=== PATIENT | female | born 2000 | race Caucasian/White ===

== ENCOUNTER 2023-06-03 18:25 | Emergency (ER) | payer MEDICAID, SELFPAY ==
[2023-06-03 18:53] VITALS: BP 127/101; PULSE 107; RESP 22; TEMP 36.4; O2SAT 98
--- NOTE | 2023-06-03 19:05 | ED.GENADUL_ITS ---
HPI General Mode of arrival: ambulatory . Date/Time Provider Initiated Documentation: 06/03/23 18:57 . Limitations to Documentation: no limitations . Information obtained by: patient, RN notes reviewed and old records reviewed . HPI Narrative: 22-year-old female presents to the ER with a chief complaint of suicidal ideation for the last week. She does have a history of major depressive disorder, PTSD, OCD and states that she wants to take all of her medications. She does endorse marijuana and occasional alcohol she reports drinking 2-3 beers or drinks a few days ago. She reports chronic nausea vomiting. She is slightly clammy, slightly tachycardic with a pulse of 107 hypertensive with blood pressure 127/101. She is guarded and avoids eye contact seems calm and cooperative and answers all my questions. She denies doing anything to herself recently to hurt herself. She does have a history of undisclosed self harm, none recent. Related Data Home Medications Medication Instructions Recorded Confirmed docusate sodium 100 mg capsule 100 mg PO BID 06/03/23 06/03/23 duloxetine 40 mg capsule,delayed 40 mg PO DAILY 06/03/23 06/03/23 release sprinkle guanfacine 1 mg tablet 1 mg PO DAILY 06/03/23 06/03/23 hydroxyzine HCl 25 mg tablet 25 mg PO BID 06/03/23 06/03/23 meloxicam 15 mg tablet 15 mg PO DAILY 06/03/23 06/03/23 mirtazapine 15 mg tablet 15 mg PO DAILY 06/03/23 06/03/23 naltrexone 50 mg tablet 50 mg PO DAILY 06/03/23 06/03/23 Allergies Allergy/AdvReac Type Severity Reaction Status Date / Time No Known Allergies Allergy Unverified 06/03/23 19:48 General Stated Complaint: PsychEval CIERA: 2 Review of Systems All systems reviewed & are unremarkable except as noted in HPI and below Constitutional Constitutional: Denies fever(s) and Denies headache(s) ENT Ears, Nose, Mouth, and Throat: Denies headache(s) Gastrointestinal Gastrointestinal: Reports diarrhea (Patient reports chronic) and Reports nausea (Patient reports chronic) Neurologic Neurologic: Denies headache(s) Psychiatric Psychiatric: Reports as per HPI, Reports depression and Reports suicidal ideation Exam Narrative Exam Narrative: Constitutional: Alert and oriented x3. Appears stated age. Normal body habitus. Disheveled, smells of body odor, slightly clammy. Head: Normocephalic, no trauma. Eyes: Pupils PERRL, Red reflex noted, EOM's intact. Eyelids symmetrical without lesions, discharge, or swelling. Chest: RRR, Normal S1, S2, distal pulses intact. Resp: Lungs clear to auscultation bilaterally, no wheezes, rales, or rhonchi. Abdomen: Soft, non-distended, Normoactive bowel sounds all 4 quads. Musculoskeletal: Normal gait, 5/5 strength to all four extremities. Skin: No suspicious rashes or lesions. Capillary refill less than 2 sec. Neurologic: Cranial nerves II-XII intact. Alert and oriented x 3. Motor: No de ficits noted. Sensory: Intact bilaterally all 4 extremities. Reflexes: DTR's intact bilaterally.. Hematologic/Lymphatic: No ecchymosis, no lymphadenopathy. Psych: See below. Psych Appearance: disheveled Speech and Movement: speech and movement normal and slowed movement Mood: anxious mood Affect: labile affect and blunted Attitude: cooperative Thought Process: normal Thought Content: suicidality Insight: insight good Judgment: judgment good Course Vital Signs Vital signs: Vital Signs Temperature 36.4 C 06/03/23 18:53 Pulse 107 06/03/23 18:53 Respiratory Rate 22 06/03/23 18:53 Blood Pressure 127/101 06/03/23 18:53 Pulse Oximetry 98 06/03/23 18:53 Temperature 36.4 C 06/03/23 18:53 Temperature Source Tympanic 06/03/23 18:53 Pulse 107 06/03/23 18:53 Respiratory Rate 22 06/03/23 18:53 Blood Pressure 127/101 06/03/23 18:53 Pulse Oximetry 98 06/03/23 18:53 Oxygen Delivery Method Room Air 06/03/23 18:53 Oxygen Flow Rate 0 06/03/23 18:53 Lab/Test Results Lab/Test Results: POC- Test(urine) Negative Medical Decision Making 22-year-old female presents to the ER with a chief complaint of suicidal ideation for the last week. She does have a history of major depressive disorder, PTSD, OCD and states that she wants to take all of her medications. She does endorse marijuana and occasional alcohol she reports drinking 2-3 beers or drinks a few days ago. She reports chronic nausea vomiting. She is slightly clammy, slightly tachycardic with a pulse of 107 hypertensive with blood pressure 127/101. She is guarded and avoids eye contact seems calm and cooperative and answers all my questions. She denies doing anything to herself recently to hurt herself. She does have a history of undisclosed self harm, none recent. Patient does not qualify for smart medical clearance form due to her vital signs, workup ordered including CBC CMP TSH, urinalysis UDS urine . 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 Patient medically cleared. Labs are noted below. 2107: Chelsea with [facility] reports they are seeking voluntary inpatient placement for suicidal ideation. Patient does have a plan. Will place her daily medications diet vital signs. Care is to be handed off to oncoming provider Dr. San pending placement, patient has remained hemodynamically stable, cooperative throughout the remainder of her stay. She did receive her p.m. medications. Orders placed. Lab Data Lab results reviewed: Yes I reviewed the patient's lab results. Labs: Laboratory Tests Range/Units 06/03/23 06/03/23 18:38 19:20 WBC 10^3/uL 4.01 RBC 10^6/uL 4.82 Hgb g/dL 14.7 Hct % 42.2 MCV fL 88 MCH pg 30.5 MCHC % 34.8 RDW % 12.7 Plt Count 10^3/uL 242 MPV fL 10.3 Immature Gran % 0.2 Neutrophils % 43.9 Lymphocytes % 38.4 Monocytes % 17.0 Eosinophils % 0.0 Basophils % 0.5 Nucleated RBC % % 0.0 Absolute Neutrophils 10^3/uL 1.76 Absolute Lymphocytes 10^3/uL 1.54 Absolute Monocytes 10^3/uL 0.68 Absolute Eosinophils 10^3/uL 0.00 Absolute Basophils 10^3/uL 0.02 Sodium mmol/L 139 Potassium mmol/L 3.5 Chloride mmol/L 101 Carbon Dioxide mmol/L 26.8 Anion Gap mmol/L 11.2 BUN mg/dL 7 Creatinine mg/dL 0.8 Est GFR (CKD-EPI 2020) Not Applicable Glucose mg/dL 94 Calcium mg/dL 9.2 Total Bilirubin mg/dL 0.6 AST U/L 12 ALT U/L 18 Alkaline Phosphatase U/L 79 Total Protein g/dL 8.0 Albumin g/dL 4.1 TSH uIU/mL 4.12 Urine Color Yellow Urine Clarity Clear Urine pH 6.5 Ur Specific [place] 1.025 Urine Protein mg/dL Trace Urine Ketones mg/dL 40 Urine Blood Negative Urine Nitrite Negative Urine Bilirubin Small Urine Urobilinogen mg/dL 1.0 Ur Leukocyte Esterase Negative Urine Glucose mg/dL Negative Salicylates mg/dL < 2.8 Urine Opiates Screen (Negative) Negative Urine Methadone Screen (Negtative) Negative Acetaminophen ug/mL < 2 Ur Barbiturates Screen (Negative) Negative Ur Tricyclics Screen (Negtive) Negative Ur Amphetamines Screen (Negative) Negative U Benzodiazepines Scrn (Negative) Negative Urine Cocaine Screen (Negative) Negative Ur THC Screen (Negative) Positive A Ethyl Alcohol mg/dL < 3.0 Quality:SDOH Health Related Social Needs: No Data to Display PFSH All Active Problems (Updated 06/03/23 @ 19:11 by Maritza Braun NP) Korey-Danlos syndrome (Acute) OCD (obsessive compulsive disorder) (Acute) Major depression (Chronic) PTSD (post-traumatic stress disorder) (Acute) Social History Smoking risk assessment performed?: No Female Reproductive History Menstrual control method: implanted (Nexplanon) Discharge Plan Discharge Details Chief Complaint: PsychEval Primary Care Provider: Ally Bradford ED Provider: Maritza Braun Home Meds and New Rx's Prescriptions: No Action duloxetine 40 mg capsule, delayed rel sprinkle 40 mg PO DAILY mirtazapine 15 mg tablet 15 mg PO DAILY guanfacine 1 mg tablet 1 mg PO DAILY meloxicam 15 mg tablet 15 mg PO DAILY docusate sodium 100 mg capsule 100 mg PO BID naltrexone 50 mg tablet 50 mg PO DAILY hydroxyzine HCl 25 mg tablet 25 mg PO BID
[2023-06-03 19:26] LABS: Abs Immature Grans 0.01 10^3/uL; Absolute Basophil Count 0.02 10^3/uL; Absolute Lymphocyte Count 1.54 10^3/uL; Absolute Monocyte Count 0.68 10^3/uL; Absolute Neutrophil Count 1.76 10^3/uL; Basophils % 0.5; HCT 42.2 %; HGB 14.7 g/dL; Immature Grans % 0.2; Lymphocytes % 38.4; MCH 30.5 pg; MCHC 34.8 %; MCV 88 fL; MPV 10.3 fL; Neutrophils % 43.9; Platelet Count 242 10^3/uL; RBC 4.82 10^6/uL; RDW 12.7 %; RDW-SD 40.7 fL; WBC 4.01 10^3/uL
[2023-06-03 19:26] LABS: Bilirubin Small; Blood Negative; Clarity Clear; Glucose Negative; Ketones 40 mg/dL; Leukocyte Esterase Negative; Nitrite Negative; Specific Gravity 1.025; pH 6.5
[2023-06-03 19:44] LABS: *AMPHETAMINES SCREEN URINE Negative (Negative); *BARBITURATES SCREEN URINE Negative (Negative); *BENZODIAZEPINES SCREEN URINE Negative (Negative); Cannabinoids THC Positive (Negative); Cocaine Screen,Urine Negative (Negative); METHADONE URINE SCREEN Negative (Negtative); OPIATES URINE SCREEN Negative (Negative)
[2023-06-03 19:45] LABS: Tricyclic Antidepressants Negative (Negtive)
[2023-06-03 19:51] LABS: ALT 18 U/L; AST 12 U/L; Albumin 4.1 g/dL; Alkaline Phosphatase 79 U/L; Anion Gap 11.2 mmol/L; BUN 7 mg/dL; Bilirubin, Total 0.6 mg/dL; CO2 26.8 mmol/L; CREATININE 0.8 mg/dL; Calcium 9.2 mg/dL; Chloride 101 mmol/L; Glucose 94 mg/dL; Potassium 3.5 mmol/L; Sodium 139 mmol/L; TSH (W/Ref FT4) 4.12 uIU/mL
[2023-06-03 19:52] LABS: Salicylate < 2.8 mg/dL
[2023-06-03 19:53] LABS: Acetaminophen < 2 ug/mL
[2023-06-03 19:59] LABS: ETHANOL BLOOD < 3.0 mg/dL
[2023-06-03] MEDS: Docusate Sodium 100 MG/10 ML CUP PO (22:26)
[2023-06-03] MEDS: hydrOXYzine HCL 25 MG TAB PO (22:26)
[2023-06-04] MEDS: guanFACINE 1 MG TAB PO (00:07)
[2023-06-04] MEDS: Mirtazapine 15 MG TAB PO (00:08)
--- NOTE | 2023-06-04 02:55 | PDOC.MHCN_ITS ---
Date of service: 06/03/23 Time of Service: 20:40 PHQ-9 Over the last 2 weeks, how often have you been bothered by any of the following problems? 1. Little interest or pleasure in doing things: nearly every day 2. Feeling down, depressed, or hopeless: nearly every day 3. Trouble falling or staying asleep, or sleeping too much: nearly every day 4. Feeling tired or having little energy: nearly every day 5. Poor appetite or overeating: nearly every day 6. Feeling bad about yourself - or that you are a failure or have let yourself and your family down: nearly every day 7. Trouble concentrating on things, such as reading the newspaper or watching television: nearly every day 8. Moving or speaking so slowly that other people could have noticed? - Or the opposite - being so fidgety or restless that you have been moving around a lot more than usual: not at all 9. Thoughts that you would be better off or of hurting yourself in some way: nearly every day Total score: 24 Source: Developed by Drs. Mic Pedro, Yoli Santana, Levar James and colleagues, with an educational emre from [employer]. Suicide Severity Rate CSSRS Have you wished you were or wished you could go to sleep and not wake up?: Yes Have you actually had any thoughts of killing yourself?: Yes CSSRS2 Have you been thinking about how you might do this?: Yes Have you had these thoughts and had some intention of acting on them?: Yes Have you started to work out or worked out the details of how to kill yourself? Do you intend to carry out this plan?: Yes CSSRS3 Have you ever done anything, started to do anything or prepared to do anything to end your life?: Yes CSSRS4 Was this within the past three months?: No Screening Score Total Score: 6 Screening: Positive Mental Health Emergency Note Release [facility] release signed:: Yes Reason for Visit In the last 2 weeks has the pt presented for ES prior to today?: No Non Suicidal Self Injury Current: Yes, cutting History: yes, cutting, last time around a month ago Safety Risk/Harm to Self or Others Current Ideation to Harm Self or Others: Yes to self. Intent: yes, has intent. Plan: yes,has a plan. History of suicide attempt: yes,history of suicide attempt reported. Details of previous suicide attempt: Client tried to overdose on medications in 2013 Asssessment/Mental Status Appearance: Disheveled Attitude: Cooperative Behavior: Unremarkable Speech: Soft, Slow and Hesitant Affect: Cogruent with mood Mood: Depressed Thought process: Unremarkable Hallucinations: No evidence Delusions: No evidence Attention: Unremarkable Perception: Not impaired Orientation: Fully orientated Memory: Intact Insight: Good Judgement: Good Neurovegetative Symptoms Sleep: Decrease Appetitie: Decrease Interests: Decrease Energy: Decrease Substance Use: Have you used substances in the last 7 days?: yes, AL and THC two-three days prior Impression Client reported to this greeting card writer that she has been suffering from a depressive episode for the past two months. Client reported that she has been suffering from thoughts of suicide for the past two weeks. Client reported a plan, intent, and access to end her life by suicide. Client reported that her plan would be to take all her medications with the intent to overdose, client reported that she has attempted before in the past but was unsuccessful and slept for 20 hours after the attempt. Client reported a decrease in her sleep, appetite, energy, and interest. Client rated her intent a 9/10 if she were to leave the hospital. Client reported the occasional usage of THC and alcohol, both being used two- three days prior to ED visit. Client reported that she is currently prescribed medications. Client appeared to this greeting card writer and extremely depressed due to her slow, soft speech. Clients? appearance to this greeting card writer was unremarkable. Client was cooperative during the assessment process. Client reported that she came to the ED looking for inpatient treatment at this time for her current depressive episode. Client scored a 24/27 on the PHQ-9, answered yes to all the CSSRS and PC-PTSD-5 questions during the assessment. Client is currently set up with the agency and does see a therapist with the agency. Client did miss her most recent appo intment due to the current state the client is in. Client reported that she lives with her mother and is not currently working or going to school. Plan/Disposition Recommended Disposition: Hospitalization No. Plan: [facility] the client. Client will need daily reassessments until placement is found.? Reports/communication Outcome discussed with: ED/Personnel
--- NOTE | 2023-06-04 03:10 | NUR.NOTE ---
Pt medical clearance info sent to [facility]
--- NOTE | 2023-06-04 08:03 | W.EDPROG ---
Date of service: 06/04/23 Time of Service: 08:03 Medical Decision Making Patient here voluntarily for SI and no issues reported on previous shift currently calm and cooperative with no acute complaints will continue to monitor until safe disposition found Quality:SDOH Health Related Social Needs: No Data to Display Discharge Plan Discharge Details Chief Complaint: PsychEval Primary Care Provider: Ally Bradford ED Provider: Vishnu Hale Home Meds and New Rx's Prescriptions: No Action duloxetine 40 mg capsule, delayed rel sprinkle 40 mg PO DAILY mirtazapine 15 mg tablet 15 mg PO DAILY guanfacine 1 mg tablet 1 mg PO DAILY meloxicam 15 mg tablet 15 mg PO DAILY docusate sodium 100 mg capsule 100 mg PO BID naltrexone 50 mg tablet 50 mg PO DAILY hydroxyzine HCl 25 mg tablet 25 mg PO BID
[2023-06-04 08:59] VITALS: BP 129/80; PULSE 87; RESP 16; TEMP 206.6; TEMP 97; O2SAT 99
[2023-06-04] MEDS: Naltrexone 50 MG TAB PO (10:41)
[2023-06-04] MEDS: Docusate Sodium 100 MG CAP PO (10:41)
[2023-06-04] MEDS: Meloxicam 15 MG TAB PO (10:42)
== END 2023-06-04 14:51 ==
PROVIDERS: Registered Nurse Emergency; Emergency Provider Emergency Medicine; PCP Family Medicine
DX: R45.851 Suicidal ideations (principal); F32.A Depression, unspecified
CPT/HCPCS: 00123; 80053; 80307; 81025; 96127; 99285; 80320; 80329; 81003; 84443; 85025; 99284

== ENCOUNTER 2023-08-12 18:19 | Emergency (ER) | payer MEDICAID, SELFPAY ==
[2023-08-12 18:23] VITALS: BP 132/72; PULSE 104; RESP 18; TEMP 36.4; O2SAT 97
[2023-08-12 18:34] VITALS: BP 132/72; PULSE 104; RESP 18; TEMP 36.4; O2SAT 97
[2023-08-12 18:35] VITALS: BP 132/72; PULSE 104; RESP 18; TEMP 36.4; O2SAT 97
[2023-08-12 18:36] VITALS: BP 132/72; PULSE 104; RESP 18; TEMP 36.4; O2SAT 97
--- NOTE | 2023-08-12 18:36 | ED.GENADUL_ITS ---
Discharge Plan Disposition Patient Disposition: Home Condition: Stable Discharge Details Clinical Impression: Gastroenteritis Primary Care Provider: Ally Bradford ED Provider: Cooper Reyez Home Meds and New Rx's Prescriptions: New ondansetron 4 mg tablet,disintegrating 4 mg PO Q8H PRN (Reason: nausea and vomiting) Qty: 30 0RF Continued duloxetine 40 mg capsule, delayed rel sprinkle 40 mg PO DAILY mirtazapine 15 mg tablet 30 mg PO DAILY guanfacine 1 mg tablet 1 mg PO BID meloxicam 15 mg tablet 15 mg PO DAILY docusate sodium 100 mg capsule 100 mg PO BID naltrexone 50 mg tablet 50 mg PO DAILY hydroxyzine HCl 25 mg tablet 50 mg PO QHS gabapentin 300 mg capsule 300 mg PO TID Discharge Instructions Instructions: Ondansetron (By mouth), Gastroenteritis (ED) Additional Instructions: You were seen in the emergency department for your likely viral gastroenteritis. Your laboratory workup is completely reassuring, there is no elevation of white blood cells, no derangement of your electrolytes, your magnesium is within normal limits indicating nonurgent GI losses of vomiting and diarrhea. Your liver enzymes and pancreas enzymes are within normal limits I do not think there is any gallbladder or gallstone pathology occurring. Please try to use the prescribed Zofran at home 20 to 30 minutes before attempting p.o. intake, do not try to overwhelm your stomach, go very slow with foods and hydration. I sent your prescription of Zofran to [facility] in [place]. Please use therapeutic dosing of Tylenol (acetamenophen) & Advil (ibuprofen) in an alternating fashion as follows: Take 1000mg of Tylenol every 6 hours without missing doses- that is 4 times per day. Long Term in between the Tylenol dosings, take 400-600mg of Advil also on a 6 hour schedule, that is also 4 times per day. The daily maximum dosing of Tylenol is 4000mg, and the daily maximum dosing of Advil is 2400mg. This is safe to do for weeks. Please note that some common cold medications & prescription pain medications may contain acetamenophen and you need to read OTC drug labels and factor that in to maximum daily dosings. Please return for severe increase in abdominal pain especially with fever, intractable nausea and vomiting despite her treatment, black or bloody stools. Referrals: Alyl Bradford [Primary Care Provider] - HPI General Date/Time Provider Initiated Documentation: 08/12/23 18:26 . HPI Narrative: 23 year-old female presents to ED today by POV/ambulating with a chief complaint of nausea/vomiting/diarrhea with onset yesterday- reports vomiting x4, did have a preceding mild URI that appeared to resolve last week. Quality described as abdominal pain diffusely, no radiation to black/bloody diarrhea, blood-tinged emesis, overt fever, cough, shortness of breath, dizziness, weakness. Severity is described as severe. Palliating factors include nothing specific attempted. Provoking factors include nothing specific. 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 Patient not anticoagulated. Related Data Home Medications Medication Instructions Recorded Confirmed docusate sodium 100 mg capsule 100 mg PO BID 06/03/23 08/12/23 duloxetine 40 mg capsule,delayed 40 mg PO DAILY 06/03/23 08/12/23 release sprinkle guanfacine 1 mg tablet 1 mg PO BID 06/03/23 08/12/23 hydroxyzine HCl 25 mg tablet 50 mg PO QHS 06/03/23 08/12/23 meloxicam 15 mg tablet 15 mg PO DAILY 06/03/23 08/12/23 mirtazapine 15 mg tablet 30 mg PO DAILY 06/03/23 08/12/23 naltrexone 50 mg tablet 50 mg PO DAILY 06/03/23 08/12/23 gabapentin 300 mg capsule 300 mg PO TID 08/12/23 08/12/23 ondansetron 4 mg disintegrating 4 mg PO Q8H PRN nausea and 08/12/23 tablet vomiting #30 tabs Previous Rx's Medication Instructions Recorded ondansetron 4 mg disintegrating 4 mg PO Q8H PRN nausea and 08/12/23 tablet vomiting #30 tabs Allergies Allergy/AdvReac Type Severity Reaction Status Date / Time No Known Allergies Allergy Unverified 06/04/23 11:32 General Stated Complaint: Abd Prob CIERA: 3 Review of Systems All systems reviewed & are unremarkable except as noted in HPI and below Exam Narrative Exam Narrative: GENERAL APPEARANCE: Well-nourished, non-toxic, awake and alert, atraumatic, no acute distress. SKIN: Warm, pink, dry, intact, without rashes/lesions/ulcerations. HEAD: Normocephalic, atraumatic, normal hair distribution for gender/age. EYES: Pupils PERRLA, EOMs intact without nystagmus, normal conjunctiva, no exudates on lids/lashes. ENT: Nares patent, no circumoral cyanosis, no facial swelling NECK: Supple, trachea midline, painless cervical ROM. LUNGS/CHEST: Lungs CTA bilaterally- no rhonchi/rales/wheezes diffusely, non- labored respirations, normal A/P diameter, symmetrical expansion, no chest wall deformity HEART (CV/PV): Regular rate and rhythm without murmur, no peripheral edema, no JVD. ABDOMEN: Soft, non-distended, no guarding, LLQ tenderness, epigastric/RUQ tenderness, negative Rovsing's MSK: Normal ROM, no swelling/deformity to bilateral UEs or LEs, moving all extremities without weakness, no cyanosis, spine midline without tenderness, normal curvature. NEURO: Mental Status AAOx4 - alert to person, place, time, events No facial droop, no forehead involvement. Motor: No focal weakness - strength 5/5 in bilateral UEs and LEs, proximal and distal, symmetric. Sensory: sensation intact to light touch globally. Gait normal: patient ambulated without ataxia into ED room. PSYCH: euthymic, cooperative, pleasant, appropriate speech Course Vital Signs Vital signs: Vital Signs Temperature 36.4 C 08/12/23 18:23 Pulse 104 08/12/23 18:23 Respiratory Rate 18 08/12/23 18:23 Blood Pressure 132/72 08/12/23 18:23 Pulse Oximetry 97 08/12/23 18:23 Temperature 36.4 C 08/12/23 18:35 Temperature Source Temporal Artery Scan 08/12/23 18:35 Pulse 104 08/12/23 18:35 Respiratory Rate 18 08/12/23 18:35 Blood Pressure 132/72 08/12/23 18:35 Blood Pressure Position Sitting 08/12/23 18:35 Pulse Oximetry 97 08/12/23 18:35 Oxygen Delivery Method Room Air 08/12/23 18:35 Oxygen Flow Rate 0 08/12/23 18:35 Lab/Test Results Lab/Test Results: POC- Test(urine) Negative Medical Decision Making This dictation utilizes [id number] dictation software and may contain unedited grammatical errors. 23 y/o F presents to ED today with a chief complaint of N/V/D x2 days, had a preceding URI. Denies profound weakness, denies black/bloody diarrhea, no overt fevers, no syncope/chest pain/shortness of breath. Patients' medical history: Korey-Danlos, hypermobile with some IBS type symptoms. Family and social history: noncontributory. Pertinent exam findings / vital signs include RUQ/LLQ abdominal tenderness, nontoxic vitals, benign cardiopulmonary exam, neuro intact. Differential / pathologies of concern include gastroenteritis, colitis, delayed gastric emptying/gastroparesis, viral syndrome, biliary pathology. Diagnostic studies of: -CBC, BMP, liver panel, magnesium, lipase, lactate, CRP/ESR, urinalysis, POC urine test, COVID/flu/RSV PCR > imaging decision based on labs. -POC urine negative -Lactate 1.8 -CBC benign -CMP no abnormality at all -Magnesium WNL -UA benign -Lipase WNL -CRP/ESR WNL Interventions of: -1L IVF LR, 4mg IV Zofran, 15mg IV toradol, 1g IV APAP. ED Course/Assessment/Plan: 23-year-old biological female patient presents with nausea vomiting and diarrhea with some diffuse abdominal pain, her symptoms improved significantly with IV Tylenol and Toradol and Zofran and IV fluids. Her laboratory workup is very reassuring I do not think she needs imaging at this time. She was comfortable with watchful waiting at home for likely resolution of viral gastroenteritis within the coming days. I counseled her on therapeutic dosing of Tylenol and ibuprofen and sent a prescription for Zofran to [facility] in [place]. The patient's mother was present also for this discussion and they are to return for any severe increase in abdominal pain especially with fever, intractable nausea vomiting despite our treatment or any black or bloody stools. Findings not consistent with perforated viscus, appendicitis, biliary tree pathology, pancreatitis, . Disposition of Gastroenteritis. Patient verbalized understanding of the plan and return to ED criteria and engaged in shared decision making. Medical Records Medical records reviewed: Yes I reviewed the patient's medical records. Lab Data Lab results reviewed: Yes I reviewed the patient's lab results. Labs: Laboratory Tests Range/Units 08/12/23 08/12/23 18:30 19:05 WBC 10^3/uL 7.25 RBC 10^6/uL 4.82 Hgb g/dL 14.8 Hct % 43.0 MCV fL 89 MCH pg 30.7 MCHC % 34.4 RDW % 11.9 Plt Count 10^3/uL 292 MPV fL 10.8 Immature Gran % 0.3 Neutrophils % 75.7 Lymphocytes % 19.4 Monocytes % 4.0 Eosinophils % 0.0 Basophils % 0.6 Nucleated RBC % % 0.0 Absolute Neutrophils 10^3/uL 5.49 Absolute Lymphocytes 10^3/uL 1.41 Absolute Monocytes 10^3/uL 0.29 Absolute Eosinophils 10^3/uL 0.00 Absolute Basophils 10^3/uL 0.04 ESR mm/hr 11 VBG Lactate mmol/L 1.8 Sodium mmol/L 141 Potassium mmol/L 3.6 Chloride mmol/L 103 Carbon Dioxide mmol/L 25.1 Anion Gap mmol/L 12.9 BUN mg/dL 9 Creatinine mg/dL 0.9 Est GFR (CKD-EPI 2020) Not Applicable Glucose mg/dL 108 Calcium mg/dL 9.5 Magnesium mg/dL 1.9 Total Bilirubin mg/dL 0.5 Conjugated Bilirubin mg/dL 0.1 AST U/L 16 ALT U/L 20 Alkaline Phosphatase U/L 96 C-Reactive Protein mg/dL < 0.50 Total Protein g/dL 8.1 Albumin g/dL 4.3 Lipase U/L 25 Urine Color Yellow Urine Clarity Clear Urine pH 7.5 Ur Specific [place] 1.020 Urine Protein mg/dL Negative Urine Ketones mg/dL >=160 Urine Blood Negative Urine Nitrite Negative Urine Bilirubin Negative Urine Urobilinogen mg/dL 0.2 Ur Leukocyte Esterase Negative Urine Glucose mg/dL Negative Quality:SDOH Health Related Social Needs: No Data to Display PFSH All Active Problems (Updated 08/12/23 @ 19:39 by MATT High) Gastroenteritis (Acute) Korey-Danlos syndrome (Acute) OCD (obsessive compulsive disorder) (Acute) Major depression (Chronic) PTSD (post-traumatic stress disorder) (Acute) Social History Smoking/Tobacco Use Status: Never Smoking risk assessment performed?: Yes Drug use: Occasionally Substance use type: marijuana Do you feel safe at home: Yes Female Reproductive History Menstrual control method: implanted (Nexplanon)
[2023-08-12] MEDS: Ondansetron 4 MG/2 ML VIAL IVP (18:56)
[2023-08-12] MEDS: Ketorolac 15 MG/ML VIAL IVP (18:57)
[2023-08-12] MEDS: ACETAMINOPHEN 1,000 MG/100 ML BTL 400 MG IVPB (19:02)
[2023-08-12] MEDS: Lactated Ringers 1,000 ML 1000 ML IV (19:07)
[2023-08-12 19:10] LABS: Lactate 1.8 mmol/L
[2023-08-12 19:11] LABS: Abs Immature Grans 0.02 10^3/uL; Absolute Basophil Count 0.04 10^3/uL; Absolute Lymphocyte Count 1.41 10^3/uL; Absolute Monocyte Count 0.29 10^3/uL; Absolute Neutrophil Count 5.49 10^3/uL; Basophils % 0.6; HGB 14.8 g/dL; Immature Grans % 0.3; Lymphocytes % 19.4; MCH 30.7 pg; MCHC 34.4 %; MCV 89 fL; MPV 10.8 fL; Neutrophils % 75.7; Platelet Count 292 10^3/uL; RBC 4.82 10^6/uL; RDW 11.9 %; RDW-SD 38.9 fL; WBC 7.25 10^3/uL
[2023-08-12 19:13] LABS: ESR 11 mm/hr
[2023-08-12 19:20] LABS: Bilirubin Negative; Blood Negative; Clarity Clear; Glucose Negative; Ketones >=160 mg/dL; Leukocyte Esterase Negative; Nitrite Negative; Urobilinogen 0.2 mg/dL; pH 7.5
[2023-08-12 19:32] LABS: ALT 20 U/L; AST 16 U/L; Albumin 4.3 g/dL; Alkaline Phosphatase 96 U/L; Anion Gap 12.9 mmol/L; BUN 9 mg/dL; Bilirubin, Direct 0.1 mg/dL; Bilirubin, Total 0.5 mg/dL; CO2 25.1 mmol/L; CREATININE 0.9 mg/dL; Calcium 9.5 mg/dL; Chloride 103 mmol/L; Glucose 108 mg/dL; Lipase 25 U/L; Magnesium 1.9 mg/dL; Potassium 3.6 mmol/L; Sodium 141 mmol/L; Total Protein 8.1 g/dL
[2023-08-12 19:33] LABS: C-Reactive Protein < 0.50 mg/dL
[2023-08-12] MEDS: Ondansetron O.D.T. 4 MG TABEF, 3 TABS/BTL PO (19:49)
[2023-08-12 19:50] VITALS: BP 126/77; PULSE 77; RESP 18; O2SAT 99
[2023-08-12 20:22] LABS: COVID-19 PCR Negative; Influenza A PCR Negative; Influenza B PCR Negative; RSV PCR Negative; Source Nasopharynx
== END 2023-08-12 19:51 | disposition home or self-care (01) ==
PROVIDERS: Emergency Provider Physician Assistant; PCP Family Medicine
DX: K52.9 Noninfective gastroenteritis and colitis, unspecified; Q79.62 Hypermobile Ehlers-Danlos syndrome; R11.2 Nausea with vomiting, unspecified
CPT/HCPCS: 80048; 80076; 81025; 83690; 85652; 87637; 96374; 96375; 99284; 81003; 83605; 83735; 85025; 86140; J0131; J1885; J2405

== ENCOUNTER 2023-08-15 10:32 | Emergency (ER) | payer MEDICAID, SELFPAY ==
[2023-08-15] VITALS (25 sets, daily range): BP systolic 129–159; BP diastolic 79–116; PULSE 75–146; RESP 20; TEMP 37.1; O2SAT 94–99
--- NOTE | 2023-08-15 10:48 | W.ED.GENAD ---
Discharge Plan Disposition Patient Disposition: Home Condition: Stable Discharge Details Clinical Impression: Anxiety, Nausea & vomiting Primary Care Provider: Ally Bradford ED Provider: Vishnu Hale Home Meds and New Rx's Prescriptions: Continued duloxetine 40 mg capsule, delayed rel sprinkle 40 mg PO DAILY mirtazapine 15 mg tablet 30 mg PO DAILY guanfacine 1 mg tablet 1 mg PO BID meloxicam 15 mg tablet 15 mg PO DAILY docusate sodium 100 mg capsule 100 mg PO BID naltrexone 50 mg tablet 50 mg PO DAILY hydroxyzine HCl 25 mg tablet 50 mg PO QHS gabapentin 300 mg capsule 300 mg PO TID ondansetron 4 mg tablet,disintegrating 4 mg PO Q8H PRN (Reason: nausea and vomiting) Qty: 30 0RF Discharge Instructions Additional Instructions: Lab work did not show concerning findings at this time Follow-up with your primary care provider this week I feel more ill, have severe worsening pain or persistent vomiting return to the emergency department for reevaluation HPI General Mode of arrival: ambulatory. Date/Time Provider Initiated Documentation: 08/15/23 10:33. Limitations to Documentation: no limitations. Information obtained by: patient. History of Present Illness 23 year old U presents to the emergency department with the chief complaint of n/v, described as moderate, Patient started experiencing this day(s) (4) and it has been intermittent. No relieving factors improve symptom(s), No exacerbating factors reported . Patient notes denies chest pain, fever/chills and shortness of breath. Patient did receive the following treatments prior to arrival, none Related Data Home Medications Medication Instructions Recorded Confirmed docusate sodium 100 mg capsule 100 mg PO BID 06/03/23 08/15/23 duloxetine 40 mg capsule,delayed 40 mg PO DAILY 06/03/23 08/15/23 release sprinkle guanfacine 1 mg tablet 1 mg PO BID 06/03/23 08/15/23 hydroxyzine HCl 25 mg tablet 50 mg PO QHS 06/03/23 08/15/23 meloxicam 15 mg tablet 15 mg PO DAILY 06/03/23 08/15/23 mirtazapine 15 mg tablet 30 mg PO DAILY 06/03/23 08/15/23 naltrexone 50 mg tablet 50 mg PO DAILY 06/03/23 08/15/23 gabapentin 300 mg capsule 300 mg PO TID 08/12/23 08/15/23 ondansetron 4 mg disintegrating 4 mg PO Q8H PRN nausea and 08/12/23 08/15/23 tablet vomiting #30 tabs Previous Rx's Medication Instructions Recorded ondansetron 4 mg disintegrating 4 mg PO Q8H PRN nausea and 08/12/23 tablet vomiting #30 tabs Allergies Allergy/AdvReac Type Severity Reaction Status Date / Time No Known Allergies Allergy Unverified 08/15/23 11:13 General Stated Complaint: Abd Prob CIERA: 3 Review of Systems All systems reviewed & are unremarkable except as noted in HPI and below Constitutional Constitutional: Denies chills, Denies fever(s) and Denies weakness Cardiovascular Cardiovascular: Denies chest pain and Denies dyspnea Respiratory Respiratory: Denies cough and Denies dyspnea Gastrointestinal Gastrointestinal: Reports abdominal pain, Reports nausea and Reports vomiting Genitourinary Genitourinary: Denies dysuria Genitourinary: Denies dysuria Musculoskeletal Musculoskeletal: Denies joint swelling Integumentary/Breasts Skin/Breast: Denies rash Neurologic Neurologic: Denies weakness Psychiatric Psychiatric: Denies depression Endocrine Endocrine: Denies cold intolerance and Denies heat intolerance Allergic/Immunologic Allergic/Immunologic: Denies urticaria Exam Const General: no acute distress Orientation: alert [facility] Head: normal to inspection Ears: external ears normal General nose exam: external nose normal Mouth: moist mucous membranes Eyes General: appearance normal, both eyes and all related structures Neck Neck: normal visual inspection Resp Effort & Inspection: normal respiratory effort and able to speak in complete sentences Cardio Rate: regular rate GI Palpation: soft, not firm, no guarding and nontender Skin General skin exam: no rashes or lesions noted Neuro General: patient alert and patient oriented x3 Extrem General: normal to inspection Psych Mental Status: mental status grossly normal Course Vital Signs Vital signs: Vital Signs Temperature 37.1 C 08/15/23 10:37 Pulse 111 08/15/23 10:37 Respiratory Rate 08/15/23 10:37 Blood Pressure 144/107 08/15/23 10:37 Pulse Oximetry 96 08/15/23 10:37 Temperature 37.1 C 08/15/23 10:37 Temperature Source Oral 08/15/23 10:37 Pulse 111 08/15/23 10:37 Respiratory Rate 08/15/23 10:37 Blood Pressure 144/107 08/15/23 10:37 Blood Pressure Position Sitting 08/15/23 10:37 Pulse Oximetry 96 08/15/23 10:37 Oxygen Delivery Method Room Air 08/15/23 10:37 Oxygen Flow Rate 0 08/15/23 10:37 Pain Level 4 08/15/23 10:37 Medical Decision Making 23-year-old female with a history of PTSD, OCD, who comes in with nausea vomiting intermittently for several days. Was seen earlier this week and had reassuring lab work and exam was discharged with Zofran. She says the Zofran does help her have nausea but anytime she tries to eat she still throws up. She says when she is throwing up she has some pain in the epigastric area, has no pain currently and has no abdominal tenderness. She is alert and oriented x 4 speaking clearly in no distress. Given lack of abdominal tenderness do not feel imaging at this time indicated, will check for electrolyte abnormalities and hydrate and treat her symptoms with droperidol and reassess. Was unremarkable, did become anxious and hyperventilating after getting droperidol, no rashes or other findings to suggest allergic reaction. Benadryl and Ativan ordered will reassess. Patient feeling better, tolerating p.o., no abdominal tenderness. Do not feel any further testing or imaging indicated, she is stable for discharge and advised to follow-up with her primary care provider return precautions given Differential Diagnosis Differential Diagnosis: Dehydration, cyclic vomiting, cannabinoid hyperemesis syndrome Medical Records Medical records reviewed: Yes I reviewed the patient's medical records. Lab Data Lab results reviewed: Yes I reviewed the patient's lab results. Quality:SDOH Health Related Social Needs: No Data to Display PFSH All Active Problems (Updated 08/15/23 @ 12:24 by Vishnu Hale MD) Nausea & vomiting (Acute) Anxiety (Chronic) Gastroenteritis (Acute) Korey-Danlos syndrome (Acute) OCD (obsessive compulsive disorder) (Acute) Major depression (Chronic) PTSD (post-traumatic stress disorder) (Acute) Social History Smoking/Tobacco Use Status: Never Smoking risk assessment performed?: Yes Drug use: Occasionally Substance use type: marijuana Do you feel safe at home: Yes Female Reproductive History Menstrual control method: implanted (Nexplanon)
[2023-08-15] MEDS: Normal Saline 1,000 ML 1000 ML IV (11:00)
[2023-08-15] MEDS: Droperidol 5 MG/2 ML VIAL 2.5 MG IVP (11:01)
[2023-08-15 11:16] LABS: Abs Immature Grans 0.02 10^3/uL; Absolute Basophil Count 0.03 10^3/uL; Absolute Eosinophil Count 0.02 10^3/uL; Absolute Lymphocyte Count 1.63 10^3/uL; Absolute Monocyte Count 0.32 10^3/uL; Basophils % 0.4; Eosinophils % 0.3; HCT 43.1 %; Immature Grans % 0.3; Lymphocytes % 24.3; MCH 30.9 pg; MCHC 34.8 %; MCV 89 fL; MPV 10.7 fL; Monocytes % 4.8; Neutrophils % 69.9; Platelet Count 254 10^3/uL; RBC 4.86 10^6/uL; RDW 11.8 %; RDW-SD 37.9 fL; WBC 6.72 10^3/uL
[2023-08-15 11:31] LABS: ALT 20 U/L; AST 14 U/L; Albumin 4.5 g/dL; Alkaline Phosphatase 92 U/L; Anion Gap 15.5 mmol/L; BUN 20 mg/dL; Bilirubin, Total 0.9 mg/dL; CO2 22.5 mmol/L; CREATININE 0.8 mg/dL; Calcium 9.3 mg/dL; Chloride 102 mmol/L; Glucose 104 mg/dL; Lipase 27 U/L; Potassium 3.6 mmol/L; Sodium 140 mmol/L; Total Protein 8.2 g/dL
[2023-08-15] MEDS: diphenhydrAMINE 50 MG/ML VIAL 25 MG IVP (11:46)
[2023-08-15 11:52] LABS: HCG Qual (Serum) Negative
[2023-08-15 12:20] LABS: Bilirubin Small; Blood Negative; Clarity Sl Cloudy; Glucose Negative; Ketones >=160 mg/dL; Leukocyte Esterase Negative; Nitrite Negative; Specific Gravity 1.025
[2023-08-15] MEDS: LORazepam 2 MG/ML VIAL 1 MG IVP (12:28)
== END 2023-08-15 13:07 | disposition home or self-care (01) ==
PROVIDERS: Emergency Provider Emergency Medicine; PCP Family Medicine
DX: R11.2 Nausea with vomiting, unspecified (principal); F41.9 Anxiety disorder, unspecified
CPT/HCPCS: 80053; 81025; 83690; 96361; 96374; 96375; 99284; 81003; 83735; 84703; 85025; 99283; J1200; J1790; J2060

== ENCOUNTER 2023-09-18 18:24 | Emergency (ER) | payer MEDICAID, SELFPAY ==
[2023-09-18 18:26] VITALS: BP 125/92; PULSE 119; RESP 18; TEMP 37.5; O2SAT 98
--- NOTE | 2023-09-18 18:32 | ED.GENADUL_ITS ---
Discharge Plan Disposition Patient Disposition: Home Condition: Stable Discharge Details Clinical Impression: Nausea & vomiting Primary Care Provider: Ally Bradford ED Provider: Sheila Marques Home Meds and New Rx's Prescriptions: Continued duloxetine 40 mg capsule, delayed rel sprinkle 40 mg PO DAILY mirtazapine 15 mg tablet 30 mg PO DAILY guanfacine 1 mg tablet 1 mg PO BID meloxicam 15 mg tablet 15 mg PO DAILY docusate sodium 100 mg capsule 100 mg PO BID naltrexone 50 mg tablet 50 mg PO DAILY hydroxyzine HCl 25 mg tablet 50 mg PO QHS gabapentin 300 mg capsule 300 mg PO TID Discharge Instructions Instructions: Acute Nausea and Vomiting (ED) Additional Instructions: Clear liquids advance diet as tolerated Use ondansetron 4 mg every 4 hours if needed for nausea and vomiting Referrals: Ally Bradford [Primary Care Provider] - (If needed) HPI General Mode of arrival: ambulatory . Date/Time Provider Initiated Documentation: 09/18/23 18:31 . Limitations to Documentation: no limitations . Information obtained by: patient . HPI Narrative: Presents with a 1 day history of nausea vomiting and lower abdominal discomfort. States she vomited twice today unable to keep anything down. No fever or chills no close sick contacts with similar symptoms. Does not have a menstrual period has an Implanon. Reports that she has a history of cannabinoid hyperemesis and has had similar symptoms associated with that. Tried a warm pack to her abdomen with no significant improvement in her symptoms. She does not try any ondansetron prior to arrival states that she Related Data Home Medications Medication Instructions Recorded Confirmed docusate sodium 100 mg capsule 100 mg PO BID 06/03/23 09/18/23 duloxetine 40 mg capsule,delayed 40 mg PO DAILY 06/03/23 09/18/23 release sprinkle guanfacine 1 mg tablet 1 mg PO BID 06/03/23 09/18/23 hydroxyzine HCl 25 mg tablet 50 mg PO QHS 06/03/23 09/18/23 meloxicam 15 mg tablet 15 mg PO DAILY 06/03/23 09/18/23 mirtazapine 15 mg tablet 30 mg PO DAILY 06/03/23 09/18/23 naltrexone 50 mg tablet 50 mg PO DAILY 06/03/23 09/18/23 gabapentin 300 mg capsule 300 mg PO TID 08/12/23 09/18/23 Allergies Allergy/AdvReac Type Severity Reaction Status Date / Time No Known Allergies Allergy Unverified 09/18/23 18:30 General Stated Complaint: Nausea/Vomit/Diar CIERA: 3 Review of Systems All systems reviewed & are unremarkable except as noted in HPI and below Exam Const General: cooperative, comfortable and no acute distress Nutritional Appearance: average body habitus Orientation: alert, awake and oriented x3 HENMT Head: normal to inspection, normocephalic and atraumatic Face and sinus: normal facial exam Mouth: moist mucous membranes abnormal (Slightly dry no exudate) Eyes General: appearance normal, both eyes and all related structures Chest Chest: normal inspection of the chest Resp Effort & Inspection: normal respiratory effort Cardio Rate: tachycardic GI Inspection: normal to inspection Palpation: soft and tender Skin General skin exam: no rashes or lesions noted Neuro General: patient alert, patient awake and patient oriented x3 Extrem General: normal to inspection and full ROM Psych Affect: blunted Attitude: cooperative Course Vital Signs Vital signs: Vital Signs Temperature 37.5 C 09/18/23 18:26 Pulse 119 09/18/23 18:26 Respiratory Rate 18 09/18/23 18:26 Blood Pressure 125/92 09/18/23 18:26 Pulse Oximetry 98 09/18/23 18:26 Temperature 37.5 C 09/18/23 18:26 Temperature Source Skin 09/18/23 18:26 Pulse 119 09/18/23 18:26 Respiratory Rate 18 09/18/23 18:26 Respiratory Effort Normal 09/18/23 18:29 Blood Pressure 125/92 09/18/23 18:26 Blood Pressure Position Sitting 09/18/23 18:26 Pulse Oximetry 98 09/18/23 18:26 Oxygen Delivery Method Room Air 09/18/23 18:26 Oxygen Flow Rate 0 09/18/23 18:26 Medical Decision Making Presents with a 1 day history of nausea vomiting and lower abdominal discomfort will start with IV fluids Zofran check urine urine and reassess. Symptoms not consistent with renal colic, physical exam not concerning for an acute intra-abdominal emergency such as appendicitis, diverticulitis, perforation, pancreatitis, peptic ulcer disease. Symptoms are most consistent with either a gastroenteritis or cannabinoid hyperemesis. No lab or imaging recommended at this time. Hemodynamically she is stable physical exam is reassuring. Patient reports improvement in her symptoms after receiving 1 L of normal saline and 4 mg of ondansetron. She is tolerating clear liquids and stable for discharged home. Will dispense 3 tabs of 4 mg ondansetron for home use if needed for nausea and vomiting she was advised to return sooner for new or worsening symptoms Medical Records Medical records reviewed: Yes I reviewed the patient's medical records. Lab Data Lab results reviewed: Yes I reviewed the patient's lab results. Lab results narrative: Negative urine and negative UA for pyuria or blood Labs: Laboratory Results - last 24 hr 09/18/23 18:43 Urine Color Yellow Urine Clarity Clear Urine pH 7.0 Ur Specific [place] 1.015 Urine Protein Negative Urine Ketones Negative Urine Blood Negative Urine Nitrite Negative Urine Bilirubin Negative Urine Urobilinogen 0.2 Ur Leukocyte Esterase Negative Urine Glucose Negative Quality:SDOH Health Related Social Needs: No Data to Display PFSH All Active Problems (Updated 09/18/23 @ 19:46 by Sheila Marques NP) Nausea & vomiting (Acute) Korey-Danlos syndrome (Acute) OCD (obsessive compulsive disorder) (Acute) Major depression (Chronic) PTSD (post-traumatic stress disorder) (Acute) Social History Smoking/Tobacco Use Status: Never Smoking risk assessment performed?: Yes Drug use: Occasionally Substance use type: marijuana Do you feel safe at home: Yes Female Reproductive History Menstrual control method: implanted
[2023-09-18 18:51] LABS: Bilirubin Negative; Blood Negative; Clarity Clear; Glucose Negative; Ketones Negative; Leukocyte Esterase Negative; Nitrite Negative; Specific Gravity 1.015; Urobilinogen 0.2 mg/dL
[2023-09-18 19:08] VITALS: BP 125/92; PULSE 119; RESP 18; TEMP 37.5; O2SAT 98
[2023-09-18] MEDS: Ondansetron 4 MG/2 ML VIAL IVP (19:08)
[2023-09-18] MEDS: Normal Saline 1,000 ML 1000 ML IV (19:08)
[2023-09-18] MEDS: Ondansetron O.D.T. 4 MG TABEF, 3 TABS/BTL PO (19:59)
[2023-09-18 20:00] VITALS: BP 120/81; PULSE 96; RESP 16; TEMP 37.3; O2SAT 98
== END 2023-09-18 20:00 | disposition home or self-care (01) ==
PROVIDERS: Emergency Provider Nurse Practitioner Acute Care; PCP Family Medicine
DX: R11.2 Nausea with vomiting, unspecified (principal); R10.30 Lower abdominal pain, unspecified
CPT/HCPCS: 81025; 96361; 96374; 99284; 81003; 99283; J2405

== ENCOUNTER 2023-10-02 20:34 | Emergency (ER) | payer MEDICAID, SELFPAY ==
[2023-10-02 20:38] VITALS: BP 146/94; PULSE 123; RESP 22; TEMP 37.6; O2SAT 98
--- NOTE | 2023-10-02 20:50 | ED.GENADUL_ITS ---
Discharge Plan Discharge Details Chief Complaint: PsychEval Clinical Impression: Major depression Primary Care Provider: Ally Bradford ED Provider: Vishnu Hale Home Meds and New Rx's Prescriptions: No Action hydroxyzine HCl 25 mg tablet 50 mg PO QHS Qty: 2 0RF mirtazapine 15 mg tablet 30 mg PO DAILY Qty: 2 0RF guanfacine 1 mg tablet 1 mg PO BID meloxicam 15 mg tablet 15 mg PO DAILY docusate sodium 100 mg capsule 100 mg PO BID naltrexone 50 mg tablet 50 mg PO DAILY gabapentin 300 mg capsule 300 mg PO TID methocarbamol 500 mg tablet 500 mg PO QHS HPI General Mode of arrival: ambulatory . Date/Time Provider Initiated Documentation: 10/02/23 20:35 . Limitations to Documentation: no limitations . Information obtained by: patient . History of Present Illness 23 year old U presents to the emergency department with the chief complaint of thoughts of self harm, described as moderate, Patient started experiencing this week(s) (1) and it has been constant. No relieving factors improve symptom(s), No exacerbating factors reported . Patient notes no other symptoms.. Related Data Home Medications Medication Instructions Recorded Confirmed docusate sodium 100 mg capsule 100 mg PO BID 06/03/23 10/02/23 guanfacine 1 mg tablet 1 mg PO BID 06/03/23 10/02/23 meloxicam 15 mg tablet 15 mg PO DAILY 06/03/23 10/02/23 naltrexone 50 mg tablet 50 mg PO DAILY 06/03/23 10/02/23 gabapentin 300 mg capsule 300 mg PO TID 08/12/23 10/02/23 hydroxyzine HCl 25 mg tablet 50 mg (2 x 25 mg) PO QHS #2 tabs 09/21/23 10/02/23 mirtazapine 15 mg tablet 30 mg (2 x 15 mg) PO DAILY #2 tabs 09/21/23 10/02/23 methocarbamol 500 mg tablet 500 mg PO QHS 10/02/23 10/02/23 Previous Rx's Medication Instructions Recorded hydroxyzine HCl 25 mg tablet 50 mg (2 x 25 mg) PO QHS #2 tabs 09/21/23 mirtazapine 15 mg tablet 30 mg (2 x 15 mg) PO DAILY #2 tabs 09/21/23 Allergies Allergy/AdvReac Type Severity Reaction Status Date / Time No Known Allergies Allergy Unverified 10/02/23 20:53 General Stated Complaint: PsychEval CIERA: 2 Review of Systems All systems reviewed & are unremarkable except as noted in HPI and below Constitutional Constitutional: Denies chills, Denies fever(s) and Denies weakness Cardiovascular Cardiovascular: Denies chest pain and Denies dyspnea Respiratory Respiratory: Denies cough and Denies dyspnea Gastrointestinal Gastrointestinal: Denies abdominal pain, Denies nausea and Denies vomiting Genitourinary Genitourinary: Denies dysuria Genitourinary: Denies dysuria Integumentary/Breasts Skin/Breast: Denies rash Neurologic Neurologic: Denies weakness Psychiatric Psychiatric: Reports depression Endocrine Endocrine: Denies cold intolerance and Denies heat intolerance Exam Const General: no acute distress Orientation: alert HENMT Head: normal to inspection Ears: external ears normal General nose exam: external nose normal Mouth: moist mucous membranes Eyes General: appearance normal, both eyes and all related structures Neck Neck: normal visual inspection Resp Effort & Inspection: normal respiratory effort and able to speak in complete sentences Cardio Rate: regular rate Skin General skin exam: no rashes or lesions noted Neuro General: patient alert and patient oriented x3 Extrem General: normal to inspection Psych Appearance: well kempt Speech and Movement: speech and movement normal Course Vital Signs Vital signs: Vital Signs Temperature 37.6 C 10/02/23 20:38 Pulse 123 10/02/23 20:38 Respiratory Rate 22 10/02/23 20:38 Blood Pressure 146/94 10/02/23 20:38 Pulse Oximetry 98 10/02/23 20:38 Temperature 37.6 C 10/02/23 20:38 Temperature Source Temporal Artery Scan 10/02/23 20:38 Pulse 123 10/02/23 20:38 Respiratory Rate 22 10/02/23 20:38 Respiratory Effort Normal, Non-Labored 10/02/23 20:40 Blood Pressure 146/94 10/02/23 20:38 Blood Pressure Position Sitting 10/02/23 20:38 Pulse Oximetry 98 10/02/23 20:38 Oxygen Delivery Method Room Air 10/02/23 20:38 Oxygen Flow Rate 0 10/02/23 20:38 Pain Level 0 10/02/23 20:38 Medical Decision Making 23-year-old female with a history of OCD and depression, comes in with complaints of increased thoughts of self-harm over the past week. Denies acting on her thoughts, has states that she would plan on overdosing on her meds if she did. She is alert and oriented on arrival with a normal gait, normal speech, has a flat affect. No focal deficits. She is medically cleared to see mental health. Will have mental health evaluate and obtain screening labs. Given her reassuring exam and consistent with her chronic depression do not feel an u nderlying medical process is the cause of her symptoms. Labs unremarkable, patient stable. Seen by NK chest and will be seeking voluntary placement for depression and SI. Differential Diagnosis Differential Diagnosis: Depression, SI Medical Records Medical records reviewed: Yes I reviewed the patient's medical records. Lab Data Lab results reviewed: Yes I reviewed the patient's lab results. Quality:SDOH Health Related Social Needs: No Data to Display PFSH All Active Problems (Updated 10/02/23 @ 22:44 by Vishnu Hale MD) Nausea & vomiting (Acute) Korey-Danlos syndrome (Acute) OCD (obsessive compulsive disorder) (Acute) Major depression (Chronic) PTSD (post-traumatic stress disorder) (Acute) Social History Smoking/Tobacco Use Status: Never Smoking risk assessment performed?: Yes Alcohol Intake: never Drug use: Occasionally Substance use type: marijuana Housing: house Do you feel safe at home: Yes Do you feel safe in your relationship?: Yes Additional Social history: unable to assess alone Female Reproductive History Menstrual control method: implanted
[2023-10-02 20:57] LABS: Bilirubin Negative; Blood Negative; Clarity Clear; Glucose Negative; Ketones Negative; Leukocyte Esterase Negative; Nitrite Negative; Specific Gravity 1.015; Urobilinogen 0.2 mg/dL
[2023-10-02 21:10] LABS: *AMPHETAMINES SCREEN URINE Negative (Negative); *BARBITURATES SCREEN URINE Negative (Negative); *BENZODIAZEPINES SCREEN URINE Negative (Negative); Cannabinoids THC Positive (Negative); Cocaine Screen,Urine Negative (Negative); METHADONE URINE SCREEN Negative (Negtative); OPIATES URINE SCREEN Negative (Negative); Tricyclic Antidepressants Negative (Negtive)
[2023-10-02 21:15] LABS: Abs Immature Grans 0.02 10^3/uL; Absolute Basophil Count 0.03 10^3/uL; Absolute Eosinophil Count 0.01 10^3/uL; Absolute Lymphocyte Count 1.04 10^3/uL; Absolute Monocyte Count 0.33 10^3/uL; Absolute Neutrophil Count 7.24 10^3/uL; Basophils % 0.3 %; Eosinophils % 0.1 %; HCT 42.8 %; HGB 14.6 g/dL; Immature Grans % 0.2 %; MCH 30.7 pg; MCHC 34.1 %; MCV 90 fL; MPV 10.6 fL; Monocytes % 3.8 %; Neutrophils % 83.6 %; Platelet Count 271 10^3/uL; RBC 4.76 10^6/uL; RDW 12.8 %; RDW-SD 42.3 fL; WBC 8.67 10^3/uL
[2023-10-02 21:36] LABS: Salicylate < 2.8 mg/dL
[2023-10-02 21:37] LABS: Acetaminophen < 2 ug/mL
[2023-10-02 21:51] LABS: ALT 20 U/L; AST 10 U/L; Albumin 4.1 g/dL; Alkaline Phosphatase 90 U/L; BUN 7 mg/dL; Bilirubin, Total 0.4 mg/dL; CREATININE 0.9 mg/dL; Calcium 9.1 mg/dL; Chloride 104 mmol/L; Glucose 113 mg/dL; Potassium 3.5 mmol/L; Sodium 141 mmol/L; TSH (W/Ref FT4) 4.87 uIU/mL (0.36-3.74); Total Protein 7.5 g/dL
[2023-10-02 22:13] LABS: ETHANOL BLOOD < 3.0 mg/dL; FREE T4 0.84 ng/dL
[2023-10-02] MEDS: Docusate Sodium 100 MG/10 ML CUP PO (23:11)
[2023-10-02] MEDS: Gabapentin 300 MG CAP PO (23:11)
[2023-10-02] MEDS: hydrOXYzine HCL 25 MG TAB 50 MG PO (23:13)
[2023-10-02] MEDS: Methocarbamol 500 MG TAB PO (23:14)
[2023-10-02] MEDS: Mirtazapine 15 MG TAB 30 MG PO (23:14)
[2023-10-02] MEDS: guanFACINE 1 MG TAB PO (23:17)
[2023-10-02] MEDS: Ondansetron O.D.T. 4 MG TABEF (23:50)
--- NOTE | 2023-10-03 00:48 | PDOC.MHCN_ITS ---
Date of service: 10/02/23 Time of Service: 09:50 PHQ-9 Over the last 2 weeks, how often have you been bothered by any of the following problems? 1. Little interest or pleasure in doing things: nearly every day 2. Feeling down, depressed, or hopeless: nearly every day 3. Trouble falling or staying asleep, or sleeping too much: nearly every day 4. Feeling tired or having little energy: more than half the days 5. Poor appetite or overeating: several days 6. Feeling bad about yourself - or that you are a failure or have let yourself and your family down: nearly every day 7. Trouble concentrating on things, such as reading the newspaper or watching television: several days 8. Moving or speaking so slowly that other people could have noticed? - Or the opposite - being so fidgety or restless that you have been moving around a lot more than usual: not at all 9. Thoughts that you would be better off or of hurting yourself in some way: nearly every day Total score: 19 Source: Developed by Drs. Mic Pedro, Yoli Santana, Levar James and colleagues, with an educational emre from [employer]. Suicide Severity Rate CSSRS Have you wished you were or wished you could go to sleep and not wake up?: Yes Have you actually had any thoughts of killing yourself?: Yes CSSRS2 Have you been thinking about how you might do this?: Yes Have you had these thoughts and had some intention of acting on them?: Yes Have you started to work out or worked out the details of how to kill yourself? Do you intend to carry out this plan?: Yes CSSRS3 Have you ever done anything, started to do anything or prepared to do anything to end your life?: Yes Screening Score Total Score: 6 Screening: Positive Mental Health Emergency Note Release [facility] release signed:: Yes Reason for Visit extreme SI In the last 2 weeks has the pt presented for ES prior to today?: No Client Information Client is: Adult Outpatient Well Housed: Yes Non Suicidal Self Injury Current: Yes, none History: yes, medication Safety Risk/Harm to Self or Others Current Ideation to Harm Self or Others: Yes to self. Intent: yes, has intent. Plan: yes,has a plan. Risk: Does risk to harm exist?: yes. Risk: High Risk Duty to warn indicated: No Asssessment/Mental Status Appearance: Other Attitude: Cooperative Behavior: Unremarkable Speech: Soft Affect: Cogruent with mood Mood: Sad and Depressed Thought process: Goal directed Hallucinations: No Delusions: No Attention: Unremarkable Perception: Not impaired Orientation: Fully orientated Memory: Intact Insight: Fair Judgement: Fair Neurovegetative Symptoms Sleep: Increase Appetitie: Disordered Interests: Decrease Energy: Decrease Libido: Not applicable Substance Use: Other Drug Issues: Other Do you use nicotine?: No Have you used substances in the last 7 days?: yes, all of it Additional Issues: Assaultive/Threatening Behavior: No Medical Concerns: Yes Client engaged in active self harm w/weapon: No Threatening to run away: No Child reported abuse/neglect: No Voluntarily presenting for services: Yes Domestic violence is a concern: No Extreme Psychosis or extreme behavior is present: No Impression Patient desires to go inpatient due to her extreeme depression and SI intent [facility] and [facility]88 Plan/Disposition Recommended Disposition: Hospitalization facilities contacted. Plan: Patient will wait on Zone B until an inpatient treatment facility bed has an opening Facilities contacted if Applicable [facility] Accepted, Pending review. Information Sent to [place]: Referral [facility] Accepted, Pending review. Information Sent to [facility]: Referral [facility] Accepted, Pending review. Information Sent to [place]: Referral, [facility] Accepted, Pending review. Information Sent to [place]: Referral Reports/communication Outcome discussed with: ED/Personnel
[2023-10-03] MEDS: Docusate Sodium 100 MG CAP PO (08:18)
[2023-10-03] MEDS: guanFACINE 1 MG TAB PO (08:19)
[2023-10-03] MEDS: Meloxicam 15 MG TAB PO (08:19)
[2023-10-03 08:20] VITALS: BP 119/83; PULSE 86; RESP 16; TEMP 36.7; O2SAT 96
[2023-10-03] MEDS: Naltrexone 50 MG TAB PO (08:20)
[2023-10-03] MEDS: Gabapentin 300 MG CAP PO ×2 (08:25→14:08)
[2023-10-03] MEDS: DULoxetine 20 MG CAP 40 MG PO (08:57)
--- NOTE | 2023-10-03 13:30 | CMSP_ITS ---
Date of service: 10/03/23 Time of Service: 11:30 Care Management Safety Plan Status Status: Voluntary Safety Plan Safety Plan: VOLUNTARY FOR INPATIENT PSYCHIATRIC STABILIZATION.? Faaidra is appropriate in all interactions since arriving at [facility]; Pt has demonstrated appropriate coping and communication skills, has articulated their needs and concerns and is fully engaged during staff interactions. Safety plan has been established with patient, and care team, to adhere to patient goals, identify restrictions based on behavioral status, address nutrition, and determine allowed personal belongings, tools for hygiene and personal care. Determine level of activity including ambulation, level of supervision, visitors, and determine privileges based on behaviors and level of engagement by pt. VOLUNTARY SAFETY PLAN: 1. Will remain on suicide precautions, in paper clothes 2. Will remain in Zone B under direct supervision of one-on-one staff at all times provided by [employer]; [employer], [employer]ESTRY AND WILDLIFE MANAGER incinerator operator. 3. May have paper cups, plates, finger foods as well as a cardboard spoon with which to eat meals. 4. Follow [facility] Management of the Admitted Behavioral Health Patient policy. 5. Shower available in Zone B without restriction. 6. Personal belongings-soft items permitted at RN discretion. 7. Visitors-none at this time. 8. Activities: soft cart items approved per RN discretion. 9.? Bathroom available in Zone B without restriction. 10. Phone: limited to [facility] cordless phone at RN discretion. Due to VOLUNTARY status, if patient wishes to leave [facility], staff will contact [facility] Crisis Screener ([phone]) and Diaper Folder ([phone]) as soon as possible. In the event of elopement, notify [facility] Police ([phone]).
--- NOTE | 2023-10-03 14:41 | PDOC.MHPN2 ---
Date of service: 10/03/23 Time of Service: 14:42 Mental Health Emergency Note Release [facility] release signed:: Yes Reason for Visit The client is known to [facility] and has being followed for therapy and psychiatry. They have missed 2 appointments since the end of August. The client reported having several hospitalizations and their last was in May of this year, voluntarily. They were last seen earlier today by [facility] and are seeking a voluntary placement due to SI that has lasted about two weeks. This assessment is completed face to face at bedside. In the last 2 weeks has the pt presented for ES prior to today?: Unknown Impression The client reported a previous history of attempts and, this was discussed in their initial assessment. The client completed all screening tools during their earlier assessment. They are seeking a voluntary inpatient referral for treatment. The client is a 23 year old, single, born female who uses They/They pronouns. The client's current employment is unknown and they are living with their mother following a traumatic break up around 2022. All of the client's underrepresented categories were honored during this assessment. The client sits on their bed watching TV. They allow for the TV to be muted while we talk. They reported continued SI self-reporting their risk a 10/10. They denied HI. The reported history of NSSI and last engagement was 6 months ago. The client reported that they have been informally diagnosed with Autism while in treatments however, has never gotten a formal diagnosis. They would like a referral to be tested and see if this is the diagnosis they have. The client is cooperative, engaged and makes good eye contact. They ask about how long before they are accepted into treatment and share their past history in [place] as being never on a weekend. The client has had a decrease in sleep and appetite. Plan/Disposition Recommended Disposition: Hospitalization facilities contacted. Plan: The client was accepted to [facility] and will be transported once transport is found. Hospital notification completed. Person reported agreement to plan: Yes Reports/communication Outcome discussed with: ED/Personnel
--- NOTE | 2023-10-03 14:54 | CMPROGNOTE_ITS ---
Date of service: 10/03/23 Time of Service: 14:54 Care Management Progress Note Progress Note Text Progress Note Text: Izabel has been accepted for voluntary inpatient treatment at [facility]. She will be transported by [facility]. SDOH(Care Management) Screening Will the Patient Participate in the Screening?: Yes Do you worry about having a steady place to live?: no In the past 12 months, have you had to go without electric, gas, oil or water in your home?: no Have you or anyone in your house had to go without enough food to eat?: no Has lack of transportation kept you from medical appointments or from doing things needed for daily living?: no Has anyone in your support network made you feel unsafe for any reason?: no
--- NOTE | 2023-10-03 15:27 | W.EDPROG ---
Date of service: 10/03/23 Time of Service: 15:27 Medical Decision Making Care was signed out by Dr. San, please see his documentation on initial ED presentation course. Plan at signout was to await for voluntary inpatient psychiatric treatment placement. Patient was restarted on their Cymbalta as prescribed outpatient. Patient has been accepted by [facility], Dr. Moreau. Dr. Ortiz was offered and declined. Quality:[facility] Health Related Social Needs: No Data to Display Sign Out Sign Out Data: Sign Out Comment: Patient with a history of depression has had increased thoughts of self-harm the past week. Will be seeking voluntary placement for this. Home meds ordered. Last updated by Vishnu Hale MD at 10/02/23 22:44 Sign Out Comment: Depression with suicidality. Patient stable throughout the night. No interventions needed. Colace transition to pill form instead of liquid. Last updated by Cooper San DO at 10/03/23 07:47 Discharge Plan Disposition Patient Disposition: Psychiatric Hospital/Unit Specific Acute Inpt Facility: Other Specific Psychiatric Facility: [facility] Medical[facility]Psych[facility] Condition: Serious Discharge Details Chief Complaint: PsychEval Clinical Impression: Major depression, Suicidal ideations Primary Care Provider: Ally Bradford ED Provider: Remi Hansen Home Meds and New Rx's Prescriptions: No Action hydroxyzine HCl 25 mg tablet 50 mg PO QHS Qty: 2 0RF mirtazapine 15 mg tablet 30 mg PO DAILY Qty: 2 0RF guanfacine 1 mg tablet 1 mg PO BID meloxicam 15 mg tablet 15 mg PO DAILY docusate sodium 100 mg capsule 100 mg PO BID naltrexone 50 mg tablet 50 mg PO DAILY gabapentin 300 mg capsule 300 mg PO TID methocarbamol 500 mg tablet 500 mg PO QHS duloxetine 40 mg capsule,delayed release(DR/EC) 40 mg PO DAILY
== END 2023-10-03 16:52 ==
PROVIDERS: Emergency Medicine; Emergency Provider Student in an Organized Health Care Education/Training Program; PCP Family Medicine
DX: R45.851 Suicidal ideations (principal); F32.9 Major depressive disorder, single episode, unspecified
CPT/HCPCS: 00123; 80053; 80307; 81025; 96127; 99285; 80320; 80329; 81003; 84439; 84443; 85025

== ENCOUNTER 2023-10-23 15:15 | Outpatient (REF) | payer MEDICAID, SELFPAY ==
[2023-10-23 21:47] LABS: TSH (W/Ref FT4) 1.89 uIU/mL (0.36-3.74)
== END 2023-10-23 15:16 | disposition home or self-care (01) ==
LOC: NCHCN 15:15
PROVIDERS: PCP Family Medicine; Visit Provider Family Medicine
DX: N92.5 Other specified irregular menstruation (principal)
CPT/HCPCS: 84443

== ENCOUNTER 2023-12-17 14:52 | Outpatient (REF) | payer MEDICAID, SELFPAY ==
--- OUTSIDE RECORDS SUMMARY | 2023-12-17 14:54 | XMS_ITS | Encounter Summary ---
Author Organization [facility] Address [facility] [place] [address] Care Team Providers Care Purchasing Assistant Name Role Phone Unavailable Primary Care Provider Unavailabl e Reason for Referral * Consultation (Routine) - Closed Specialty Diagnoses / Procedures Referred By Bobby roche Referred To Contact Urology Diagnoses Pelvic and perineal pain Home Health Occupational Therapist Ally Bradford MD [address] [place] [address] [facility] [employer] [place] [address] [place] [address] Referral ID Status Reason Start Date Expiration Date V isits Requested Visits Authorized [id number] Closed Consult, Test & Treat PCP Updated and/or Approved 04/11/2023 04/10/2024 6 6 Encounter Details Date Type Department Care Team (Latest Contact Info) Description 04/11/2023 Transcribe Orders eDH Incoming Referrals [phone] Ally Bradford MD [address] [place], [place] [id number] Pelvic pain syndrome Social History Tobacco Use Types Packs/Day Years Used Date Smoking Tobacco: Never Assessed Sex and Gender Information Value Date Recorded Sex Assigned at Not on file Gender Identity Not on file Sexual Orientation Not on file documented as of this encounter Plan of Treatment Upcoming Encounters Date Type Department Care Team (Late st Contact Info) Description 02/05/2024 2:30 PM EDT Scheduled View Only Obstetrics [place] [address] Nurse, Obgyn II, RN 02/05/2024 3:00 PM EDT Office Visit Obstetrics [place] [phone] Jeane Quiñonez MD [facility] [place] [address] Scheduled Referrals Name Type Priority Associated Diagnoses Order Schedule Referral to Urogynecology Outpatient Referral Routine Pelvic pain syndrome Ordered: 04/11/2023 documented as of this encounter Visit Diagnoses Diagnosis Pelvic pain syndrome Pelvic congestion syndrome documented in this encounter
--- OUTSIDE RECORDS SUMMARY | 2023-12-17 14:54 | XMS_ITS | Encounter Summary ---
Author Organization [facility] Address [facility] [place] [place] [address] Care Team Providers Care Wine Sales Representative Name Role Phone Ally Bradford MD Primary Care Provider [phone] Reason for Visit * Reason Comments Follow-up Pessary Fitting Encounter Details Date Type Department Care Team (Late st Contact Info) Description 12/01/2023 3:40 PM EDT Office Visit Obstetrics [place] [phone] Kymberly Zavala MANAGER BUSINESS BANKING [facility] [place] [address] Encounter for fitting and adjustment of pessary Social History Tobacco Use Types Packs/Day Years Used Date Smoking Tobacco: Never Smokeless Tobacco: Never Sex and Gender Information Value Date Recorded Sex Assigned at Not on file Gender Identity Not on file Sexual Orientation Not on file documented as of this encounter Last Filed Vital Signs Vital Sign Reading Time Taken Comments Blood Pressure 112/74 12/01/2023 3:03 PM EDT Pulse 78 12/01/2023 3:03 PM EDT Temperature 36.6 ??C (97.8 ??F) 12/01/2023 3:03 PM ED T Respiratory Rate - - Oxygen Saturation 98% 12/01/2023 3:03 PM EDT Inhaled Oxygen Concentration - - Weight - - Height - - Body Mass Index - - documented in this encounter Progress Notes * Kymberly Zavala APRN - 12/01/2023 3:40 PM EDT Female Pelvic Medicine and Reconstructive Surgery Initial Pessary Fitting There is no problem list on file for this patient. SUBJECTIVE: Ms. Madrigal presents today for an initial pessary fitting. She was previously diagnosed with: Uterovaginal prolapse, primarily anterior wall Chronic pelvic pain interstitial cystitis/bladder pain syndrome (IC/BPS) Overactive bladder Chronic constipation Hypertonic pelvic floor OBJECTIVE: BP 112/74 Pulse 78 Temp 36.6 ??C (97.8 ??F) (Temporal) SpO2 98% A radio dispatcher is present for the examination. General: Appears healthy, well developed and well nourished. No apparent distress. Urethra: Nontender, midline, no lesions. Vulva: Well developed and appropriate architecture present. No lesions or abnormal discharge. A # 3 Ring with support pessary was placed without difficulty and the patient reported no discomfort with the pessary in situ. . The patient was instructed to ambulate for several minutes and to try void without expelling the pessary. POP Q Measurements 08/2023 with Farhana Graham APRN: Aa -1 Ba -1 C -4 GH 3 PB 3 TVL 8 Ap -3 Bp -3 D -5 ASSESSMENT: Anterior vaginal wall prolapse & OAB: fit for #3 RS, able to remove & replace on her own PLAN: Use pessary as instructed for symptoms RTC in 1-2 months for assessment of pessary fit or sooner prn. Kymberly aZvala APRN Division of Female Pelvic Medicine and Reconstructive Surgery * Susy Buckner LNA - 12/01/2023 3:40 PM EDT Examination chaperoned by PRITESH Salgado. documented in this encounter Plan of Treatment Upcoming Encounters Date Type Department Care Team (Late st Contact Info) Description 02/05/2024 2:30 PM EDT Scheduled View Only Obstetrics [place] [address] Nurse, Grecia MCLAUGHLIN RN 02/05/2024 3:00 PM EDT Office Visit Obstetrics [place] [address] Jeane Quiñonez MD [facility] [place] [address] documented as of this encounter Visit Diagnoses Diagnosis Encounter for fitting and adjustment of pessary Fitting and adjustment of other device documented in this encounter Care Teams Wine Sales Representative Relationship Specialty Start Date End Date Ally Bradford MD [address] [place] [address] PCP - General Family Medicine 09/01/23 documented as of this encounter
--- OUTSIDE RECORDS SUMMARY | 2023-12-17 14:54 | XMS_ITS | Encounter Summary ---
Author Organization [facility] [place] [place] [address] Care Team Providers Care It Operations Manager Name Role Phone Unavailable Primary Care Provider Unavailabl e Encounter Details Date Type Department Care Team (Late st Contact Info) Description 06/12/2023 Telephone Obstetrics [place] [phone] Janee Hoang Social History Tobacco Use Types Packs/Day Years Used Date Smoking Tobacco: Never Assessed Sex and Gender Information Value Date Recorded Sex Assigned at Not on file Gender Identity Not on file Sexual Orientation Not on file documented as of this encounter Miscellaneous Notes * Telephone Encounter - Janee Hoang - 06/12/2023 11:21 AM EST Left message to schedule appointment from urogyn referral. documented in this encounter Plan of Treatment Upcoming Encounters Date Type Department Care Team (Late st Contact Info) Description 02/05/2024 2:30 PM EDT Scheduled View Only Obstetrics [place] [address] Nurse, Grecia MCLAUGHLIN, RN 02/05/2024 3:00 PM EDT Office Visit Obstetrics [place] [address] Jeane Quiñonez MD [facility] [place] [address] documented as of this encounter Visit Diagnoses Not on filedocumented in this encounter
--- OUTSIDE RECORDS SUMMARY | 2023-12-17 14:54 | XMS_ITS | Clinical Summary ---
Author Organization [facility] Address [facility] [place] [address] [place] [address] Care Team Providers Care Tax Technician Name Role Phone Ally Bradford MD Primary Care Provider [phone] Allergies No known active allergies Medications Medication Sig Dispensed Refills Start Date End Date Status methocarbamoL (Robaxin) 500 mg tablet Take 500 mg by mouth nightly. Active meloxicam (Mobic) 15 mg tablet Take 15 mg by mouth daily. Active DULoxetine DR (Cymbalta) [address] capsule Take 40 mg by mouth daily. Active mirtazapine (Remeron) 30 mg tablet Take 30 mg by mouth nightly. Active gabapentin (Neurontin) 300 mg capsule Take 600 mg by mouth 3 times daily. Active docusate sodium (Colace) 100 mg capsule Take 100 mg by mouth 2 times daily. Active guanFACINE (Tenex) 1 mg tablet Take 1 tablet by mouth 2 times daily. Active etonogestreL (Nexplanon) 68 mg Implant by Subdermal route Continuous (Device). Active hydrOXYzine (Atarax) 25 mg tablet Take 50 mg by mouth nightly. 09/21/2023 Active naltrexone (Depade) 50 mg tablet Take 50 mg by mouth daily. Active Active Problems No known active problems Encounters Date Type Department Care Team Description 12/01/2023 3:40 PM EDT Office Visit [facility]st[facility] at [facility]note [facility] [phone] Kymberly Zavala, MEDICAL PATHOLOGY TEACHER Encounter for fitting and adjustment of pessary 12/01/2023 Travel from Last 3 Months Social History Tobacco Use Types Packs/Day Years Used Date Smoking Tobacco: Never Smokeless Tobacco: Never Tobacco Cessation:Counseling Given: Not Answered Sex and Gender Information Value Date Recorded Sex Assigned at Not on file Gender Identity Not on file Sexual Orientation Not on file Last Filed Vital Signs Vital Sign Reading Time Taken Comments Blood Pressure 112/74 12/01/2023 3:03 PM EDT Pulse 78 12/01/2023 3:03 PM EDT Temperature 36.6 ??C (97.8 ??F) 12/01/2023 3:03 PM ED T Respiratory Rate - - Oxygen Saturation 98% 12/01/2023 3:03 PM EDT Inhaled Oxygen Concentration - - Weight 72.3 kg (159 lb 8 oz) 09/01/2023 8:03 AM EDT Height 172.7 cm (5' 8) 09/01/2023 8:03 AM EDT Body Mass Index 24.25 09/01/2023 8:03 AM EDT Plan of Treatment Upcoming Encounters Date Type Department Care Team (Late st Contact Info) Description 02/05/2024 2:30 PM EDT Scheduled View Only Obstetrics [place] [address] Nurse, Grecia MCLAUGHLIN RN 02/05/2024 3:00 PM EDT Office Visit Obstetrics [place] [address] Jeane Quiñonez MD [facility] [place] [address] Health Maintenance Due Date Last Done Comments Chlamydia Screening 07/20/2014 HPV vaccine (1 - 3-dose series) 07/20/2014 HIV screen 07/20/2017 Hepatitis C Screening 07/20/2017 Hepatitis B vaccine (0-59 yrs) (1) 07/20/2018 Tdap adult 07/20/2018 Tetanus vaccine 07/20/2018 PAP Smear 07/20/2020 Influenza (Flu) vaccine (1 o f 1 - Influenza standard series) 12/27/2023 Covid-19 Vaccine Completed 02/26/2023 Care Teams Tax Technician Relationship Specialty Start Date End Date Ally Bradford MD [address] [place] [address] PCP - General Family Medicine 09/01/23
--- OUTSIDE RECORDS SUMMARY | 2023-12-17 14:54 | XMS_ITS | Continuity of Care Document ---
Author Organization [facility] Address [address] [place] [address] Care Team Providers Care Modeling Analyst Name Role Phone ALLY BRADFORD Primary Care Provider [phone] [facility] OTHER [facility] Psychiatrist ELDA LANG Community Health Worker [phone] Assessment No assessment recorded. Plan of Treatment Reminders Order Date Submit Date Provider Last Modified By Organization Details Last Modified Time Details Appointments Office Visit 2023 08:30A M Not available Not available Not available Chronic Care Coordinat or 60 2023 01:00P M Not available Not available Not available Office Visit 2023 10:20A M Not available Not available Not available Chronic Care Coordinat or 60 2024 01:00P M Not available Not available Not available Lab TSH, serum, reflex free T4 2023 024 [facility] (Registration ), [address] [place] [address], [address], 10/27/2023 14:36:06 Referral None recorded. Procedures None recorded. Surgeries None recorded. Imaging None recorded. Medication Orders meloxicam 15 mg tablet 2023 024 [facility], [address] [facility], [place], [address], 10/23/2023 14:10:33 methocarb crystal 500 mg tablet 2023 024 [facility], [address] [place], [address], 10/23/2023 14:10:32 Patient TargetsNo targets recorded. Patient InstructionsNo instructions recorded. Reason for Referral Psychologist Referral for Au tism spectrum disorder would like to explore a possible diagnosis of autism Referring Physician: Ally Bradford, Family Medicine, Encounter Date: 04/02/2023 Balance Sheet Analyst Referral for Ch ronic pelvic pain of female Referring Physician: Ally Bradford Family Medicine, Encounter Date: 04/02/2023 Problems Name Status Onset Date Resolution Date Notes Provider Name and Address Organization Details Recorded Time Repeat prescription monitoring Active 12/11/19 23 Sheyla Zuleta null, [facility] 08/26/2023 15:25:41 Mixed anxiety and depressive disorder Active 03/26/20 23 WILBER TAVERAS RN null, [facility] 03/26/2023 08:00:59 Pain in lower limb Active 03/26/20 23 WILBER TAVERAS RN null, [facility] 03/26/2023 08:01:12 Dysmenorrhea Active 03/26/20 23 WILBER TAVERAS RN null, [facility] 03/26/2023 08:01:29 Posttraumatic stress disorder Active 04/02/20 23 ANDRA GRVAES, [facility]. 04/02/2023 09:33:12 Alcoholism Active 04/02/20 23 WILBER TAVERAS RN null, [facility]. 04/02/2023 09:33:27 Irritable bowel syndrome Active 04/02/20 23 ANDRA GRAVES, [facility]. 04/02/2023 09:33:41 Chronic interstitial cystitis Active 04/02/20 23 WILBER TAVERAS RN null, [facility] 04/02/2023 09:34:17 Autism spectrum disorder Active 04/02/[address], [facility] [address] , [facility] 04/05/2023 14:09:06 Chronic pelvic pain of female Active 04/02/20 ALLY BRADFORD MD [address], [place], [address] , [facility] 04/02/2023 14:22:52 Hypermobile Korey-Danlos syndrome Active 04/05/20 23 ALLY BRADFORD MD [address], [place], [address] , [facility] 04/05/2023 14:11:53 Orthostatic hypotension Active 04/05/[address], [place], [address] , [facility] 04/05/2023 14:31:02 Irritable bowel syndrome with diarrhea Active 02/06/20 Bernarda Susie null, [facility]. 07/26/2023 18:08:13 Slow transit constipation Active 02/06/20 Bernarda Susie null, [facility] 07/26/2023 18:08:26 Alcohol dependence Active 02/06/20 Bernarda Susie null, [facility] 07/26/2023 18:07:27 Recurrent major depression Active 02/06/20 Bernarda Susie null, [facility] 07/26/2023 18:08:21 Chronic pain Active 02/27/20 23 Bernarda Susie null, [facility] 07/26/2023 18:08:01 Muscle spasm of cervical muscle of neck Active 07/29/19 24 Sheyla Seibold null, [facility]. 08/26/2023 15:25:48 Hemorrhoids Active 07/29/19 24 Sheyla Seibold null, [facility]. 08/26/2023 15:25:46 Overactive urinary bladder Active 09/03/19 24 JONO SOTO MA null, [facility] 09/03/2023 09:48:23 Chronic constipation Active 09/03/19 24 JONO SOTO MA [facility], [facility] 09/03/2023 09:48:59 Pain in pelvis Active 09/11/[address], [facility] [address] , [facility] 09/11/2023 12:02:25 Irregular intermenstrual bleeding Active 10/23/[address], [facility] [address] , [facility] 10/23/2023 14:10:57 Congenital pes planus Active 10/23/[address], [facility] [address] , [facility] 10/23/2023 20:49:20 Fatigue Active 12/17/[address], [facility] [address] , [facility] 12/17/2023 08:49:46 Problem Notes None recorded. Procedures Surgical History Date Name Laterality Status Provider Name and Address Organization Details Recorded Time Date of Last Pap Smear completed WILBER TAVERAS RN [facility] 04/02/2023 13:26:31 extraction of wisdom tooth completed JONO SOTO MA [facility], [facility] 06/29/2023 08:18:51 Imaging Results None recorded. Procedure Notes None recorded. Medical Equipment None Reported. Allergies Allergen ID Allergen Name Allergen Category Reaction Reaction Severity Criticality Documentation Date Start Date Code Code System Note Provider Name and Address Organization Details Recorded Time 20120 droperido l medicatio n Not available Not available high 09/10/2023 6[address], [facility] [address], [facility] 14:53:29 Medications Name Sig Start Date Stop Date Status Note LastModified by Organization Details LastModified Time methocarba mol 500 mg tablet TAKE ONE TABLET BY MOUTH AT BEDTIME FOR MUSCLE PAIN active Not Available Not Available No t Available gabapentin 600 mg tablet Take 1 tablet 3 times a day by oral route. 12/16 completed Not Available Not Available Not Available trazodone 50 mg tablet TAKE 0.5 TABLETS (25 MG TOTAL) BY MOUTH AT NIGHT IF NEEDED FOR SLEEP FOR UP TO 21 DAYS. 04/02 completed Not Available Not Available Not Available meloxicam 15 mg tablet TAKE ONE TABLET BY MOUTH EVERY DAY active Not Available Not Available No t Available naltrexone 50 mg tablet TAKE ONE TABLET BY MOUTH EVERY MORNING active Not Available Not Available No t Available hydroxyzin e pamoate 50 mg capsule TAKE ONE CAPSULE BY MOUTH AT BEDTIME active Not Available Not Available No t Available hydroxyzin e HCl 50 mg tablet TAKE 1 TABLET (50 MG TOTAL) BY MOUTH EVERY 8 (EIGHT) HOURS IF NEEDED FOR ANXIETY FOR UP TO 10 DAYS. 04/02 completed Not Available Not Available Not Available meloxicam 7.5 mg tablet TAKE 1 TABLET (7.5 MG TOTAL) BY MOUTH 1 (ONE) TIME EACH DAY FOR 21 DAYS. 04/02 completed Not Available Not Available Not Available methocarba mol 750 mg tablet TAKE ONE TABLET BY MOUTH EVERY DAY AT BEDTIME FOR 10 DAYS, FOR MUSCLE PAIN 09/09 completed Not Available Not Available Not Available mirtazapin e 30 mg tablet TAKE ONE TABLET BY MOUTH AT BEDTIME active Not Available Not Available No t Available guanfacine 1 mg tablet TAKE ONE TABLET BY MOUTH TWICE A DAY active Not Available Not Available No t Available docusate sodium 100 mg capsule TAKE ONE CAPSULE BY MOUTH TWICE A DAY NEEDED active Not Available Not Available No t Available gabapentin 300 mg capsule TAKE TWO CAPSULES BY MOUTH THREE TIMES A DAY active Not Available Not Available No t Available hydroxyzin e HCl 25 mg tablet TAKE 2 TABLETS BY MOUTH AT BEDTIME 10/22 completed Not Available Not Available Not Available mirtazapin e 15 mg tablet TAKE 2 TABLETS BY MOUTH ONCE DAILY 10/22 completed Not Available Not Available Not Available guanfacine 2 mg tablet 1 tablet by mouth once a day 04/02 completed Not Available Not Available Not Available ondansetro n 4 mg disintegra ting tablet DISSOLVE ONE TABLET ON THE TONGUE EVERY 8 HOURS NEEDED FOR NAUSEA AND VOMITING active Not Available Not Available No t Available hydroxyzin e pamoate 25 mg capsule TAKE 2 CAPSULES BY MOUTH AT BEDTIME 09/09 completed Not Available Not Available Not Available duloxetine 20 mg capsule,de layed release TAKE 2 CAPSULES BY MOUTH EVERY DAY IN THE MORNING 04/02 completed Not Available Not Available Not Available duloxetine 30 mg capsule,de layed release Take 2 capsules every day by oral route at bedtime. 04/02 completed Not Available Not Available Not Available docusate sodium 1 capsule by mouth as directed as needed 04/02 completed Not Available Not Available Not Available aripiprazo le 2 mg tablet TAKE 1 TABLET (2 MG TOTAL) BY MOUTH 1 (ONE) TIME EACH DAY FOR 14 DAYS. 04/02 completed Not Available Not Available Not Available Nexplanon 68 mg subdermal implant Inject by subcutan eous route. active placed 3 Not Available Not Available Not Available duloxetine 40 mg capsule,de layed release TAKE ONE CAPSULE BY MOUTH EVERY DAY active Not Available Not Available No t Available Metamucil 3.4 gram/5.4 gram oral powder Take 3.4 g every day by oral route. 09/09 completed Not Available Not Available Not Available Vitals Date Recorded Body height Body mass index (BMI) Body weight Body temperature Oxygen saturation Oxygen saturation in Arterial blood by Pulse oximetry Systolic blood pressure Diastolic blood pressure Provider Name and Address Organization Details Last Updated DateTime 4 172.72 cm 23.7 kg/m2 10499.4 1 g 97 [degF] 97 % 97 % 116 mm[Hg] 78 mm[Hg] JONO SOTO MA [facility] 13:30:00 Social History Question Answer Notes LastModified by Organizat ion Details LastModified Time Tobacco Smoking Status Never Smoker Smokes marijuana . DEEDEE FALCON, [facility] 09/10/2023 14:18:58 Date Care Plan Printed: 07/29/2023 Information not available 07/29/2023 Assigned Lining Cutter: Evelyn ordaz Information not available 07/29/2023 Is [facility] The Lead Lining Cutter? Yes Information no t available 07/29/2023 Level Of Intensity: Quarterly Information not available 07/29/2023 Team Based Care: Yes Informat ion not available 07/29/2023 Social Barrier Yes Informatio n not available 07/29/2023 Learning Barrier Yes Informat ion not available 07/29/2023 Last Care Team Meeting 07/29/2023 Information not available 07/29/2023 Transportation Barrier Yes Information not available 07/29/2023 Community Statistics Teacher Yes Information not available 07/29/2023 Food Resources Yes Informatio n not available 07/29/2023 Housing Yes Information no t available 07/29/2023 Insurance Enrollment Yes Information not available 07/29/2023 Social Security/Disabilit y Yes Information not available 07/29/2023 Transportation Yes Informatio n not available 07/29/2023 Chronic Disease Management Yes Information not available 07/29/2023 Chronic Pain Management Yes Information not available 07/29/2023 Community Behavioral Services Yes Information not available 07/29/2023 Economic Services Yes Informa tion not available 07/29/2023 H[employer] Yes Information n ot available 07/29/2023 [employer] Yes Information no t available 07/29/2023 [facility] Yes Information no t available 07/29/2023 Designated Agency Yes Informa tion not available 07/29/2023 Providers Yes Information no t available 07/29/2023 What Was The Date Of Your Most Recent Tobacco Screening? 06/29/2023 [email or web address] Information not available 06/29/2023 Has Tobacco Cessation Counseling Been Provided? No Information not available 04/02/2023 Do You Or Have You Ever Used Any Other Forms Of Tobacco Or Nicotine? No Information not available 04/02/2023 Sex: Female Functional Status None recorded. Mental Status None recorded. Family History Relationship Description Onset Age of this Age Resolved Age Notes Father No current problems or disability Mother No current problems or disability Medical History No medical history recorded. Gynecological History Statement/Question Response Abnormal Pap N Date of LMP 04/02/2023 Sexually Active? Y Menses Monthly N STIs/STDs N Date of Last Pap Smear 04/27/2021 Sexual Problems? N Current Control Method Implant Age at Menarche 10 Obstetrics History GPAL:G 0 P 0 0 0 0 Immunizations Vaccine Type Date Status Provider Name and Address Organization Details Recorded Time Tdap 03/14/2018 completed Not Available [facility] 05:31:25 Influenza, split virus, quadrivalent, PF 02/26/2023 completed Not Available [facility] 05/08/2023 05:31:25 SARS-COV-2 (COVID-19) vaccine, UNSPECIFIED 12/06/2020 completed Not Available [facility] 05/08/2023 05:31:25 SARS-COV-2 (COVID-19) vaccine, UNSPECIFIED 12/28/2020 completed Not Available [facility] 05/08/2023 05:31:26 COVID-19, mRNA, LNP-S, PF, zeina-sucrose, 30 mcg/0.3 mL 02/26/2023 completed Not Available [facility] 05/08/2023 05:31:26 Past Encounters Encounter ID Performer Location Encounter Start Date Encounter Closed Date Diagnosis/Indication Diagnosis SNOMED-CT Code [id number] ALLY BRADFORD MD [address] [address] 10/23/2023 13:18:16 10/23/2023 14:49:54 Muscle spasm of cervical muscle of neck 549131804542 Chronic pain 09677037 Irregular intermenstrual bleeding 76048862 Mixed anxi ety and depressive disorder 071535771 Chronic pe lvic pain of female 838512691 Congenital pes planus 23 023982 Goals Section Goal Description Status Start Date LastModified by Organization Details LastModified Time Pt will get Disability None Recorded Goal not achieved ELDA LANG Information not available 07/29/2023 18:46:09 Pt will get a job appropriate for her None Recorded Goal not achieved 024 EVELYN MANN Information not available 07/29/2023 15:36:16 Health Concerns Section Related Observation LastModified by Organization Detai ls LastModified Time None Recorded Concern Status LastModified by Organization Details LastModified Time None Recorded Payers Encounter Date Sequence Insurance Name Policy Number Policy Zabala Covered Member ID Zabala Member ID Guarantor Name 10/23/2023 1 [facility] (MEDICAID) Izabel Madrigal [id number] Izabel Madrigal Notes Date Note Type Note Provider Name and Address Organization Details Recorded Time 10/23/2023 text/html HPI Notes: Admitted from 10/02-10/11 to the [facility] for suicidal ideation. Sees psychiatry, Vishnu Amaya ([facility]) and a therapist named Shante. At [facility], gabapentin was increased. Saw pelvic floor PT on 10/10. She notes that hearing about worsening prolapse and thinking about applying for disability felt triggering and overwhelming. Using MJ to cope and pushing off processing. Stopped smoking and everything hit her at once. She then felt suicidal and went to the ED. Jaison increase has helped improve the pain relief. 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 She is less worried about this now. Decided to not smoke MJ for 6 months and then assess how mental health and digestive health are and reassess if she can use it. Trying to be more open with family about how she is feeling. Being more active - but has flat feet and needs good arch support. Had inserts from pharmacy but they don't work as well as her hiking boots. Wonders about getting custom insoles. --- Pelvic pain: Has f/u with urogyn in November with pessary fitting as well. She is wondering if some of her symptoms are not related to the prolapse and may be attributable to other things. She notes pelvic heaviness and pain, worse in the adnexa and with valsalva, worse with standing and better when lying down. She also notes spotting since having the nexplanon placed last fall, this didn't happen with her first nexplanon. She looked up her symptoms and is wondering about pelvic congestion. She denies vulvar varicosities. ALLY BRADFORD MD [address], [place], [address], [facility] 10/23/2023 20:52:56 OBGyn Episode No OBEpisode recorded.
--- OUTSIDE RECORDS SUMMARY | 2023-12-17 14:54 | XMS_ITS | Encounter Summary ---
Author Organization [facility] Address [facility] [place] [address] Care Team Providers Care Molecular Biology Scientist Name Role Phone Ally Bradford MD Primary Care Provider [phone] Encounter Details Date Type Department Care Team (Latest Contact Info) Description 09/01/2023 Travel Social History Tobacco Use Types Packs/Day Years [...] Scheduled View Only Obstetrics and Gynecology at [place] [phone] Nurse, Grecia MCLAUGHLIN RN 02/05/2024 3:00 PM EDT Office Visit [place]etrics [place] [address] Jeane Quiñonez MD [facility] [place] [address] documented as of this encounter Visit Diagnoses Not on filedocumented in this encounter Care Teams Molecular Biology Scientist Relationship Specialty Start Date End Date Ally Bradford MD [address] [place] [address] PCP - General Family Medicine 09/01/23 documented as of this encounter
--- OUTSIDE RECORDS SUMMARY | 2023-12-17 14:54 | XMS_ITS | Encounter Summary ---
[place] [address] Care Team Providers Care Medical Delivery Driver Name Role Phone Ally Bradford MD Primary Care Provider [phone] Reason for Referral * Physical Therapy (Routine) - Authorized Specialty Diagnoses / Procedures Referred By Bobby t Referred To Contact Physical Therapy Diagnoses OAB (overactive bladder) IC (interstitial cystitis) Pelvic floor dysfunction Chronic pelvic pain in female Chronic constipation Levator spasm Farhana Graham APRN [address] [facility] [address] Physical TherapyRowdy [facility]I [facility] [address] [place] [address] Referral ID Status Reason Start Date Expiration Date Visits Requested Visits Authorized [id number] Authorized Evaluate and Treat 09/01/2023 02/28/2024 12 12 Reason for Visit * Reason Comments Establish Care * Consultation (Routine) - Closed Specialty Diagnoses / Procedures Referred By Contac t Referred To Contact Urology Diagnoses Pelvic and perineal pain 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 Ally Bradford MD [address] [place] [address] [facility] [address], [place] [address] Referral ID Status Reason Start Date Expiration Date V isits Requested Visits Authorized [id number] Closed Consult, Test & Treat PCP Updated and/or Approved 04/11/2023 04/10/2024 6 6 Encounter Details Date Type Department Care Team (Late st Contact Info) Description 09/01/2023 8:00 AM EDT Office Visit Obstetrics [place] [address] Farhana Graham, MULTIPLE TUBE WINDING MACHINE OPERATOR 5 [facility] [address] OAB (overactive bladder); IC (interstitial cystitis); Pelvic floor dysfunction; Chronic pelvic pain in female; Chronic constipation; Levator spasm Social History Tobacco Use Types Packs/Day Years Used Date Smoking Tobacco: Never Smokeless Tobacco: Never Tobacco Cessation:Counseling Given: Not Answered Sex and Gender Information Value Date Recorded Sex Assigned at Not on file Gender Identity Not on file Sexual Orientation Not on file documented as of this encounter Last Filed Vital Signs Vital Sign Reading Time Taken Comments Blood Pressure 110/68 09/01/2023 8:03 AM EDT Pulse 83 09/01/2023 8:03 AM EDT Temperature 36.6 ??C (97.8 ??F) 09/01/2023 8:03 AM ED T Respiratory Rate - - Oxygen Saturation 100% 09/01/2023 8:03 AM EDT Inhaled Oxygen Concentration - - Weight 72.3 kg (159 lb 8 oz) 09/01/2023 8:03 AM EDT Height 172.7 cm (5' 8) 09/01/2023 8:03 AM EDT Body Mass Index 24.25 09/01/2023 8:03 AM EDT documented in this encounter Progress Notes * Farhana Graham, MULTIPLE TUBE WINDING MACHINE OPERATOR - 09/01/2023 8:00 AM EDT Female Pelvic Medicine and Reconstructive Surgery @ [facility] Patient Name: Izabel Madrigal Patient Primary Care Provider: Ally Bradford MD Referring Provider: Ally Bradford MD Chief Complaint: pelvic pain, IC History of Present Illness: Ms. Madrigal is a 23 y.o. nulliparous woman who presents for evaluation and assessment of pelvic pain and IC of many years duration. I have independently reviewed referring provider notes. She states at age 18 she had recurrent UTIs which antibiotics resolved, but her symptoms kept returning. She was seen at [facility] and urgent cares. Once she moved and established care with a urogyn around [facility], she was dx with interstitial cystitis/bladder pain syndrome (IC/BPS) and a stage 1 cystocele. She states about 1-2 years ago her symptoms started worsening. She is having lower pelvic pain, increased vaginal discharge with an odor and some itching. She states she has had negative testing for BV, yeast and STIs. Her pain is across her whole lower abdomen which is separate from her bladder pain, like a pulling pain and pressure. It worsens with activities like sitting or standing for a longtime, walking, coughing. She has had spotting with fresh blood for a few days after having this pelvic pain if the pelvic pain lasts for more than 48 hours. She has a Nexplanon for control which was just placed in the fall of 2022. This was her second implant and she has not had any change in her symptoms with new placement. She does have bladder pain on top of the pelvic pain. She is taking hydroxyzine which has helped with the pain, but she is still having some dull bladder pain not instead of the burning UTI like symptoms. With a symptom flare, she has increased frequency, urgency and bladder pain. The pain in her bladder gets better with voiding, but the pain in her urethra hurts more with voiding and lasts for about 15 minutes before subsiding. She has a dx with EDS. She has been to pelvic floor physical therapy in the past with hypertonic pelvic floor. This did not help with any of her pain symptoms, but she does notice that when she does some bridging, it does improve her pelvic pressure. Sometimes, she feels like she can't relax to empty her bladder and her stream will be very slow anddribbling at the end. She can have some urinary incontinence with urgency and can't get there in time. Twice with a full accident that she couldn't hold her bladder. She will need to find a bathroom within about 5 minutesof feeling the urge. This has occurred about twice in the past 6 months. Previous urinary incontinence/prolapse treatments (Medical/Behavioral/Surgical): pelvic floor physical therapy Hydroxyzine 50 mg nightly - current with some improvement IC diet Cimetidine - felt like she wouldn't digest food with this. Bladder irritants: Fluid intake: herbal tea - 1-3 cups with honey only, powerade, gatorade, fruit type drink Caffeine intake: none Cigarette smoking (packs, time, if quit when): not currently Alcohol: sober for 3 months Patient endorses a history of recurrent urinary tract infection. Patient denies history of urinary tract abnormality. Patient denies history of pyelonephritis. Patient denies history of nephrolithiasis. Patient denies any gross hematuria. Bladder Function Urinary incontinence: yes No. episodes: twice in the past 6 months Pad use (per day): none Daytime voids: 6-8 times Nocturia: none Storage symptoms Urinary frequency Nocturia Stress urinary incontinence - leakage with exertion, cough/sneeze rare Urge urinary incontinence - leakage preceded immediately by urge to void Noctural enuresis - NOT IN ASSOCIATION WITH URGE Continuous urinary leakage Other: (e,g. giggle, intercourse-related) Bladder sensation Normal - aware of filling and increased sensation up to desire to void x Increased - feels an early and persistent need to void Reduced - aware of filling but NOT definite desire to void Absent - NO sensation of filling or need to void Non-specific - No specific bladder symptoms during filling or void Voiding symptoms None sometimes Slow stream Spraying Intermittent stream - stop/start on > 1 occasion during void Straining - muscular effort to initiate, maintain OR improve stream sometimes Terminal dribble - prolonged final part of void Feeling of incomplete emptying Pelvic Organ Prolapse (POP) Any personally see or feel a vaginal bulge? yes What precipitates prolapse or symptoms of prolapse? Pressure at the top wall with prolonged sitting, standing, walking, coughing Previous treatment for POP (physical therapy, pessary, surgery)?: none Bowel Function Fecal incontinence (yes/no): no Number of bowel movements (day/week): every 1-2 days with stool softeners Defecatory Dysfunction: Symptom Presence Symptom Presence NONE x Incomplete Emptying Straining Infrequent stools (<3 week) Splinting Abdominal discomfort Loose stools Defecatory urgency Hard stools Other Sexual Function Active?: not currently Pain with intercourse?: pain with her last sexual encounter about 6 months ago If yes, insertional/Deep? deep Past Medical History: Diagnosis Date Bladder pain syndrome Chronic pelvic pain in female Korey-Danlos syndrome IBS (irritable bowel syndrome) Past Surgical History: Procedure Laterality Date WISDOM TOOTH EXTRACTION Outpatient Medications Marked as Taking for the 09/01/23 encounter (Office Visit) with Farhana Graham APRN Medication Sig Dispense Refill methocarbamoL (Robaxin) 500 mg tablet Take 500 mg by mouth 4 times daily. meloxicam (Mobic) 15 mg tablet Take 15 mg by mouth daily. DULoxetine DR (Cymbalta) [address] capsule Take 40 mg by mouth daily. UNABLE TO FIND 2 mg. Guaficin hydrALAZINE (Apresoline) 50 mg tablet Take 50 mg by mouth 3 times daily. mirtazapine (Remeron) 30 mg tablet Take 30 mg by mouth nightly. gabapentin (Neurontin) 300 mg capsule Take 300 mg by mouth 3 times daily. docusate sodium (Colace) 100 mg capsule Take 100 mg by mouth 2 times daily. No Known Allergies Social History Tobacco Use Smoking status: Never Smokeless tobacco: Never Vaping Use Vaping Use: Never used History reviewed. No pertinent family history. ROS: Review of all other systems negative except for those mentioned above or indicated below: System Symptom Presence Constitutional Weight Loss No Weight gain No Eyes History of glaucoma No ENT/Mouth Dry mouth No Cardiovascular Chest pain No Leg swelling No Respiratory Wheezing No SOB No GI Nausea/vomiting yes Abdominal pain yes Constipation yes Skin/Breast Breast masses No Rash/ulcer No Musculoskeletal Muscle weakness yes Trouble Walking No Neurological Dizziness/falling yes Numbness yes Psychiatric Depression yes Anxiety yes Endocrine Abnormal thirst No Hot flashes No Hematologic Frequent bruising yes History of blood transfusions No Blood clots (DVT / PE) No Prior problems w/ anesthesia No Last Pap smear: per patient within the last 1-2 years and normal. OBJECTIVE: Blood pressure 110/68, pulse 83, temperature 36.6 ??C (97.8 ??F), height 172.7 cm (5' 8), weight 72.3 kg (159 lb 8 oz), last menstrual period 08/28/2023, SpO2 100%. The [employer] Bladder Scanner/[employer] Bladder Scanner was used to obtain a postvoid residual to further delineate urinary symptoms. After the patient voided, 46 mL was measured as a postvoid residual. This is within normal limits for patient's history and age. A cashier clerk is present for the examination. General: normal appearing female, pleasant mood, normal speech Skin: skin of abdomen/pelvis normal Respiratory: normal work of breathing Neuro: no paraspinous tenderness; saddle sensory function (S2-4) intact in the pelvic area to touch Cardiac: no lower extremity edema Gastrointestinal: no palpable masses/organomegaly, soft/nontender, no appreciable hernia Back: no costovertebral angle tenderness bilaterally Extremities: No pitting edema, no calf tenderness bilaterally Musculoskeletal: levator ani tone (0-5): 3, levator ani contraction (0-5): 4, Bilateral levator tenderness; lower extremity motor 5/5 bilaterally Pelvic: Cough stress test (empty supine): negative External Genitalia: Vulva, Graettinger's and Bartholin glands normal, urethra without tenderness or mass Vagina: With Valsalva, the anterior vaginal wall comes 1 cm above the hymen, the posterior vagina wall comes 3 cm above the hymen, and the cervix/apex comes 4 cm above the hymen Atrophic epithelium (yes/no)?: no Discharge?: mild bleeding Cervix: mobile, non-tender, non-friable Bimanual (uterus/adnexa): mobile, tender, regular contour without adnexal masses, bilateral tenderness Anal sphincter: Anal wink: present POP Q Measurements: Aa -1 Ba -1 C -4 GH 3 PB 3 TVL 8 Ap -3 Bp -3 D -5 Impression: Ms. Madrigal is a 23 y.o. woman with: Uterovaginal prolapse, primarily anterior wall Chronic pelvic pain interstitial cystitis/bladder pain syndrome (IC/BPS) Overactive bladder Chronic constipation Hypertonic pelvic floor Recommendations: Will send out her urine for UC to rule out infection. Decided against UA micro as she is having some vaginal spotting, so there will likely be blood in her urine sample. Will treat based on results as needed. We reviewed that her dx of OAB, IC/BPS, levator spasm and chronic constipation all go hand in hand and the most benefit she may get is from pelvic floor physical therapy. She is agreeable and will place referral to [facility]. For her overactive bladder/urge urinary incontinence (UUI): We discussed conservative treatments for overactive bladder include fluid management and the avoidance of bladder irritants. We discussed that the 5 most common bladder irritants are: 1) caffeine 2) artificial sweeteners 3) carbonation 4) alcohol 5) smoking/vaping Bladder irritants should be avoided to avoid urinary urgency/urgency urinary incontinence. We further discussed other conservative treatment options including weight loss, timed voids, and urge suppression strategies. We also discussed pelvic floor muscles exercises (Kegel exercises). Written information was given. If treatment goals are not met with lifestyle and behavioral changes, medications may be considered. For her pelvic organ prolapse: Normal and abnormal anatomy of pelvic floor support discussed. We discussed the symptoms of cystocele or rectocele is a vaginal bulge or the need to splint for comfort, micturition, or defecation. Wediscussed options for treatment of pelvic organ prolapse include expectant management, pelvic floormuscle exercises, pessaries, and surgery. Suggested that we try a pessary to see if we can get improvement of her pressure feeling with the pessary and if so, she can either continue with pessary management or we know that surgery may give her benefit. We briefly discussed the concern over recurrence of prolapse though with EDS. For her bowel symptoms: We discussed that constipation will need to continually be treated with diet and medications. I recommend the followin) Keeping current with colonoscopy screening 2) Home therapies including: increasing fluids, increasing exercise, allowing for a bowel movement schedule, squatty potty. 3) Slowly increasing in dietary fiber, such as prunes, or fiber supplementation to 25-35 grams per day to avoid increased gas and bloating. We discussed always taking fiber with water. 4) Consider taking the supplement magnesium oxide 400 - 500 mg daily 5.) Consider adding Miralax (17 gm of powder in water daily) to daily regime if noticeable gains are not made with fiber supplementation Written information given. She has not tried magnesium oxide before and will give this a shot. Will plan for pessary fitting and pelvic floor physical therapy to start. May consider TVUS for evaluation if no improvement of pain/pressure with pessary and/or medications for OAB/IC. I spent 70 minutes, including pre and post encounter time on her diagnosis and reviewing options for treatment today. (x) AUGS or other informational pamphlets given to patient Farhana Graham APRN Urogynecology CC: Ally Bradford MD documented in this encounter Plan of Treatment Upcoming Encounters Date Type Department Care Team (Late st Contact Info) Description 02/05/2024 2:30 PM EDT Scheduled View Only Obstetrics [place] [address] Nurse, Grecia MCLAUGHLIN RN 02/05/2024 3:00 PM EDT Office Visit Obstetrics [place] [address] Jeane Quiñonez MD [facility] [place] [address] Scheduled Referrals Name Type Priority Associated Diagnoses Orde r Schedule Referral to Physical Therapy Outpatient Referral Routine OAB (overactive bladder) IC (interstitial cystitis) Pelvic floor dysfunction Chronic pelvic pain in female Chronic constipation Levator spasm Ordered: 09/01/2023 documented as of this encounter Procedures Procedure Name Priority Date/Time Associated Diagnosis Comments URINE CULTURE Routine 09/01/2023 7:02 PM EDT OAB (overactive bladder) IC (interstitial cystitis) BLADDER SCANNER Routine 09/01/2023 OAB (overactive bladder) IC (interstitial cystitis) POCT URINE DIPSTICK Routine 09/01/2023 OAB (overactive bladder) IC (interstitial cystitis) documented in this encounter Results * (ABNORMAL) Urine culture Clean Catch Urine (09/01/2023 7:02 PM EDT) Urine Culture 10,000-49,000 cfu/ml mixed mucosal [place] Note: Culture shows multiple bacterial species suggesting mucosal contamination. (A) [facility] Clean Catch Urine 09/01/2023 7:02 PM EDT 09/01/2023 7:02 PM EDT Narrative Resulting Agency Comment Spec In Lab Farhana Graham APRN MICROBIOLOGY - GEN ERAL ORDERABLES [facility] [place] [address] * Bladder Scanner (09/01/2023) Bladder Scan (mL) 46 mL Farhana Graham APRN URO PROC W/O RFL O RDERABLES * POCT urine dipstick (09/01/2023) POC Sp [place] 1.02 1.002 - 1.030 POC pH, UA 5 5.0 - 8.5 POC Leuk, UA Trace Negative - Negative POC Nitrite, UA Neg Negative - Negative POC Protein, UA Trace Negative - Negative mg/dL POC Glucose, UA Normal Normal - Normal mg/dL POC Ketone, UA Neg Negative - Negative POC Urobil, UA Normal 0.2 - 1.0 mg/dL POC Bili, UA Neg Negative - Negative POC Blood, UA 50 Negative - Negative rosa/uL Farhana Graham APRN POINT OF CARE TEST ORDERABLES documented in this encounter Visit Diagnoses Diagnosis OAB (overactive bladder) Hypertonicity of bladder IC (interstitial cystitis) Chronic interstitial cystitis Pelvic floor dysfunction Pelvic muscle wasting Chronic pelvic pain in female Unspecified symptom associated with female genital organs Chronic constipation Unspecified constipation Levator spasm Abnormal involuntary movements documented in this encounter Care Teams Medical Delivery Driver Relationship Specialty Start Date End Date Ally Bradford MD [address] [place] [address] PCP - General Family Medicine 09/01/23 documented as of this encounter
--- OUTSIDE RECORDS SUMMARY | 2023-12-17 14:54 | XMS_ITS | Data Portability ---
Author Organization [facility] Travel Software [facility], [facility] [place] [address] Care Team Providers Care Records And Tape Recordings Engineer Name Role Phone LAVELL BRADFORD Primary Care Provider [phone] [facility] OTHER [facility] Psychiatrist ELDA LANG Community Health Worker [phone] Assessment Encounter Date Assessment Date Assessment LastModified by Organization Details LastModified Time 06/29/2023 06/29/2023 The total time devoted to today's encounter, including both the tzjp-mh-uvsu time with the patient and/or family/caregiver and qdc-fddw-ze-face time I personally spent is 34 minutes. Including time spent reviewing discharge summer, face to face time and documentation [email or web address] Not available 06/29/2023 08:55:10 12/17/2023 12/17/2023 Izabel reports improvement in symptoms with the pessary, including decreased urgency, bladder pain, and muscle pain, though she is urinating more frequently. 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 She experiences increased fatigue with moderate exercise and daily activities, necessitating activity pacing. Iron and vitamin D levels are to be checked to rule out deficiencies contributing to fatigue. Follow-up for the pessary is scheduled for January. [email or web address] Not available 12/17/2023 09:17:24 Plan of Treatment Reminders Order Date Submit Date Provider Last Modified By Organization Details Last Modified Time Details Appointments Office Visit 2023 08:30A M Not available Not available Not available Chronic Care Coordinat or 60 2023 01:00P M Not available Not available Not available Office Visit 30 2023 10:20A M Not available Not available Not available Chronic Care Coordinat or 60 2024 01:00P M Not available Not available Not available Lab TSH, serum, reflex free T4 2023 [facility] (Registration ), [address] [place] [address] [place], [address], 10/27/2023 14:36:06 vitamin D, 25-hydrox y, total, serum - 1 tiger top drawn in office-SN [address] [facility] (Registration ), [address] [place] [address] [place], [address], 12/17/2023 09:26:44 iron + TIBC + ferritin, serum [address] [facility] (Registration ), [address] [place] [address] [place], [address], 12/17/2023 09:26:45 Referral None recorded. Procedures None recorded. Surgeries None recorded. Imaging None recorded. Medication Orders methocarb crystal 750 mg tablet [address] [facility], [address] [place] [address], [id number], 09/10/2023 14:18:22 docusate sodium 100 mg capsule 2023 024 [place] [facility], [address] [place] [address], [address], 09/10/2023 15:07:11 meloxicam 15 mg tablet 2023 024 [facility], [address] [place] [address], [id number], 10/23/2023 14:10:33 methocarb crystal 500 mg tablet 2023 024 [facility], [address] [place], [address], 10/23/2023 14:10:32 Patient TargetsNo targets recorded. Patient Instructions Encounter Date Encounter Id Patient Instructions Last Modified By Organization Details Last Modified Time 12/17/2023 [id number] Dear Mike Paiz nk you for visiting today and for your dedication to improving your health. It was great to hear that the pessary is providing relief. Below are the alvarenga instructions and recommendations from our discussion: - Shoe Inserts: Continue pursuing custom shoe inserts for flat feet to support increased activity levels. I will provide additional notes for insurance purposes. - Fatigue Management: Gradually increase your activity to manage symptoms of chronic fatigue. Ensure adequate nutrition and pacing during activities. - Dietary Considerations: Focus on increasing protein intake, alongside vegetables and healthy fats. Consider incorporating more red meat if iron levels are low, or we may explore an iron supplement. - Lab Tests: We will check your iron levels and vitamin D to rule out deficiencies contributing to fatigue. - Medication and Supplements: Continue current medications. Try to consistently take a multivitamin, staggered from other medications. - Physical Therapy: Consider returning to physical therapy for chronic fatigue syndrome management and activity pacing. - Follow-Up Appointments: You have a follow-up scheduled for the pessary in January. Feel free to contact me if issues arise before then. Please keep me updated on your progress, and do not hesitate to reach out if you have any questions or concerns. Warm regards, Dr. Lavell Bradford MD [email or web address] Not available 12/17/2023 09:06:56 Reason for Referral Psychologist Referral for Au tism spectrum disorder would like to explore a possible diagnosis of autism Referring Physician: Lavell Bradford, Family Medicine, Encounter Date: 04/02/2023 Interpreter Translator Referral for Ch ronic pelvic pain of female Referring Physician: Lavell Bradford Family Medicine, Encounter Date: 04/02/2023 Results Created Date Observation Date Name Description Value Unit Range Abnormal Flag LastModifiedBy Organization Detail LastModifiedTime 06/03/19 24 06/03/2023 COMPL ETE BLOOD COUNT W/DIF F WBC 4.01 10_3/ uL Not Available [address] [place], [address] 06/03/2023 19:28:32 06/03/19 24 06/03/2023 COMPL ETE BLOOD COUNT W/DIF F RBC 4.82 10_6/ uL Not Available [address] [place], [address] 06/03/2023 19:28:32 06/03/19 24 06/03/2023 COMPL ETE BLOOD COUNT W/DIF F HGB 14.7 g/dL Not Available [address] [place], [address] 06/03/2023 19:28:32 06/03/19 24 06/03/2023 COMPL ETE BLOOD COUNT W/DIF F HCT 42.2 % Not Available [address] [place], [address] 06/03/2023 19:28:32 06/03/19 24 06/03/2023 COMPL ETE BLOOD COUNT W/DIF F MCV 88 fL Not Available [address] [place], [address] 06/03/2023 19:28:32 06/03/19 24 06/03/2023 COMPL ETE BLOOD COUNT W/DIF F MCH 30.5 pg Not Available [address] [place], [address] 06/03/2023 19:28:32 06/03/19 24 06/03/2023 COMPL ETE BLOOD COUNT W/DIF F MCHC 34.8 % Not Available [address] [place], [address] 06/03/2023 19:28:32 06/03/19 24 06/03/2023 COMPL ETE BLOOD COUNT W/DIF F RDW 12.7 % Not Available [address] [place], [address] 06/03/2023 19:28:32 06/03/19 24 06/03/2023 COMPL ETE BLOOD COUNT W/DIF F platelet count 242 10_3/ uL Not Available [address] [place], [address] 06/03/2023 19:28:32 06/03/19 24 06/03/2023 COMPL ETE BLOOD COUNT W/DIF F MPV 10.3 fL Not Available [address] [place], [address] 06/03/2023 19:28:32 06/03/19 24 06/03/2023 COMPL ETE BLOOD COUNT W/DIF F neutrophils % 43.9 Not Available [address], [address] 06/03/2023 19:28:32 06/03/19 24 06/03/2023 COMPL ETE BLOOD COUNT W/DIF F lymphocytes % 38.4 Not Available [address] [place], [address] 06/03/2023 19:28:32 06/03/19 24 06/03/2023 COMPL ETE BLOOD COUNT W/DIF F monocytes % 17.0 Not Available [address] [place], [address] 06/03/2023 19:28:32 06/03/19 24 06/03/2023 COMPL ETE BLOOD COUNT W/DIF F eosinophils % 0.0 Not Available [address] [place], [address] 06/03/2023 19:28:32 06/03/19 24 06/03/2023 COMPL ETE BLOOD COUNT W/DIF F basophils % 0.5 Not Available [address] [place], [address] 06/03/2023 19:28:32 06/03/19 24 06/03/2023 COMPL ETE BLOOD COUNT W/DIF F immature grans % 0.2 Not Available [address] [place], [address] 06/03/2023 19:28:32 06/03/19 24 06/03/2023 COMPL ETE BLOOD COUNT W/DIF F nucleated RBC 0.0 % Not Available [address] [place], [address] 06/03/2023 19:28:32 06/03/19 24 06/03/2023 COMPL ETE BLOOD COUNT W/DIF F absolute neutrophil count 1.76 10_3/ uL Not Available [address] [place], [address] 06/03/2023 19:28:32 06/03/19 24 06/03/2023 COMPL ETE BLOOD COUNT W/DIF F absolute lymphocyte count 1.54 10_3/ uL Not Available [address] [place], [address] 06/03/2023 19:28:32 06/03/19 24 06/03/2023 COMPL ETE BLOOD COUNT W/DIF F absolute monocyte count 0.68 10_3/ uL Not Available [address] [place], [address] 06/03/2023 19:28:32 06/03/19 24 06/03/2023 COMPL ETE BLOOD COUNT W/DIF F absolute eosinophil count 0.00 10_3/ uL Not Available [address] [place], [address] 06/03/2023 19:28:32 06/03/19 24 06/03/2023 COMPL ETE BLOOD COUNT W/DIF F absolute basophil count 0.02 10_3/ uL Not Available [address] [place], [address] 06/03/2023 19:28:32 06/03/19 24 06/03/2023 URINA LYSIS color Yellow Not Available [facility] [address] [place], [address] 06/03/2023 19:35:33 06/03/19 24 06/03/2023 URINA LYSIS clarity Clear Not Available [facility] [address] [place], [address] 06/03/2023 19:35:33 06/03/19 24 06/03/2023 URINA LYSIS specific gravity 1.025 Not Available [address] [place], [address] 06/03/2023 19:35:33 06/03/19 24 06/03/2023 URINA LYSIS pH 6.5 Not Available [address] [place], [address] 06/03/2023 19:35:33 06/03/19 24 06/03/2023 URINA LYSIS leukocyte esterase Negati ve Not Available [address] [place], [address] 06/03/2023 19:35:33 06/03/19 24 06/03/2023 URINA LYSIS nitrite Negati ve Not Available [address] [place], [address] 06/03/2023 19:35:33 06/03/19 24 06/03/2023 URINA LYSIS protein Trace mg/dL Not Available [address] [place], [address] 06/03/2023 19:35:33 06/03/19 24 06/03/2023 URINA LYSIS glucose Negati ve mg/dL Not Available [address] [place], [address] 06/03/2023 19:35:33 06/03/19 24 06/03/2023 URINA LYSIS ketones 40 mg/dL Not Available [address] [place], [address] 06/03/2023 19:35:33 06/03/19 24 06/03/2023 URINA LYSIS urobilinogen 1.0 mg/dL Not Available [address] [place], [address] 06/03/2023 19:35:33 06/03/19 24 06/03/2023 URINA LYSIS bilirubin Small Not Available [address] [place], [address] 06/03/2023 19:35:33 06/03/19 24 06/03/2023 URINA LYSIS blood Negati ve Not Available [address] [place], [address] 06/03/2023 19:35:33 06/03/19 24 06/03/2023 URINE DRUG SCREE N ([facility] ) methadone Negati ve negtat anisha Not Available [address] [place], [address] 06/03/2023 19:47:34 06/03/19 24 06/03/2023 URINE DRUG SCREE N ([facility] ) benzodiazepi jose guadalupe Negati ve negati ve Not Available [address] [place], [address] 06/03/2023 19:47:34 06/03/19 24 06/03/2023 URINE DRUG SCREE N ([facility] ) cocaine Negati ve negati ve Not Available [address] [place], [address] 06/03/2023 19:47:34 06/03/19 24 06/03/2023 URINE DRUG SCREE N ([facility] ) amphetamines Negati ve negati ve Not Available [address] [place], [address] 06/03/2023 19:47:34 06/03/19 24 06/03/2023 URINE DRUG SCREE N ([facility] ) tetrahydroca nnabinol Positi ve negati ve abnormal Not Available [address] [place], [address] 06/03/2023 19:47:34 06/03/19 24 06/03/2023 URINE DRUG SCREE N ([facility] ) opiates Negati ve negati ve Not Available [address] [place], [address] 06/03/2023 19:47:34 06/03/19 24 06/03/2023 URINE DRUG SCREE N ([facility] ) barbiturates Negati ve negati ve Not Available [address] [place], [address] 06/03/2023 19:47:34 06/03/19 24 06/03/2023 URINE DRUG SCREE N ([facility] ) tricyclic antidepressa nts Negati ve negtiv e Not Available [address] [place], [address] 06/03/2023 19:47:34 06/03/19 24 06/03/2023 ACETA MINOP HEN acetaminophe n < 2 ug/mL Not Available [address] [place], [address] 06/03/2023 19:54:35 06/03/19 24 06/03/2023 SALIC YLATE salicylate < 2.8 mg/dL Not Available [address], [address] 06/03/2023 19:54:35 06/03/19 24 06/03/2023 COMPR EHENS ANISHA METAB OLIC PANEL calcium 9.2 mg/dL Not Available [address] [place], [address] 06/03/2023 20:00:36 06/03/19 24 06/03/2023 COMPR EHENS ANISHA METAB OLIC PANEL glucose 94 mg/dL Not Available [address] [place], [address] 06/03/2023 20:00:36 06/03/19 24 06/03/2023 COMPR EHENS ANISHA METAB OLIC PANEL BUN 7 mg/dL Not Available [address] [place], [address] 06/03/2023 20:00:36 06/03/19 24 06/03/2023 COMPR EHENS ANISHA METAB OLIC PANEL creatinine 0.8 mg/dL Not Available [address], [address] 06/03/2023 20:00:36 06/03/19 24 06/03/2023 COMPR EHENS ANISHA METAB OLIC PANEL total protein 8.0 g/dL Not Available [address] [place], [address] 06/03/2023 20:00:36 06/03/19 24 06/03/2023 COMPR EHENS ANISHA METAB OLIC PANEL albumin 4.1 g/dL Not Available [address] [place], [address] 06/03/2023 20:00:36 06/03/19 24 06/03/2023 COMPR EHENS ANISHA METAB OLIC PANEL bilirubin, total 0.6 mg/dL Not Available [address] [place], [address] 06/03/2023 20:00:36 06/03/19 24 06/03/2023 COMPR EHENS ANISHA METAB OLIC PANEL alk phos 79 U/L Not Available [address] [place], [address] 06/03/2023 20:00:36 06/03/19 24 06/03/2023 COMPR EHENS ANISHA METAB OLIC PANEL sodium 139 mmol/ L Not Available [address] [place], [address] 06/03/2023 20:00:36 06/03/19 24 06/03/2023 COMPR EHENS ANISHA METAB OLIC PANEL potassium 3.5 mmol/ L Not Available [address] [place], [address] 06/03/2023 20:00:36 06/03/19 24 06/03/2023 COMPR EHENS ANISHA METAB OLIC PANEL chloride 101 mmol/ L Not Available [address] [place], [address] 06/03/2023 20:00:36 06/03/19 24 06/03/2023 COMPR EHENS ANISHA METAB OLIC PANEL CO2 26.8 mmol/ L Not Available [address] [place], [address] 06/03/2023 20:00:36 06/03/19 24 06/03/2023 COMPR EHENS ANISHA METAB OLIC PANEL anion gap 11.2 mmol/ L Not Available [address] [place], [address] 06/03/2023 20:00:36 06/03/19 24 06/03/2023 COMPR EHENS ANISHA METAB OLIC PANEL AST 12 U/L Not Available [address] [place], [address] 06/03/2023 20:00:36 06/03/19 24 06/03/2023 COMPR EHENS ANISHA METAB OLIC PANEL ALT 18 U/L Not Available [address] [place], [address] 06/03/2023 20:00:36 06/03/19 24 06/03/2023 ETHYL ALCOH OL ethyl alcohol < 3.0 mg/dL Not Available [address] [place], [address] 06/03/2023 20:00:36 06/03/19 24 06/03/2023 TSH (W/RE F FT4) TSH (w/ref FT4) 4.12 uIU/m L Not Available [address] [place], [address] 06/03/2023 20:00:36 08/12/19 24 08/12/2023 LACTA TE lactate 1.8 mmol/ L Not Available [address] [place], [address] 08/12/2023 19:12:06 08/12/19 24 08/12/2023 COMPL ETE BLOOD COUNT W/DIF F WBC 7.25 10_3/ uL Not Available [address] [place], [address] 08/12/2023 19:16:06 08/12/19 24 08/12/2023 COMPL ETE BLOOD COUNT W/DIF F RBC 4.82 10_6/ uL Not Available [address] [place], [address] 08/12/2023 19:16:06 08/12/19 24 08/12/2023 COMPL ETE BLOOD COUNT W/DIF F HGB 14.8 g/dL Not Available [address] [place], [address] 08/12/2023 19:16:06 08/12/19 24 08/12/2023 COMPL ETE BLOOD COUNT W/DIF F HCT 43.0 % Not Available [address] [place], [address] 08/12/2023 19:16:06 08/12/19 24 08/12/2023 COMPL ETE BLOOD COUNT W/DIF F MCV 89 fL Not Available [address] [place], [address] 08/12/2023 19:16:06 08/12/19 24 08/12/2023 COMPL ETE BLOOD COUNT W/DIF F MCH 30.7 pg Not Available [address] [place], [address] 08/12/2023 19:16:06 08/12/19 24 08/12/2023 COMPL ETE BLOOD COUNT W/DIF F MCHC 34.4 % Not Available [address] [place], [address] 08/12/2023 19:16:06 08/12/19 24 08/12/2023 COMPL ETE BLOOD COUNT W/DIF F RDW 11.9 % Not Available [address] [place], [address] 08/12/2023 19:16:06 08/12/19 24 08/12/2023 COMPL ETE BLOOD COUNT W/DIF F platelet count 292 10_3/ uL Not Available [address] [place], [address] 08/12/2023 19:16:06 08/12/19 24 08/12/2023 COMPL ETE BLOOD COUNT W/DIF F MPV 10.8 fL Not Available [address] [place], [address] 08/12/2023 19:16:06 08/12/19 24 08/12/2023 COMPL ETE BLOOD COUNT W/DIF F neutrophils % 75.7 Not Available [address] [place], [address] 08/12/2023 19:16:06 08/12/19 24 08/12/2023 COMPL ETE BLOOD COUNT W/DIF F lymphocytes % 19.4 Not Available [address] [place], [address] 08/12/2023 19:16:06 08/12/19 24 08/12/2023 COMPL ETE BLOOD COUNT W/DIF F monocytes % 4.0 Not Available [address] [place], [address] 08/12/2023 19:16:06 08/12/19 24 08/12/2023 COMPL ETE BLOOD COUNT W/DIF F eosinophils % 0.0 Not Available [address] [place], [address] 08/12/2023 19:16:06 08/12/19 24 08/12/2023 COMPL ETE BLOOD COUNT W/DIF F basophils % 0.6 Not Available [facility] [address] [place], [address] 08/12/2023 19:16:06 08/12/19 24 08/12/2023 COMPL ETE BLOOD COUNT W/DIF F immature grans % 0.3 Not Available [address] [place], [address] 08/12/2023 19:16:06 08/12/19 24 08/12/2023 COMPL ETE BLOOD COUNT W/DIF F nucleated RBC 0.0 % Not Available [address] [place], [address] 08/12/2023 19:16:06 08/12/19 24 08/12/2023 COMPL ETE BLOOD COUNT W/DIF F absolute neutrophil count 5.49 10_3/ uL Not Available [address] [place], [address] 08/12/2023 19:16:06 08/12/19 24 08/12/2023 COMPL ETE BLOOD COUNT W/DIF F absolute lymphocyte count 1.41 10_3/ uL Not Available [address] [place], [address] 08/12/2023 19:16:06 08/12/19 24 08/12/2023 COMPL ETE BLOOD COUNT W/DIF F absolute monocyte count 0.29 10_3/ uL Not Available [address] [place], [address] 08/12/2023 19:16:06 08/12/19 24 08/12/2023 COMPL ETE BLOOD COUNT W/DIF F absolute eosinophil count 0.00 10_3/ uL Not Available [address] [place], [address] 08/12/2023 19:16:06 08/12/19 24 08/12/2023 COMPL ETE BLOOD COUNT W/DIF F absolute basophil count 0.04 10_3/ uL Not Available [address] [place], [address] 08/12/2023 19:16:06 08/12/19 24 08/12/2023 ESR ESR 11 mm/HR Not Available [address] [place], [address] 08/12/2023 19:16:08 08/12/19 24 08/12/2023 URINA LYSIS color Yellow Not Available [address] [place], [address] 08/12/2023 19:22:07 08/12/19 24 08/12/2023 URINA LYSIS clarity Clear Not Available [address] [place], [address] 08/12/2023 19:22:07 08/12/19 24 08/12/2023 URINA LYSIS specific gravity 1.020 Not Available [address] [place], [address] 08/12/2023 19:22:07 08/12/19 24 08/12/2023 URINA LYSIS pH 7.5 Not Available [address] [place], [address] 08/12/2023 19:22:07 08/12/19 24 08/12/2023 URINA LYSIS leukocyte esterase Negati ve Not Available [address] [place], [address] 08/12/2023 19:22:07 08/12/19 24 08/12/2023 URINA LYSIS nitrite Negati ve Not Available [address] [place], [address] 08/12/2023 19:22:07 08/12/19 24 08/12/2023 URINA LYSIS protein Negati ve mg/dL Not Available [address] [place], [address] 08/12/2023 19:22:07 08/12/19 24 08/12/2023 URINA LYSIS glucose Negati ve mg/dL Not Available [address] [place], [address] 08/12/2023 19:22:07 08/12/19 24 08/12/2023 URINA LYSIS ketones >=160 mg/dL Not Available [address] [place], [address] 08/12/2023 19:22:07 08/12/19 24 08/12/2023 URINA LYSIS urobilinogen 0.2 mg/dL Not Available [address] [place], [address] 08/12/2023 19:22:07 08/12/19 24 08/12/2023 URINA LYSIS bilirubin Negati ve Not Available [address] [place], [address] 08/12/2023 19:22:07 08/12/19 24 08/12/2023 URINA LYSIS blood Negati ve Not Available [address] [place], [address] 08/12/2023 19:22:07 08/12/19 24 08/12/2023 LIVER PANEL total protein 8.1 g/dL Not Available [address] [place], [address] 08/12/2023 19:35:08 08/12/19 24 08/12/2023 LIVER PANEL albumin 4.3 g/dL Not Available [address] [place], [address] 08/12/2023 19:35:08 08/12/19 24 08/12/2023 LIVER PANEL bilirubin, total 0.5 mg/dL Not Available [address] [place], [address] 08/12/2023 19:35:08 08/12/19 24 08/12/2023 LIVER PANEL alk phos 96 U/L Not Available [address] [place], [address] 08/12/2023 19:35:08 08/12/19 24 08/12/2023 LIVER PANEL AST 16 U/L Not Available [address] [place], [address] 08/12/2023 19:35:08 08/12/19 24 08/12/2023 LIVER PANEL ALT 20 U/L Not Available [address] [place], [address] 08/12/2023 19:35:08 08/12/19 24 08/12/2023 LIVER PANEL bilirubin, conjugated 0.1 mg/dL Not Available [address] [place] [place], [address] 08/12/2023 19:35:08 08/12/19 24 08/12/2023 BASIC METAB OLIC PANEL calcium 9.5 mg/dL Not Available [address] [place], [address] 08/12/2023 19:35:08 08/12/19 24 08/12/2023 BASIC METAB OLIC PANEL glucose 108 mg/dL Not Available [address] [place], [address] 08/12/2023 19:35:08 08/12/19 24 08/12/2023 BASIC METAB OLIC PANEL BUN 9 mg/dL Not Available [address] [place], [address] 08/12/2023 19:35:08 08/12/19 24 08/12/2023 BASIC METAB OLIC PANEL creatinine 0.9 mg/dL Not Available [address] [place], [address] 08/12/2023 19:35:08 08/12/19 24 08/12/2023 BASIC METAB OLIC PANEL sodium 141 mmol/ L Not Available [address] [place], [address] 08/12/2023 19:35:08 08/12/19 24 08/12/2023 BASIC METAB OLIC PANEL potassium 3.6 mmol/ L Not Available [address] [place], [address] 08/12/2023 19:35:08 08/12/19 24 08/12/2023 BASIC METAB OLIC PANEL chloride 103 mmol/ L Not Available [place] [address] [place], [address] 08/12/2023 19:35:08 08/12/19 24 08/12/2023 BASIC METAB OLIC PANEL CO2 25.1 mmol/ L Not Available [address] [place], [address] 08/12/2023 19:35:08 08/12/19 24 08/12/2023 BASIC METAB OLIC PANEL anion gap 12.9 mmol/ L Not Available [address] [place], [address] 08/12/2023 19:35:08 08/12/19 24 08/12/2023 MAGNE SIUM magnesium 1.9 mg/dL Not Available [address] [place], [address] 08/12/2023 19:35:09 08/12/19 24 08/12/2023 C-CHRISTINA CTIVE PROTE IN C-reactive protein < 0.50 mg/dL Not Available [address] [place], [address] 08/12/2023 19:35:09 08/12/19 24 08/12/2023 LIPAS E lipase 25 U/L Not Available [address] [place], [address] 08/12/2023 19:35:10 08/12/19 24 08/12/2023 COVID /FLU/ RSV PCR source Nasoph arynx Not Available [address] [place], [address] 08/12/2023 20:26:12 08/12/19 24 08/12/2023 COVID /FLU/ RSV PCR covid-19 PCR Negati ve Not Available [address] [place], [address] 08/12/2023 20:26:12 08/12/19 24 08/12/2023 COVID /FLU/ RSV PCR influenza A PCR Negati ve Not Available [address] [place], [address] 08/12/2023 20:26:12 08/12/19 24 08/12/2023 COVID /FLU/ RSV PCR influenza B PCR Negati ve Not Available [address] [place], [address] 08/12/2023 20:26:12 08/12/19 24 08/12/2023 COVID /FLU/ RSV PCR RSV PCR Negati ve Not Available [address] [place], [address] 08/12/2023 20:26:12 08/15/19 24 08/15/2023 COMPL ETE BLOOD COUNT W/DIF F WBC 6.72 10_3/ uL Not Available [address] [place], [address] 08/15/2023 11:19:30 08/15/19 24 08/15/2023 COMPL ETE BLOOD COUNT W/DIF F RBC 4.86 10_6/ uL Not Available [address] [place], [address] 08/15/2023 11:19:30 08/15/19 24 08/15/2023 COMPL ETE BLOOD COUNT W/DIF F HGB 15.0 g/dL Not Available [address] [place], [address] 08/15/2023 11:19:30 08/15/19 24 08/15/2023 COMPL ETE BLOOD COUNT W/DIF F HCT 43.1 % Not Available [address] [place], [address] 08/15/2023 11:19:30 08/15/19 24 08/15/2023 COMPL ETE BLOOD COUNT W/DIF F MCV 89 fL Not Available [address] [place], [address] 08/15/2023 11:19:30 08/15/19 24 08/15/2023 COMPL ETE BLOOD COUNT W/DIF F MCH 30.9 pg Not Available [address] [place], [address] 08/15/2023 11:19:30 08/15/19 24 08/15/2023 COMPL ETE BLOOD COUNT W/DIF F MCHC 34.8 % Not Available [address] [place], [address] 08/15/2023 11:19:30 08/15/19 24 08/15/2023 COMPL ETE BLOOD COUNT W/DIF F RDW 11.8 % Not Available [address] [place], [address] 08/15/2023 11:19:30 08/15/19 24 08/15/2023 COMPL ETE BLOOD COUNT W/DIF F platelet count 254 10_3/ uL Not Available [address] [place], [address] 08/15/2023 11:19:30 08/15/19 24 08/15/2023 COMPL ETE BLOOD COUNT W/DIF F MPV 10.7 fL Not Available [address] [place], [address] 08/15/2023 11:19:30 08/15/19 24 08/15/2023 COMPL ETE BLOOD COUNT W/DIF F neutrophils % 69.9 Not Available [address] [place], [address] 08/15/2023 11:19:30 08/15/19 24 08/15/2023 COMPL ETE BLOOD COUNT W/DIF F lymphocytes % 24.3 Not Available [address] [place], [address] 08/15/2023 11:19:30 08/15/19 24 08/15/2023 COMPL ETE BLOOD COUNT W/DIF F monocytes % 4.8 Not Available [address] [place], [address] 08/15/2023 11:19:30 08/15/19 24 08/15/2023 COMPL ETE BLOOD COUNT W/DIF F eosinophils % 0.3 Not Available [address] [place], [address] 08/15/2023 11:19:30 08/15/19 24 08/15/2023 COMPL ETE BLOOD COUNT W/DIF F basophils % 0.4 Not Available [facility] [place], [address] 08/15/2023 11:19:30 08/15/19 24 08/15/2023 COMPL ETE BLOOD COUNT W/DIF F immature grans % 0.3 Not Available [address] [place], [address] 08/15/2023 11:19:30 08/15/19 24 08/15/2023 COMPL ETE BLOOD COUNT W/DIF F nucleated RBC 0.0 % Not Available [address] [place], [address] 08/15/2023 11:19:30 08/15/19 24 08/15/2023 COMPL ETE BLOOD COUNT W/DIF F absolute neutrophil count 4.70 10_3/ uL Not Available [address] [place], [address] 08/15/2023 11:19:30 08/15/19 24 08/15/2023 COMPL ETE BLOOD COUNT W/DIF F absolute lymphocyte count 1.63 10_3/ uL Not Available [address] [place], [address] 08/15/2023 11:19:30 08/15/19 24 08/15/2023 COMPL ETE BLOOD COUNT W/DIF F absolute monocyte count 0.32 10_3/ uL Not Available [address] [place], [address] 08/15/2023 11:19:30 08/15/19 24 08/15/2023 COMPL ETE BLOOD COUNT W/DIF F absolute eosinophil count 0.02 10_3/ uL Not Available [address] [place], [address] 08/15/2023 11:19:30 08/15/19 24 08/15/2023 COMPL ETE BLOOD COUNT W/DIF F absolute basophil count 0.03 10_3/ uL Not Available [address] [place], [address] 08/15/2023 11:19:30 08/15/19 24 08/15/2023 COMPR EHENS ANISHA METAB OLIC PANEL calcium 9.3 mg/dL Not Available [address] [place], [address] 08/15/2023 11:34:31 08/15/19 24 08/15/2023 COMPR EHENS ANISHA METAB OLIC PANEL glucose 104 mg/dL Not Available [facility] [address] [place] [address] [place], [address] 08/15/2023 11:34:31 08/15/19 24 08/15/2023 COMPR EHENS ANISHA METAB OLIC PANEL BUN 20 mg/dL Not Available [address] [place], [address] 08/15/2023 11:34:31 08/15/19 24 08/15/2023 COMPR EHENS ANISHA METAB OLIC PANEL creatinine 0.8 mg/dL Not Available [address] [place], [address] 08/15/2023 11:34:31 08/15/19 24 08/15/2023 COMPR EHENS ANISHA METAB OLIC PANEL total protein 8.2 g/dL Not Available [address] [place], [address] 08/15/2023 11:34:31 08/15/19 24 08/15/2023 COMPR EHENS ANISHA METAB OLIC PANEL albumin 4.5 g/dL Not Available [address] [place], [address] 08/15/2023 11:34:31 08/15/19 24 08/15/2023 COMPR EHENS ANISHA METAB OLIC PANEL bilirubin, total 0.9 mg/dL Not Available [address] [place], [address] 08/15/2023 11:34:31 08/15/19 24 08/15/2023 COMPR EHENS ANISHA METAB OLIC PANEL alk phos 92 U/L Not Available [address] [place], [address] 08/15/2023 11:34:31 08/15/19 24 08/15/2023 COMPR EHENS ANISHA METAB OLIC PANEL sodium 140 mmol/ L Not Available [address] [place], [address] 08/15/2023 11:34:31 08/15/19 24 08/15/2023 COMPR EHENS ANISHA METAB OLIC PANEL potassium 3.6 mmol/ L Not Available [address] [place], [address] 08/15/2023 11:34:31 08/15/19 24 08/15/2023 COMPR EHENS ANISHA METAB OLIC PANEL chloride 102 mmol/ L Not Available [address] [place], [address] 08/15/2023 11:34:31 08/15/19 24 08/15/2023 COMPR EHENS ANISHA METAB OLIC PANEL CO2 22.5 mmol/ L Not Available [address] [place], [address] 08/15/2023 11:34:31 08/15/19 24 08/15/2023 COMPR EHENS ANISHA METAB OLIC PANEL anion gap 15.5 mmol/ L Not Available [address] [place], [address] 08/15/2023 11:34:31 08/15/19 24 08/15/2023 COMPR EHENS ANISHA METAB OLIC PANEL AST 14 U/L Not Available [address] [place], [address] 08/15/2023 11:34:31 08/15/19 24 08/15/2023 COMPR EHENS ANISHA METAB OLIC PANEL ALT 20 U/L Not Available [address] [place], [address] 08/15/2023 11:34:31 08/15/19 24 08/15/2023 MAGNE SIUM magnesium 2.0 mg/dL Not Available [address] [place], [address] 08/15/2023 11:34:32 08/15/19 24 08/15/2023 LIPAS E lipase 27 U/L Not Available [address] [place], [address] 08/15/2023 11:34:32 08/15/19 24 08/15/2023 HCG QUAL (SERU M) HCG qual (serum) Negati ve Not Available [address] [place], [address] 08/15/2023 11:55:35 08/15/19 24 08/15/2023 URINA LYSIS color Yellow Not Available [facility] [address] [place], [address] 08/15/2023 12:27:39 08/15/19 24 08/15/2023 URINA LYSIS clarity Sl Cloudy Not Available [address] [place], [address] 08/15/2023 12:27:39 08/15/19 24 08/15/2023 URINA LYSIS specific gravity 1.025 Not Available [address] [place], [address] 08/15/2023 12:27:39 08/15/19 24 08/15/2023 URINA LYSIS pH 6.0 Not Available [facility] [address] [place], [address] 08/15/2023 12:27:39 08/15/19 24 08/15/2023 URINA LYSIS leukocyte esterase Negati ve Not Available [address] [place], [address] 08/15/2023 12:27:39 08/15/19 24 08/15/2023 URINA LYSIS nitrite Negati ve Not Available [address] [place], [address] 08/15/2023 12:27:39 08/15/19 24 08/15/2023 URINA LYSIS protein Negati ve mg/dL Not Available [address] [place], [address] 08/15/2023 12:27:39 08/15/19 24 08/15/2023 URINA LYSIS glucose Negati ve mg/dL Not Available [address] [place], [address] 08/15/2023 12:27:39 08/15/19 08/15/2023 URINA LYSIS ketones >=160 mg/dL Not Available [address] [place], [address] 08/15/2023 12:27:39 08/15/19 24 08/15/2023 URINA LYSIS urobilinogen 1.0 mg/dL Not Available [address] [place], [address] 08/15/2023 12:27:39 08/15/19 24 08/15/2023 URINA LYSIS bilirubin Small Not Available [address] [place], [address] 08/15/2023 12:27:39 08/15/19 24 08/15/2023 URINA LYSIS blood Negati ve Not Available [address] [place], [address] 08/15/2023 12:27:39 09/18/19 24 09/18/2023 URINA LYSIS color Yellow Not Available [address] [place], [address] 09/18/2023 18:56:22 09/18/19 24 09/18/2023 URINA LYSIS clarity Clear Not Available [address] [place], [address] 09/18/2023 18:56:22 09/18/19 24 09/18/2023 URINA LYSIS specific gravity 1.015 Not Available [address] [place], [address] 09/18/2023 18:56:22 09/18/19 24 09/18/2023 URINA LYSIS pH 7.0 Not Available [address] [place], [address] 09/18/2023 18:56:22 09/18/19 24 09/18/2023 URINA LYSIS leukocyte esterase Negati ve Not Available [address] [place], [address] 09/18/2023 18:56:22 09/18/19 24 09/18/2023 URINA LYSIS nitrite Negati ve Not Available [address] [place], [address] 09/18/2023 18:56:22 09/18/19 24 09/18/2023 URINA LYSIS protein Negati ve mg/dL Not Available [address] [place], [address] 09/18/2023 18:56:22 09/18/19 24 09/18/2023 URINA LYSIS glucose Negati ve mg/dL Not Available [address] [place], [address] 09/18/2023 18:56:22 09/18/19 24 09/18/2023 URINA LYSIS ketones Negati ve mg/dL Not Available [address] [place], [address] 09/18/2023 18:56:22 09/18/19 24 09/18/2023 URINA LYSIS urobilinogen 0.2 mg/dL Not Available [address] [place], [address] 09/18/2023 18:56:22 09/18/19 24 09/18/2023 URINA LYSIS bilirubin Negati ve Not Available [address] [place], [address] 09/18/2023 18:56:22 09/18/19 24 09/18/2023 URINA LYSIS blood Negati ve Not Available [address] [place], [address] 09/18/2023 18:56:22 10/02/19 24 10/02/2023 URINA LYSIS color Yellow Not Available [facility] [address] [place], [address] 10/02/2023 20:59:48 10/02/19 24 10/02/2023 URINA LYSIS clarity Clear Not Available [facility] [address] [place], [address] 10/02/2023 20:59:48 10/02/19 24 10/02/2023 URINA LYSIS specific gravity 1.015 Not Available [address] [place], [address] 10/02/2023 20:59:48 10/02/19 24 10/02/2023 URINA LYSIS pH 7.0 Not Available [address] [place], [address] 10/02/2023 20:59:48 10/02/19 24 10/02/2023 URINA LYSIS leukocyte esterase Negati ve Not Available [address] [place], [address] 10/02/2023 20:59:48 10/02/19 24 10/02/2023 URINA LYSIS nitrite Negati ve Not Available [address] [place], [address] 10/02/2023 20:59:48 10/02/19 24 10/02/2023 URINA LYSIS protein Negati ve mg/dL Not Available [address] [place], [address] 10/02/2023 20:59:48 10/02/19 24 10/02/2023 URINA LYSIS glucose Negati ve mg/dL Not Available [address] [place], [address] 10/02/2023 20:59:48 10/02/19 24 10/02/2023 URINA LYSIS ketones Negati ve mg/dL Not Available [address] [place], [address] 10/02/2023 20:59:48 10/02/19 24 10/02/2023 URINA LYSIS urobilinogen 0.2 mg/dL Not Available [address] [place], [address] 10/02/2023 20:59:48 10/02/19 24 10/02/2023 URINA LYSIS bilirubin Negati ve Not Available [address] [place], [address] 10/02/2023 20:59:48 10/02/19 24 10/02/2023 URINA LYSIS blood Negati ve Not Available [address] [place], [address] 10/02/2023 20:59:48 06/07/10/02/2023 URINE DRUG SCREE N ([facility] ) methadone Negati ve negtat anisha Not Available [address] [place], [address] 10/02/2023 21:13:43 10/02/19 24 10/02/2023 URINE DRUG SCREE N ([facility] ) benzodiazepi jose guadalupe Negati ve negati ve Not Available [address] [place], [address] 10/02/2023 21:13:43 10/02/19 24 10/02/2023 URINE DRUG SCREE N ([facility] ) cocaine Negati ve negati ve Not Available [address] [place], [address] 10/02/2023 21:13:43 10/02/19 24 10/02/2023 URINE DRUG SCREE N ([facility] ) amphetamines Negati ve negati ve Not Available [address] [place], [address] 10/02/2023 21:13:43 10/02/19 24 10/02/2023 URINE DRUG SCREE N ([facility] ) tetrahydroca nnabinol Positi ve negati ve abnormal Not Available [address] [place], [address] 10/02/2023 21:13:43 10/02/19 24 10/02/2023 URINE DRUG SCREE N ([facility] ) opiates Negati ve negati ve Not Available [address] [place], [address] 10/02/2023 21:13:43 10/02/19 24 10/02/2023 URINE DRUG SCREE N ([facility] ) barbiturates Negati ve negati ve Not Available [address] [place], [address] 10/02/2023 21:13:43 10/02/19 24 10/02/2023 URINE DRUG SCREE N ([facility] ) tricyclic antidepressa nts Negati ve negtiv e Not Available [address] [place], [address] 10/02/2023 21:13:43 10/02/19 24 10/02/2023 COMPL ETE BLOOD COUNT W/DIF F WBC 8.67 10_3/ uL Not Available [address] [place], [address] 10/02/2023 21:22:44 10/02/19 24 10/02/2023 COMPL ETE BLOOD COUNT W/DIF F RBC 4.76 10_6/ uL Not Available [address] [place], [address] 10/02/2023 21:22:44 10/02/19 24 10/02/2023 COMPL ETE BLOOD COUNT W/DIF F HGB 14.6 g/dL Not Available [address] [place], [address] 10/02/2023 21:22:44 10/02/19 24 10/02/2023 COMPL ETE BLOOD COUNT W/DIF F HCT 42.8 % Not Available [address] [place], [address] 10/02/2023 21:22:44 10/02/19 24 10/02/2023 COMPL ETE BLOOD COUNT W/DIF F MCV 90 fL Not Available [address] [place], [address] 10/02/2023 21:22:44 10/02/19 24 10/02/2023 COMPL ETE BLOOD COUNT W/DIF F MCH 30.7 pg Not Available [address] [place], [address] 10/02/2023 21:22:44 10/02/19 24 10/02/2023 COMPL ETE BLOOD COUNT W/DIF F MCHC 34.1 % Not Available [address] [place], [address] 10/02/2023 21:22:44 10/02/19 24 10/02/2023 COMPL ETE BLOOD COUNT W/DIF F RDW 12.8 % Not Available [address] [place], [address] 10/02/2023 21:22:44 10/02/19 24 10/02/2023 COMPL ETE BLOOD COUNT W/DIF F platelet count 271 10_3/ uL Not Available [address] [place], [address] 10/02/2023 21:22:44 10/02/19 24 10/02/2023 COMPL ETE BLOOD COUNT W/DIF F MPV 10.6 fL Not Available [address] [place], [address] 10/02/2023 21:22:44 10/02/19 24 10/02/2023 COMPL ETE BLOOD COUNT W/DIF F neutrophils % 83.6 % Not Available [address] [place], [address] 10/02/2023 21:22:44 10/02/19 24 10/02/2023 COMPL ETE BLOOD COUNT W/DIF F lymphocytes % 12.0 % Not Available [address] [place], [address] 10/02/2023 21:22:44 10/02/19 24 10/02/2023 COMPL ETE BLOOD COUNT W/DIF F monocytes % 3.8 % Not Available [address] [place], [address] 10/02/2023 21:22:44 10/02/19 24 10/02/2023 COMPL ETE BLOOD COUNT W/DIF F eosinophils % 0.1 % Not Available [address] [place], [address] 10/02/2023 21:22:44 10/02/19 24 10/02/2023 COMPL ETE BLOOD COUNT W/DIF F basophils % 0.3 % Not Available [address] [place], [address] 10/02/2023 21:22:44 10/02/19 24 10/02/2023 COMPL ETE BLOOD COUNT W/DIF F immature grans % 0.2 % Not Available [address] [place], [address] 10/02/2023 21:22:44 10/02/19 24 10/02/2023 COMPL ETE BLOOD COUNT W/DIF F nucleated RBC 0.0 % Not Available [address] [place], [address] 10/02/2023 21:22:44 10/02/19 24 10/02/2023 COMPL ETE BLOOD COUNT W/DIF F absolute neutrophil count 7.24 10_3/ uL Not Available [address] [place], [address] 10/02/2023 21:22:44 10/02/19 24 10/02/2023 COMPL ETE BLOOD COUNT W/DIF F absolute lymphocyte count 1.04 10_3/ uL Not Available [address] [place], [address] 10/02/2023 21:22:44 10/02/19 24 10/02/2023 COMPL ETE BLOOD COUNT W/DIF F absolute monocyte count 0.33 10_3/ uL Not Available [address] [place], [address] 10/02/2023 21:22:44 10/02/19 24 10/02/2023 COMPL ETE BLOOD COUNT W/DIF F absolute eosinophil count 0.01 10_3/ uL Not Available [address] [place], [address] 10/02/2023 21:22:44 10/02/19 24 10/02/2023 COMPL ETE BLOOD COUNT W/DIF F absolute basophil count 0.03 10_3/ uL Not Available [address] [place], [address] 10/02/2023 21:22:44 10/02/19 24 10/02/2023 ACETA MINOP HEN acetaminophe n < 2 ug/mL Not Available [address] [place], [address] 10/02/2023 21:38:45 10/02/19 24 10/02/2023 SALIC YLATE salicylate < 2.8 mg/dL Not Available [address] [place], [address] 10/02/2023 21:38:46 10/02/19 24 10/02/2023 COMPR EHENS ANISHA METAB OLIC PANEL calcium 9.1 mg/dL Not Available [address] [place], [address] 10/02/2023 22:15:48 10/02/19 24 10/02/2023 COMPR EHENS ANISHA METAB OLIC PANEL glucose 113 mg/dL Not Available [address] [place], [address] 10/02/2023 22:15:48 10/02/19 24 10/02/2023 COMPR EHENS ANISHA METAB OLIC PANEL BUN 7 mg/dL Not Available [address] [place], [address] 10/02/2023 22:15:48 10/02/19 24 10/02/2023 COMPR EHENS ANISHA METAB OLIC PANEL creatinine 0.9 mg/dL Not Available [address] [place], [address] 10/02/2023 22:15:48 10/02/19 24 10/02/2023 COMPR EHENS ANISHA METAB OLIC PANEL total protein 7.5 g/dL Not Available [address] [place], [address] 10/02/2023 22:15:48 10/02/19 24 10/02/2023 COMPR EHENS ANISHA METAB OLIC PANEL albumin 4.1 g/dL Not Available [address] [place], [address] 10/02/2023 22:15:48 10/02/19 24 10/02/2023 COMPR EHENS ANISHA METAB OLIC PANEL bilirubin, total 0.4 mg/dL Not Available [address] [place], [address] 10/02/2023 22:15:48 10/02/19 24 10/02/2023 COMPR EHENS ANISHA METAB OLIC PANEL alk phos 90 U/L Not Available [address] [place], [address] 10/02/2023 22:15:48 10/02/19 24 10/02/2023 COMPR EHENS ANISHA METAB OLIC PANEL sodium 141 mmol/ L Not Available [address] [place], [address] 10/02/2023 22:15:48 10/02/19 24 10/02/2023 COMPR EHENS ANISHA METAB OLIC PANEL potassium 3.5 mmol/ L Not Available [address] [place], [address] 10/02/2023 22:15:48 10/02/19 24 10/02/2023 COMPR EHENS ANISHA METAB OLIC PANEL chloride 104 mmol/ L Not Available [address] [place], [address] 10/02/2023 22:15:48 10/02/19 24 10/02/2023 COMPR EHENS ANISHA METAB OLIC PANEL CO2 25.0 mmol/ L Not Available [address] [place], [address] 10/02/2023 22:15:48 10/02/19 24 10/02/2023 COMPR EHENS ANISHA METAB OLIC PANEL anion gap 12.0 mmol/ L Not Available [address] [place], [address] 10/02/2023 22:15:48 10/02/19 24 10/02/2023 COMPR EHENS ANISHA METAB OLIC PANEL AST 10 U/L Not Available [address] [place], [address] 10/02/2023 22:15:48 10/02/19 24 10/02/2023 COMPR EHENS ANISHA METAB OLIC PANEL ALT 20 U/L Not Available [address] [place], [address] 10/02/2023 22:15:48 10/02/19 24 10/02/2023 TSH (W/RE F FT4) TSH (w/ref FT4) 4.87 uIU/m L 0.36-3 .74 high Not Available [address] [place], [address] 10/02/2023 21:58:47 10/02/19 24 10/02/2023 ETHYL ALCOH OL ethyl alcohol < 3.0 mg/dL Not Available [place] [id number] [facility] [place], [address] 10/02/2023 22:15:48 10/02/19 24 10/02/2023 TSH (W/RE F FT4) TSH (w/ref FT4) 4.87 uIU/m L 0.36-3 .74 high Not Available [address] [place], [address] 10/02/2023 22:15:49 10/02/19 24 10/02/2023 FREE T4 free T4 0.84 NG/dL Not Available [facility] [address] [place], [address] 10/02/2023 22:15:49 10/23/19 24 10/23/2023 TSH (W/RE F FT4) TSH (w/ref FT4) 1.89 uIU/m L 0.36-3 .74 normal Not Available [facility] (Registration ) [address] [place] [address] [place], [address], 10/23/2023 21:54:46 06/03/19 24 06/03/2023 ED visit note ED Visit Note EMMANUEL Roche NAME: David Madrigal UNIT #: [id number] ADMITT ING PROVID ER: Sabrina Carbajal PAIN MANAGEMENT NURSE ACCOUN T #: [id number] PRIMAR Y CARE PROVID ER: LAVELL BRADFORD MD DATE OF ADMIT: : 2000 HPI Genera l Mode of arriva l: ambula tory . Date/T mariah Provid er Initia kiya Docume ntatio n: 18:57 . Limita tions to Docume ntatio n: no limita tions . Inform ation obtain ed by: emmanuel roche, RN notes review ed and old record s review ed . HPI Narrat anisha: 22-yea r-old female presen ts to the ER with a chief compla int of suicid al ideati on for the last week. She does have a histor y of major depres sive disord er, PTSD, OCD and states that she wants to take all of her medica tions . She does endors e mariju traci and occasi onal alcoho l she report s drinki ng 2-3 beers or drinks a few days ago. She report s chroni c nausea vomiti ng. She is slight ly clammy , slight ly tachyc ardic with a pulse of 107 hypert ensive with blood pressu re 127/10 1. She is guarde d and avoids eye contac t seems calm and aamir ative and answer s all my questi ons. She denies doing anythi ng to hersmarjorie f recent ly to hurt hersmarjorie f. She does have a histor y of undisc losed self harm, none recent . Relate d Data Home Medica tions Medica tion Instru ctions Record ed Confir med docusa te sodium 100 mg capsul e 100 mg PO BID duloxe silverio 40 mg capsul e,katty yed 40 mg PO DAILY releas e sprink le guanfa cine 1 mg tablet 1 mg PO DAILY hydrox yzine HCl 25 mg tablet 25 mg PO BID meloxi cam 15 mg tablet 15 mg PO DAILY mirtaz apine 15 mg tablet 15 mg PO DAILY naltre xone 50 mg tablet 50 mg PO DAILY Allerg ies Allerg y/AdvR eac Type Severi ty Reacti on Status Date / Time No Known Allerg ies Allerg y Unveri fied 19:48 Genera l Stated Compla int: PsychE taylor CIERA: 2 Review of System s All system s review ed are unrema rkable except as noted in HPI and below Consti tution al Consti tution al: Denies fever( s) and Denies headac he(s) ENT Ears, Nose, Mouth, and Throat : Denies headac he(s) Gastro intest inal Gastro intest inal: Report s diarrh ea (Patie nt report s chroni c) and Report s nausea (Patie nt report s chroni c) Neurol ogic Neurol ogic: Denies headac he(s) Psychi atric Psychi atric: Report s as per HPI, Report s depres pat and Report s suicid al ideati on Exam Narrat anisha Exam Narrat anisha: José jenkins al: Alert and orient ed x3. Appear s stated age. Normal body habitu s. Dishev eled, smells of body odor, slight ly clammy . Head: Normoc ephali c, no trauma . Eyes: Pupils PERRL, Red reflex noted, EOM's intact . Eyelid s symmet rical withou t lesion s, discha rge, or swelli ng. Chest: RRR, Normal S1, S2, distal pulses intact . Resp: Lungs clear to auscul tation bilate rally, no wheeze s, rales, or rhonch i. Abdome n: Soft, non-di stende d, Normoa ctive bowel sounds all 4 quads. Muscul oskele william: Normal gait, 5/5 streng th to all four extrem ities. Skin: No suspic ious rashes or lesion s. Capill carlos refill less than 2 sec. Neurol ogic: Crania l nerves II-XII intact . Alert and orient ed x 3. Motor: No defici ts noted. Sensor y: Intact bilate rally all 4 extrem ities. Reflex es: DTR's intact bilate rally. . Hemato logic/ Lympha tic: No ecchym osis, no lympha denopa thy. Psych: See below. Psych Appear ance: dishev eled Speech and Moveme nt: speech and moveme nt normal and slowed moveme nt Mood: anxiou s mood Affect : labile affect and blunte d Attitu de: aamir ative Though t Proces s: normal Though t Conten t: suicid ality Insigh t: insigh t good Judgme nt: judgme nt good Course Vital Signs Vital signs: Vital Signs Temper ature 36.4 C 18:53 Pulse 107 18:53 Respir atory Rate 22 18:53 Blood Pressu re 127/10 1 18:53 Pulse Oximet ry 98 18:53 Temper ature 36.4 C 18:53 Temper ature Source Tympan ic 18:53 Pulse 107 18:53 Respir atory Rate 22 18:53 Blood Pressu re 127/10 1 18:53 Pulse Oximet ry 98 18:53 Oxygen Delive ry Method Room Air 18:53 Oxygen Flow Rate 0 18:53 Lab/Te st Result s Lab/Te st Result s: POC-Pr egnanc y Test(u rine) Negati ve Medica l Decisi on Making 22-yea r-old female presen ts to the ER with a chief compla int of suicid al ideati on for the last week. She does have a histor y of major depres sive disord er, PTSD, OCD and states that she wants to take all of her medica tions . She does endors e mariju traci and occasi onal alcoho l she report s drinki ng 2-3 beers or drinks a few days ago. She report s chroni c nausea vomiti ng. She is slight ly clammy , slight ly tachyc ardic with a pulse of 107 hypert ensive with blood pressu re 127/10 1. She is guarde d and avoids eye contac t seems calm and aamir ative and answer s all my questi ons. She denies doing anythi ng to hersel f recent ly to hurt hersel f. She does have a histor y of undisc losed self harm, none recent . Emmanuel roche does not qualif y for smart medica l cleara nce form due to her vital signs, workup ordere d includ ing CBC CMP TSH, urinal ysis UDS urine pregna ncy. 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 Emmanuel roche medica lly cleare d. Labs are noted below. 2106: Hamzah knight with ARNAV report s they are seekin g volunt carlos inpati ent [facility] ent for suicid al ideati on. Emmanuel roche does have a plan. Will place her daily medica tions diet vital signs. Care is to be handed off to oncprashanth ratliff provid er Dr. Jaswinder rubio sissy, emmanuel roche has remain ed hemody namica lly stable , aamir ative throug hout the remain arnel of her stay. She did receiv e her p.m. medica tions. Orders placed . Lab Data Lab result s review ed: Yes I review ed the patien t's lab result s. Labs: Deenafanny daynajuan jose Tests Range/ Units 18:38 19:20 WBC 10 3/uL 4.01 RBC 10 6/uL 4.82 Hgb g/dL 14.7 Hct % 42.2 MCV fL 88 MCH pg 30.5 MCHC % 34.8 RDW % 12.7 Plt Count 10 3/uL 242 MPV fL 10.3 Immatu re Gran % 0.2 Neutro phils % 43.9 Lympho cytes % 38.4 Monocy katie % 17.0 Eosino phils % 0.0 Basoph ils % 0.5 Nuclea kiya RBC % % 0.0 Absolu te Neutro phils 10 3/uL 1.76 Absolu te Lympho cytes 10 3/uL 1.54 Absolu te Monocy katie 10 3/uL 0.68 Absolu te Eosino phils 10 3/uL 0.00 Absolu te Basoph ils 10 3/uL 0.02 Sodium mmol/L 139 Potass ium mmol/L 3.5 Chlori de mmol/L 101 Carbon Dioxid e mmol/L 26.8 Anion Gap mmol/L 11.2 BUN mg/dL 7 Creati nine mg/dL 0.8 Est GFR (CKD-E PI 2020) Not Applic able Glucos e mg/dL 94 Calciu m mg/dL 9.2 Total Biliru bin mg/dL 0.6 AST U/L 12 ALT U/L 18 Alkali ne Phosph atase U/L 79 Total Protei n g/dL 8.0 Albumi n g/dL 4.1 TSH uIU/mL 4.12 Urine Color Yellow Urine Clarit y Clear Urine pH 6.5 Ur Specif ic Gravit y 1.025 Urine Protei n mg/dL Trace Urine Ketone s mg/dL 40 Urine Blood Negati ve Urine Nitrit e Negati ve Urine Biliru bin Small Urine Urobil inogen mg/dL 1.0 Ur Leukoc yte Estera se Negati ve Urine Glucos e mg/dL Negati ve Salicy lates mg/dL < 2.8 Urine Opiate s Screen (Negat anisha) Negati ve Urine Methad one Screen (Negta tive) Negati ve Acetam inophe n ug/mL < 2 Ur Barbit urates Screen (Negat anisha) Negati ve Ur Tricyc lics Screen (Negti ve) Negati ve Ur Amphet amines Screen (Negat anisha) Negati ve U Benzod iazepi jose guadalupe Scrn (Negat anisha) Negati ve Urine Cocain e Screen (Negat anisha) Negati ve Ur THC Screen (Negat anisha) Positi ve A Ethyl Alcoho l mg/dL < 3.0 Qualit y:SDOH Health Relate d Social Needs: No Data to Displa y PFSH All Active Proble ms (Updat ed @ 19:11 by Maritza pollock NP) Korey Petty s syndro me (Acute ) OCD (obses sive compul sive disord er) (Acute ) Major depres pat (Chron ic) PTSD (post- trauma tic stress disord er) (Acute ) Social Histor y (Revie wed @ 19:10 by Maritza pollock, BINTA) Mallory aguillon risk assess ment perfor med?: No Female Reprod uctive Histor y Menstr ual contro l method : implan kiya (Nexpl anon) Discha rge Plan Discha rge Detail s Chief Compla int: PsychE taylor Primar y Care Provid er: Lavell Bradford ED Provid er: Sabrina Carbajal Home Meds and New Rx's Prescr iption s: No Action duloxe silverio 40 mg capsul e, delaye d rel sprink le 40 mg PO DAILY mirtaz apine 15 mg tablet 15 mg PO DAILY guanfa cine 1 mg tablet 1 mg PO DAILY meloxi cam 15 mg tablet 15 mg PO DAILY docusa te sodium 100 mg capsul e 100 mg PO BID naltre xone 50 mg tablet 50 mg PO DAILY hydrox yzine HCl 25 mg tablet 25 mg PO BID cc: LAVELL BRADFORD MD ------ ------ ------ ------ ------ ------ ------ ------ ------ ------ ------ --- Dictat ed by: BRIAN POLLOCK SABRINA JUDD Dictat ed: Time: 12 09 Date: 2306 Date: Date: Transc ribed Date: Transc ribed Time: 1904 By: ARIANNE Obando This is privil eged, confid ential inform ation, intend ed only for the provid er named. Any use or distri bution by any person other than this provid er is strict ly prohib ited. If you receiv e this report in error, please notify us immedi nathanielly at and return the origin al report to us at the addres s above. Thank you. [facility] [address] [place], [address] 06/04/2023 08:13:55 06/04/19 24 06/04/2023 calderon navarro note Mental Health Crisis Note EMMANUEL Roche NAME: David Madrigal UNIT #: [id number] ADMITT ING PROVID ER: Avelina Bishop ACCOUN T #: [id number] PRIMAR Y CARE PROVID ER: LAVELL BRADFORD MD DATE OF ADMIT: : 2000 Date of servic e: Time of Servic e: 20:40 PHQ-9 Over the last 2 weeks, how often have you been bother ed by any of the follow ing proble ms? 1. Little intere st or pleasu re in doing things : nearly every day 2. Feelin g down, depres sed, or hopele ss: nearly every day 3. Troubl e fallin g or stayin g asleep , or sleepi ng too much: nearly every day 4. Feelin g tired or having little energy : nearly every day 5. Poor appeti te or overea ting: nearly every day 6. Feelin g bad about yourse lf - or that you are a failur e or have let yourse lf and your family down: nearly every day 7. Troubl e concen tratin g on things , such as readin g the newspa per or watchi ng televi pat: nearly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 consistent outdoor exercise. Fitness Monitoring - She uses a fitness tracker to monitor her heart rate, which helps prevent full fainting episodes, though she still experiences presyncope symptoms. MD [address], [place], [address], [facility]. 12/17/2023 09:46:11 OBGyn Episode No OBEpisode recorded.
--- OUTSIDE RECORDS SUMMARY | 2023-12-17 14:54 | XMS_ITS | Continuity of Care Document ---
Author Organization [place] [facility], [facility] Address [address] [place] [address] Care Team Providers Care Clinical Appeals Auditor Name Role Phone ALLY BRADFORD Primary Care Provider [phone] [facility] Psychiatrist ELDA LANG Community Health Worker Assessment Encounter Date Assessment Date Assessment LastModified by Organization Details LastModified Time 12/17/2023 12/17/2023 Izabel reports improvement in symptoms [...] Follow-up for the pessary is scheduled for eoleson Not available 12/17/2023 09:17:24 Plan of [...] Not available Not available Not available Lab vitamin D, 25-hydrox y, total, serum - 1 tiger top drawn in office-SN 2023 024 [email or web address] [facility] (Registration ), [address] [place] [address] , [place], [address], 12/17/2023 09:26:44 iron + TIBC + ferritin, serum 2023 024 [email or web address] [facility] (Registration ), [address] [place] [address] [place], [address], 12/17/2023 09:26:45 Referral None recorded. Procedures None recorded. Surgeries None recorded. Imaging None recorded. Medication Orders None recorded. Patient TargetsNo targets recorded. Patient Instructions Encounter Date Encounter Id Patient Instructions Last Modified By Organization Details Last Modified Time 12/17/2023 [id number] Dear Mike Paiz nk you for visiting [...] have any questions or concerns. Warm regards, MD moses Skinner Not available 12/17/2023 09:06:56 Reason for Referral Psychologist Referral for Au tism spectrum disorder would like to explore a possible diagnosis of autism Referring Physician: Ally Bradford, Family Medicine, Encounter Date: 04/02/2023 Construction Sales Representative Referral for Ch ronic pelvic pain of female Referring Physician: Ally Bradford, Family Medicine, Encounter Date: 04/02/2023 Problems Name Status Onset Date Resolution Date Notes Provider Name and Address Organization Details Recorded Time Repeat prescription monitoring Active 12/11/19 Sheyla Zuleta null, [facility] 08/26/2023 15:25:41 Mixed anxiety and depressive disorder Active 03/26/20 WILBER TAVERAS RN null, [facility] 03/26/2023 08:00:59 Pain in lower limb Active 03/26/20 23 WILBER TAVERAS RN null, [facility] 03/26/2023 08:01:12 Dysmenorrhea Active 03/26/20 23 WILBER TAVERAS RN null, [facility] 03/26/2023 08:01:29 Posttraumatic stress disorder Active 04/02/20 23 WILBER TAVERAS RN null, [facility] 04/02/2023 09:33:12 Alcoholism Active 04/02/20 23 WILBER TAVERAS RN null, [facility] 04/02/2023 09:33:27 Irritable bowel syndrome Active 04/02/20 WILBER TAVERAS RN null, [facility] 04/02/2023 09:33:41 Chronic interstitial cystitis Active 04/02/20 WILBER TAVERAS RN null, [facility]. 04/02/2023 09:34:17 Autism spectrum disorder Active 04/02/[address], [place], [address] , [facility] 04/05/2023 14:09:06 Chronic pelvic pain of female Active 04/02/[address], [place], [address] , [facility] 04/02/2023 14:22:52 Hypermobile Korey-Danlos syndrome Active 04/05/20 ALLY BRADFORD MD [address], [place], [address] , [facility] 04/05/2023 14:11:53 Orthostatic hypotension Active 04/05/20 ALLY BRADFORD MD [address], [place], [address] , [facility] 04/05/2023 14:31:02 Irritable bowel syndrome with diarrhea Active 02/06/20 23 Bernarda Susie null, [facility]. 07/26/2023 18:08:13 Slow transit constipation Active 02/06/20 Bernarda Susie null, [facility] 07/26/2023 18:08:26 Alcohol dependence Active 02/06/20 Bernarda Susie null, [facility] 07/26/2023 18:07:27 Recurrent major depression Active 02/06/20 Bernarda Susie null, [facility] 07/26/2023 18:08:21 Chronic pain Active 02/27/20 23 Bernarda Susie null, [facility] 07/26/2023 18:08:01 Muscle spasm of cervical muscle of neck Active 07/29/19 24 Sheyla Seibold null, [facility]. 08/26/2023 15:25:48 Hemorrhoids Active 07/29/19 24 Sheyla Seibold null, [facility]. 08/26/2023 15:25:46 Overactive urinary bladder Active 09/03/19 24 JONO SOTO MA null, [facility]. 09/03/2023 09:48:23 Chronic constipation Active 09/03/19 24 JONO SOTO MA null, [facility]. 09/03/2023 09:48:59 Pain in pelvis Active 09/11/[address], [place], [address] , [facility] 09/11/2023 12:02:25 Irregular intermenstrual bleeding Active 10/23/[address], [facility] [address] , [facility] 10/23/2023 14:10:57 Congenital pes planus Active 10/23/[address], [facility] [address] , [facility] 10/23/2023 20:49:20 Fatigue Active 12/17/[address], [facility] [address] , [facility] 12/17/2023 08:49:46 Problem Notes None recorded. Procedures Surgical History Date Name Laterality Status Provider Name and Address Organization Details Recorded Time Date of Last Pap Smear completed WILBER TAVERAS RN [facility] 04/02/2023 13:26:31 extraction of wisdom tooth completed JONO SOTO MA [facility], [facility] 06/29/2023 08:18:51 Imaging Results None recorded. Procedure Notes None recorded. Medical Equipment None Reported. Allergies Allergen ID Allergen Name Allergen Category Reaction Reaction Severity Criticality Documentation Date Start Date Code Code System Note Provider Name and Address Organization Details Recorded Time 01127 droperido l medicatio n Not available Not available high 09/10/2023 3648 RxNorm akath isia MD [address], [facility] [address], [facility] 14:53:29 Medications Name Sig Start Date Stop [...] Last Updated DateTime 172.72 cm 25.8 kg/m2 96442.7 g 97.9 [degF] 98 % 98 % 98 /min 118 mm[Hg] 78 mm[Hg] JONO SOTO MA [facility] 08:27:30 Social History Question Answer Notes LastModified by Organizat ion Details LastModified Time Tobacco Smoking Status Never Smoker Smokes marijuana . JONO SOTO MA [facility], [facility], [facility] 09/10/2023 14:18:58 Date Care Plan Printed: 07/29/2023 Information not available 07/29/2023 Assigned Volunteer Services Director: Daina [email or web address] Information not available 07/29/2023 Is [facility] The Lead Volunteer Services Director? Yes Information no t available 07/29/2023 Level Of Intensity: Quarterly Information not available 07/29/2023 Team Based Care: Yes Informat ion not available 07/29/2023 Social Barrier Yes Informatio n not available 07/29/2023 Learning Barrier Yes Informat ion not available 07/29/2023 Last Care Team Meeting 07/29/2023 Information not available 07/29/2023 Transportation Barrier Yes Information not available 07/29/2023 Community Refrigerating Engineer Yes Information not available 07/29/2023 Food Resources [...] Time Tdap 03/14/2018 completed Not Available [facility] 05:31:25 Influenza, split virus, quadrivalent, PF 02/26/2023 completed Not Available [facility] 05/08/2023 05:31:25 SARS-COV-2 (COVID-19) vaccine, UNSPECIFIED 12/06/2020 completed Not Available [facility] 05/08/2023 05:31:25 SARS-COV-2 (COVID-19) vaccine, UNSPECIFIED 12/28/2020 completed Not Available [facility] 05/08/2023 05:31:26 COVID-19, mRNA, LNP-S, PF, zeina-sucrose, 30 mcg/0.3 mL 02/26/2023 completed Not Available [facility] 05/08/2023 05:31:26 Past Encounters Encounter ID Performer Location Encounter Start Date Encounter Closed Date Diagnosis/Indication Diagnosis SNOMED-CT Code [id number] ALLY BRADFORD MD [address] [address] 12/17/2023 08:14:57 12/17/2023 09:33:00 Congenital pes planus 05927932 Fatigue 25925787 Hypermobil e Korey-Danlos syndrome 05214645 Chronic pe lvic pain of female 087787465 Goals Section Goal Description Status Start Date LastModified by Organization Details LastModified Time Pt will get Disability None Recorded Goal not achieved 024 ELDA LANG Information not available 07/29/2023 18:46:09 Pt will get a job appropriate for her None Recorded Goal not achieved 024 DAINA MANN Information not available 07/29/2023 15:36:16 Health Concerns Section Related Observation LastModified by Organization Detai ls LastModified Time None Recorded Concern Status LastModified by Organization Details LastModified Time None Recorded Payers Encounter Date Sequence Insurance Name Policy Number Policy Zabala Covered Member ID Zabala Member ID Guarantor Name 12/17/2023 1 [facility] (MEDICAID) Izabel Madrigal [id number] Izabel Madrigal Notes Date Note Type Note Provider Name and Address Organization Details Recorded Time 12/17/2023 text/html HPI Notes: Pessa ry Use [...] increased pain during activity without proper support. Yhwl-xkk-bmbeuzb shoe inserts were tried but found to [...] episodes, though she still experiences presyncope symptoms. ALLY BRADFORD MD [address], [place], [address], [place] [facility]. 12/17/2023 09:46:11 OBGyn Episode No OBEpisode recorded.
--- OUTSIDE RECORDS SUMMARY | 2023-12-17 14:54 | XMS_ITS | Encounter Summary ---
Author Organization [facility] [place] [address] Care Team Providers Care Chart Collector Name Role Phone Unavailable Primary Care Provider Unavailabl e Encounter Details Date Type Department Care Team (Late Contact Info) Description 06/16/2023 Telephone Obstetrics [place] [address] Janee Hoang Social History Tobacco Use Types Packs/Day Years Used Date Smoking Tobacco: Never Assessed Sex and Gender Information Value Date Recorded Sex Assigned at Not on file Gender Identity Not on file Sexual Orientation Not on file documented as of this encounter Miscellaneous Notes * Telephone Encounter - Janee Hoang - 06/16/2023 2:37 PM EST Attempted to schedule appointment from change control analyst referral. Unable to leave voicemail due to message saying this person isn't accepting calls. documented in this encounter Plan of Treatment Upcoming Encounters Date Type Department Care Team (Late Contact Info) Description 02/05/2024 2:30 PM EDT Scheduled View Only Obstetrics [place] [address] Nurse, Grecia MCLAUGHLIN, RN 02/05/2024 3:00 PM EDT Office Visit Obstetrics [place] [address] Jeane Quiñonez MD [facility] UROGYNECOLOGY [place], [place] [id number] documented as of this encounter Visit Diagnoses Not on filedocumented in this encounter
--- OUTSIDE RECORDS SUMMARY | 2023-12-17 14:54 | XMS_ITS | Encounter Summary ---
Author Organization Count Includes [facility] Address [facility] [place] [address] Care Team Providers Care Urologic Surgeon Name Role Phone Ally Bradford MD Primary Care Provider Encounter Details Date Type Department Care Team (Latest Contact Info) Description 12/01/2023 Travel Social History Tobacco Use Types Packs/Day [...] Scheduled View Only Obstetrics and Gynecology at [place] [phone] Nurse, Grecia MCLAUGHLIN RN 02/05/2024 3:00 PM EDT Office Visit Obstetrics [place] [address] Jeane Quiñonez MD [facility] [place] [address] documented as of this encounter Visit Diagnoses Not on filedocumented in this encounter Care Teams Urologic Surgeon Relationship Specialty Start Date End Date Ally Bradford MD [address] [place] [address] PCP - General Family Medicine 09/01/23 documented as of this encounter
[2023-12-17 15:51] LABS: Ferritin 25 ng/mL (8-252); Vitamin D 25 Total 18.1 ng/mL (30-100)
[2023-12-17 16:09] LABS: Iron 64 ug/dL (50-170); Total Iron Binding Capacity 331 ug/dL (250-450); Transferrin Sat 19 % (15-50)
== END 2023-12-17 14:53 | disposition home or self-care (01) ==
LOC: NCHCN 14:52
PROVIDERS: PCP Family Medicine; Visit Provider Family Medicine
DX: R53.83 Other fatigue (principal)
CPT/HCPCS: 82306; 82728; 83540; 83550

== ENCOUNTER 2024-05-11 18:26 | Emergency (ER) | payer MEDICAID, SELFPAY ==
[2024-05-11 18:29] VITALS: BP 147/90; PULSE 107; RESP 22; TEMP 36.4; O2SAT 98
--- OUTSIDE RECORDS SUMMARY | 2024-05-11 18:38 | XMS_ITS | Data Portability ---
Author Organization [facility], [facility] [place] [address] Care Team Providers Care Specialist Managers Name Role Phone ALLY BRADFORD Primary Care Provider [facility] OTHER [facility] Psychiatrist ELDA LANG [facility] [...] Follow-up for the pessary is scheduled for marcieon Not available 12/17/2023 09:17:24 03/18/2024 03/18/2024 Izabel Madrigal, with a history of hypermobile Korey-Danlos Syndrome and psychiatric history, presents for a follow-up visit. She reports chronic fatigue, jaw pain, upper body pain, and symptoms suggestive of vocal cord dysfunction. Her migraines have decreased in frequency, but she experiences severe intestinal pain and ongoing bladder issues despite some improvement with a pessary and hydroxyzine. She is seeking further documentation for disability with an autism assessment. The plan includes continuing current medications, trial of OTC meds, referrals to specialists, and further evaluations. The total time devoted to today's encounter, including both the ggbs-tc-ahxd time with the patient and/or family/caregiver and zjv-jgjx-lm-face time I personally spent is 43 minutes. 38 minutes face to face time and 5 minutes documentation. eoleson Not available 03/19/2024 07:29:05 Plan of Treatment Reminders Order Date Submit Date Provider Last Modified By Organization Details Last Modified Time Details Appointments Offic e Visit 40 2024 11:50A M Ally Bradford Not available Not available Not available Chron ic Care Coord inato r 60 2024 01:00P M Javon Chronic Seat Cover Installer Not available Not available Not available Lab TSH, serum , refle x free T4 [address] [facility] (Registration) , [address] [place] [address] [place], [address], 10/27/2023 14:36:06 vitam in D, 25-hy droxy , total , serum - 1 tiger top drawn in offic e-SN [address] [facility] (Registration) , [address] [place] [address] [place], [address], 12/17/2023 15:55:16 iron + TIBC + carter tin, serum [address] [facility] (Registration) , [address] [place] [address] [place], [address], 12/18/2023 10:13:[address] refer rea heredia 2023 024 [facility], [address] [place] [address], [address], 03/21/2024 08:11:33 otcornelio roche refer rea diaz rn for vocal cord dysfu nctio n, hoars eness , choki ng when talki ng, dyspn ea, cough 2023 024 MELY Gil MD, [address] [place] [address] [place], [address], 03/21/2024 08:28:26 physi rip bernardino pist refer ral 2023 MELY Brown PT, [address], [place], [address], 03/18/2024 14:00:06 urogy necol ogist refer ral - 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 Pessa ry has helpe d but still havin g signi fican t incon tinen ce. Doesn 't feel urge to void until bladd er is full. May need urody namic s. 2023 MELY [facility] , [place], [address], 03/21/2024 08:28:38 Procedures None recor ded. Surgeries None recor ded. Imaging None recor ded. Medication Orders metho carba mol 750 mg table t 2023 024 mylene [facility], [address] [place] [address], [id number], 09/10/2023 14:18:22 docus ate sodiu m 100 mg capsu le 2023 024 NADIA [facility], [address] [place] [address], [id number], 09/10/2023 15:07:11 melox icam 15 mg table t 2023 024 NADIALEIF [facility], [address] [place] [address], [id number], 10/23/2023 14:10:33 metho carba mol 500 mg table t 2023 024 NADIALEIF [facility], [address] [place] [address], [id number], 10/23/2023 14:10:32 Patient TargetsNo targets recorded. Patient Instructions Encounter Date Encounter Id Patient Instructions Last Modified By Organization Details Last Modified Time 12/17/2023 [id number] Dear Mike Paiz nk you for visiting [...] any questions or concerns. Warm regards, Dr. Ally Bradford MD eoleson Not available 12/17/2023 09:06:56 03/18/2024 [id number] Dear Izabel Thank you for visiting my office. Your dedication to managing your health conditions is commendable, and I'm committed to supporting you on your journey towards better health. Here is a summary of our discussion and the recommendations made: - Vitamin D Supplementation: - Take vitamin D 2000 units daily to address low levels. - Jaw Pain Management: - Take methocarbamol as needed, especially at night. Ok to try during the day as needed. - Apply heat, gentle massage. - Limit dental work, eat soft foods, brush teeth once daily, and use a fluoride rinse. - Physical Therapy: - Referral for upper body exercises. - Vocal Cord Dysfunction: - ENT referral to evaluate symptoms. - Incontinence and Pelvic Pain: - Referral to urogyn for incontinence evaluation. - Continue using the pessary and hydroxyzine as they have shown improvement. - Consider revisiting pelvic floor PT after urodynamic studies. - Migraine Management: - Continue current regimen and consider Imitrex if frequency or severity increases. - Intestinal Pain: - Try GasX for relief. - Maintain a food and symptom log to identify triggers or patterns. - Suspect this is related to IBS. - Autism Assessment: - Another referral to [facility]. Please keep me updated on your progress, especially regarding the effectiveness of methocarbamol for your jaw and shoulder pain. If you have any concerns or if the current management strategies do not provide sufficient relief, do not hesitate to contact the office. I look forward to seeing you in a few months for a follow-up, and I hope you have a pleasant holiday season. Best regards, MD moses Skinner Not available 03/19/2024 07:28:38 Reason for Referral Physical Therapist Referral for Strain of trapezius muscle Referring Physician: Ally Bradford [facility], Encounter Date: 03/18/2024 Tile Mechanic Helper Referral fo r Vocal cord dysfunction concern for vocal cord dysfunction, hoarseness, choking when talking, dyspnea, cough Referring Physician: Ally Bradford [facility], Encounter Date: 03/18/2024 Urogynecologist Referral for Urge incontinence of urine complicated history of hEDS, prolapse, has pessary, interstitial cystitis. Pessary has helped but still having significant incontinence. Doesn't feel urge to void until bladder is full. May need urodynamics. Referring Physician: Ally Bradford [facility], Encounter Date: 03/18/2024 Psychologist Referral for Au tism spectrum disorder needs autism assessment Referring Physician: Ally Bradford [facility], Encounter Date: 03/18/2024 Results Created Date Observation Date Name Description Value Unit Range Abnormal Flag Note LastModifiedBy Organization Detail LastModifiedTime 08/12/19 24 08/12/2023 LACTA TE lactate 1.8 mmol/ L Not Available [place] [id number] [facility] [address], [place], [address] 08/12/2023 19:12:06 08/12/19 24 08/12/2023 COMPL ETE BLOOD COUNT W/DIF F WBC 7.25 10_3/ uL Not Available [address] [place], [address] 08/12/2023 19:16:06 08/12/19 24 08/12/2023 COMPL ETE BLOOD COUNT W/DIF F RBC 4.82 10_6/ uL Not Available [address] [place], [address] 08/12/2023 19:16:06 08/12/19 24 08/12/2023 COMPL ETE BLOOD COUNT W/DIF F HGB 14.8 g/dL Not Available Darlene mcpherson [address] [place], [address] 08/12/2023 19:16:06 08/12/19 24 08/12/2023 COMPL ETE BLOOD COUNT W/DIF F HCT 43.0 % Not Available Darlene mcpherson [address] [place], [address] 08/12/2023 19:16:06 08/12/19 24 08/12/2023 COMPL ETE BLOOD COUNT W/DIF F MCV 89 fL Not Available Darlene mcpherson [address] [place], [address] 08/12/2023 19:16:06 08/12/19 24 08/12/2023 COMPL ETE BLOOD COUNT W/DIF F MCH 30.7 pg Not Available Darlene mcpherson [address] [place], [address] 08/12/2023 19:16:06 08/12/19 24 08/12/2023 COMPL ETE BLOOD COUNT W/DIF F MCHC 34.4 % Not Available Darlene mcpherson [address] [place], [address] 08/12/2023 19:16:06 08/12/19 24 08/12/2023 COMPL ETE BLOOD COUNT W/DIF F RDW 11.9 % Not Available Darlene mcpherson [address] [place], [address] 08/12/2023 19:16:06 08/12/19 24 08/12/2023 COMPL ETE BLOOD COUNT W/DIF F platelet count 292 10_3/ uL Not Available [address] [place], [address] 08/12/2023 19:16:06 08/12/19 24 08/12/2023 COMPL ETE BLOOD COUNT W/DIF F MPV 10.8 fL Not Available [address] [place], [address] 08/12/2023 19:16:06 08/12/19 24 08/12/2023 COMPL ETE BLOOD COUNT W/DIF F neutrophils % 75.7 Not Available [address] [place], [address] 08/12/2023 19:16:06 08/12/19 24 08/12/2023 COMPL ETE BLOOD COUNT W/DIF F lymphocytes % 19.4 Not Available [address] [place], [address] 08/12/2023 19:16:06 08/12/19 24 08/12/2023 COMPL ETE BLOOD COUNT W/DIF F monocytes % 4.0 Not Available [address] [place], [address] 08/12/2023 19:16:06 08/12/19 24 08/12/2023 COMPL ETE BLOOD COUNT W/DIF F eosinophils % 0.0 Not Available [address] [place], [address] 08/12/2023 19:16:06 08/12/19 24 08/12/2023 COMPL ETE BLOOD COUNT W/DIF F basophils % 0.6 Not Available [address] [place], [address] 08/12/2023 19:16:06 08/12/19 24 08/12/2023 COMPL ETE BLOOD COUNT W/DIF F immature grans % 0.3 Not Available [address] [place], [address] 08/12/2023 19:16:06 08/12/19 24 08/12/2023 COMPL ETE BLOOD COUNT W/DIF F nucleated RBC 0.0 % Not Available Prema moreno [address] [place], [address] 08/12/2023 19:16:06 08/12/19 24 08/12/2023 COMPL ETE BLOOD COUNT W/DIF F absolute neutrophil count 5.49 10_3/ uL Not Available [address] [place], [address] 08/12/2023 19:16:06 08/12/19 24 08/12/2023 COMPL ETE BLOOD COUNT W/DIF F absolute lymphocyte count 1.41 10_3/ uL Not Available [address] [place], [address] 08/12/2023 19:16:06 08/12/19 24 08/12/2023 COMPL ETE BLOOD COUNT W/DIF F absolute monocyte count 0.29 10_3/ uL Not Available [address] [place], [address] 08/12/2023 19:16:06 08/12/19 24 08/12/2023 COMPL ETE BLOOD COUNT W/DIF F absolute eosinophil count 0.00 10_3/ uL Not Available [address] [place], [address] 08/12/2023 19:16:06 08/12/19 24 08/12/2023 COMPL ETE BLOOD COUNT W/DIF F absolute basophil count 0.04 10_3/ uL Not Available [address] [place], [address] 08/12/2023 19:16:06 08/12/19 24 08/12/2023 ESR ESR 11 mm/HR Not Available [address] [place], [address] 08/12/2023 19:16:08 08/12/19 24 08/12/2023 URINA LYSIS color Yellow Not Available Darlene mcpherson [address] [place], [address] 08/12/2023 19:22:07 08/12/19 24 08/12/2023 URINA LYSIS clarity Clear Not Available Darlene mcpherson [address] [place], [address] 08/12/2023 19:22:07 08/12/19 24 08/12/2023 URINA LYSIS specific gravity 1.020 Not Available Prema moreno [address] [place], [address] 08/12/2023 19:22:07 08/12/19 24 08/12/2023 URINA LYSIS pH 7.5 Not Available Darlene mchperson [address] [place], [address] 08/12/2023 19:22:07 08/12/19 24 08/12/2023 URINA LYSIS leukocyte esterase Negati ve Not Available [address] [place], [address] 08/12/2023 19:22:07 08/12/19 24 08/12/2023 URINA LYSIS nitrite Negati ve Not Available [address] [place], [address] 08/12/2023 19:22:07 08/12/19 24 08/12/2023 URINA LYSIS protein Negati ve mg/dL Not Available [address] [place], [address] 08/12/2023 19:22:07 08/12/19 24 08/12/2023 URINA LYSIS glucose Negati ve mg/dL Not Available [address] [place], [address] 08/12/2023 19:22:07 08/12/19 24 08/12/2023 URINA LYSIS ketones >=160 mg/dL Not Available Darlene mcpherson [address] [place], [address] 08/12/2023 19:22:07 08/12/19 24 08/12/2023 URINA LYSIS urobilinogen 0.2 mg/dL Not Available [address] [place], [address] 08/12/2023 19:22:07 08/12/19 24 08/12/2023 URINA LYSIS bilirubin Negati ve Not Available [address] [place], [address] 08/12/2023 19:22:07 08/12/19 24 08/12/2023 URINA LYSIS blood Negati ve Not Available Yoko knight [address] [place], [address] 08/12/2023 19:22:07 08/12/19 24 08/12/2023 LIVER PANEL total protein 8.1 g/dL Not Available [facility] [address] [place], [address] 08/12/2023 19:35:08 08/12/19 24 08/12/2023 LIVER PANEL albumin 4.3 g/dL Not Available Darlene mcpherson [address] [place], [address] 08/12/2023 19:35:08 08/12/19 24 08/12/2023 LIVER PANEL bilirubin, total 0.5 mg/dL Not Available [facility] [address] [place], [address] 08/12/2023 19:35:08 08/12/19 24 08/12/2023 LIVER PANEL alk phos 96 U/L Not Available [address] [place], [address] 08/12/2023 19:35:08 08/12/19 24 08/12/2023 LIVER PANEL AST 16 U/L Not Available Darlene mcpherson [address] [place], [address] 08/12/2023 19:35:08 08/12/19 24 08/12/2023 LIVER PANEL ALT 20 U/L Not Available Darlene mcpherson [address] [place], [address] 08/12/2023 19:35:08 08/12/19 24 08/12/2023 LIVER PANEL bilirubin, conjugated 0.1 mg/dL Not Available [address] [place], [address] 08/12/2023 19:35:08 08/12/19 24 08/12/2023 BASIC METAB OLIC PANEL calcium 9.5 mg/dL Not Available Darlene mcpherson [address] [place], [address] 08/12/2023 19:35:08 08/12/19 24 08/12/2023 BASIC METAB OLIC PANEL glucose 108 mg/dL Not Available Darlene mcpherson [address] [place], [address] 08/12/2023 19:35:08 08/12/19 24 08/12/2023 BASIC METAB OLIC PANEL BUN 9 mg/dL Not Available Darlene mcpherson [address] [place], [address] 08/12/2023 19:35:08 08/12/19 24 08/12/2023 BASIC METAB OLIC PANEL creatinine 0.9 mg/dL Not Available [address] [place], [address] 08/12/2023 19:35:08 08/12/19 24 08/12/2023 BASIC METAB OLIC PANEL sodium 141 mmol/ L Not Available [address] [place], [address] 08/12/2023 19:35:08 08/12/19 24 08/12/2023 BASIC METAB OLIC PANEL potassium 3.6 mmol/ L Not Available [address] [place], [address] 08/12/2023 19:35:08 08/12/19 24 08/12/2023 BASIC METAB OLIC PANEL chloride 103 mmol/ L Not Available [address] [place], [address] 08/12/2023 19:35:08 08/12/19 24 08/12/2023 BASIC METAB OLIC PANEL CO2 25.1 mmol/ L Not Available [address] [place], [address] 08/12/2023 19:35:08 08/12/19 24 08/12/2023 BASIC METAB OLIC PANEL anion gap 12.9 mmol/ L Not Available [address] [place], [address] 08/12/2023 19:35:08 08/12/19 24 08/12/2023 MAGNE SIUM magnesium 1.9 mg/dL Not Available [address] [place], [address] 08/12/2023 19:35:09 08/12/19 24 08/12/2023 C-CHRISTINA CTIVE PROTE IN C-reactive protein < 0.50 mg/dL Not Available Prema moreno [address] [place], [address] 08/12/2023 19:35:09 08/12/19 24 08/12/2023 LIPAS E lipase 25 U/L Not Available Darlene mcpherson [address] [place], [address] 08/12/2023 19:35:10 08/12/19 24 08/12/2023 COVID /FLU/ RSV PCR source Nasoph arynx Not Available [address] [place], [address] 08/12/2023 20:26:12 08/12/19 24 08/12/2023 COVID /FLU/ RSV PCR covid-19 PCR Negati ve Not Available [address] [place], [address] 08/12/2023 20:26:12 08/12/19 24 08/12/2023 COVID /FLU/ RSV PCR influenza A PCR Negati ve Not Available [address] [place], [address] 08/12/2023 20:26:12 08/12/19 24 08/12/2023 COVID /FLU/ RSV PCR influenza B PCR Negati ve Not Available [address] [place], [address] 08/12/2023 20:26:12 08/12/19 24 08/12/2023 COVID /FLU/ RSV PCR RSV PCR Negati ve Not Available [address] [place], [address] 08/12/2023 20:26:12 08/15/19 24 08/15/2023 COMPL ETE BLOOD COUNT W/DIF F WBC 6.72 10_3/ uL Not Available [address] [place], [address] 08/15/2023 11:19:30 08/15/19 24 08/15/2023 COMPL ETE BLOOD COUNT W/DIF F RBC 4.86 10_6/ uL Not Available [address] [place], [address] 08/15/2023 11:19:30 08/15/19 24 08/15/2023 COMPL ETE BLOOD COUNT W/DIF F HGB 15.0 g/dL Not Available Darlene mcpherson [address] [place], [address] 08/15/2023 11:19:30 08/15/19 24 08/15/2023 COMPL ETE BLOOD COUNT W/DIF F HCT 43.1 % Not Available Darlene mcpherson [address] [place], [address] 08/15/2023 11:19:30 08/15/19 24 08/15/2023 COMPL ETE BLOOD COUNT W/DIF F MCV 89 fL Not Available Darlene mcpherson [address] [place], [address] 08/15/2023 11:19:30 08/15/19 24 08/15/2023 COMPL ETE BLOOD COUNT W/DIF F MCH 30.9 pg Not Available Darlene mcpherson [address] [place], [address] 08/15/2023 11:19:30 08/15/19 24 08/15/2023 COMPL ETE BLOOD COUNT W/DIF F MCHC 34.8 % Not Available Darlene mcpherson [address] [place], [address] 08/15/2023 11:19:30 08/15/19 24 08/15/2023 COMPL ETE BLOOD COUNT W/DIF F RDW 11.8 % Not Available Darlene mcpherson [address] [place], [address] 08/15/2023 11:19:30 08/15/19 24 08/15/2023 COMPL ETE BLOOD COUNT W/DIF F platelet count 254 10_3/ uL Not Available [address] [place], [address] 08/15/2023 11:19:30 08/15/19 24 08/15/2023 COMPL ETE BLOOD COUNT W/DIF F MPV 10.7 fL Not Available Darlene mcpherson [address] [place], [address] 08/15/2023 11:19:30 08/15/19 24 08/15/2023 COMPL ETE BLOOD COUNT W/DIF F neutrophils % 69.9 Not Available [address] [place], [address] 08/15/2023 11:19:30 08/15/19 24 08/15/2023 COMPL ETE BLOOD COUNT W/DIF F lymphocytes % 24.3 Not Available [address] [place], [address] 08/15/2023 11:19:30 08/15/19 24 08/15/2023 COMPL ETE BLOOD COUNT W/DIF F monocytes % 4.8 Not Available [address] [place], [address] 08/15/2023 11:19:30 08/15/19 24 08/15/2023 COMPL ETE BLOOD COUNT W/DIF F eosinophils % 0.3 Not Available [address] [place], [address] 08/15/2023 11:19:30 08/15/19 24 08/15/2023 COMPL ETE BLOOD COUNT W/DIF F basophils % 0.4 Not Available [address] [place], [address] 08/15/2023 11:19:30 08/15/19 24 08/15/2023 COMPL ETE BLOOD COUNT W/DIF F immature grans % 0.3 Not Available [address] [place], [address] 08/15/2023 11:19:30 08/15/19 24 08/15/2023 COMPL ETE BLOOD COUNT W/DIF F nucleated RBC 0.0 % Not Available [address] [place], [address] 08/15/2023 11:19:30 08/15/19 24 08/15/2023 COMPL ETE BLOOD COUNT W/DIF F absolute neutrophil count 4.70 10_3/ uL Not Available [address] [place], [address] 08/15/2023 11:19:30 08/15/19 24 08/15/2023 COMPL ETE BLOOD COUNT W/DIF F absolute lymphocyte count 1.63 10_3/ uL Not Available [address] [place], [address] 08/15/2023 11:19:30 08/15/19 24 08/15/2023 COMPL ETE BLOOD COUNT W/DIF F absolute monocyte count 0.32 10_3/ uL Not Available [address] [place], [address] 08/15/2023 11:19:30 08/15/19 24 08/15/2023 COMPL ETE BLOOD COUNT W/DIF F absolute eosinophil count 0.02 10_3/ uL Not Available [address] [place], [address] 08/15/2023 11:19:30 08/15/19 24 08/15/2023 COMPL ETE BLOOD COUNT W/DIF F absolute basophil count 0.03 10_3/ uL Not Available [address] [place], [address] 08/15/2023 11:19:30 08/15/19 24 08/15/2023 COMPR EHENS ANISHA METAB OLIC PANEL calcium 9.3 mg/dL Not Available Darlene mcpherson [address] [place], [address] 08/15/2023 11:34:31 08/15/19 24 08/15/2023 COMPR EHENS ANISHA METAB OLIC PANEL glucose 104 mg/dL Not Available Darlene mcpherson [address] [place], [address] 08/15/2023 11:34:31 08/15/19 24 08/15/2023 COMPR EHENS ANISHA METAB OLIC PANEL BUN 20 mg/dL Not Available Darlene rn [address] [place], [address] 08/15/2023 11:34:31 08/15/19 24 08/15/2023 COMPR EHENS ANISHA METAB OLIC PANEL creatinine 0.8 mg/dL Not Available [address] [place], [address] 08/15/2023 11:34:31 08/15/19 24 08/15/2023 COMPR EHENS ANISHA METAB OLIC PANEL total protein 8.2 g/dL Not Available [address] [place], [address] 08/15/2023 11:34:31 08/15/19 24 08/15/2023 COMPR EHENS ANISHA METAB OLIC PANEL albumin 4.5 g/dL Not Available [address] [place], [address] 08/15/2023 11:34:31 08/15/19 24 08/15/2023 COMPR EHENS ANISHA METAB OLIC PANEL bilirubin, total 0.9 mg/dL Not Available [address] [place], [address] 08/15/2023 11:34:31 08/15/19 24 08/15/2023 COMPR EHENS ANISHA METAB OLIC PANEL alk phos 92 U/L Not Available [address] [place], [address] 08/15/2023 11:34:31 08/15/19 24 08/15/2023 COMPR EHENS ANISHA METAB OLIC PANEL sodium 140 mmol/ L Not Available [address] [place], [address] 08/15/2023 11:34:31 08/15/19 24 08/15/2023 COMPR EHENS ANISHA METAB OLIC PANEL potassium 3.6 mmol/ L Not Available [address] [place], [address] 08/15/2023 11:34:31 08/15/19 24 08/15/2023 COMPR EHENS ANISHA METAB OLIC PANEL chloride 102 mmol/ L Not Available [address] [place], [address] 08/15/2023 11:34:31 08/15/19 24 08/15/2023 COMPR EHENS ANISHA METAB OLIC PANEL CO2 22.5 mmol/ L Not Available [address] [place], [address] 08/15/2023 11:34:31 08/15/19 24 08/15/2023 COMPR EHENS ANISHA METAB OLIC PANEL anion gap 15.5 mmol/ L Not Available [address] [place], [address] 08/15/2023 11:34:31 08/15/19 24 08/15/2023 COMPR EHENS ANISHA METAB OLIC PANEL AST 14 U/L Not Available Darlene mcpherson [address] [place], [address] 08/15/2023 11:34:31 08/15/19 24 08/15/2023 COMPR EHENS ANISHA METAB OLIC PANEL ALT 20 U/L Not Available Darlene [address] [place], [address] 08/15/2023 11:34:31 08/15/19 24 08/15/2023 MAGNE SIUM magnesium 2.0 mg/dL Not Available [address] [facility] [place], [address] 08/15/2023 11:34:32 08/15/19 24 08/15/2023 LIPAS E lipase 27 U/L Not Available Darlene [address] [facility] [place], [address] 08/15/2023 11:34:32 08/15/19 24 08/15/2023 HCG QUAL (SERU M) HCG qual (serum) Negati ve Not Available Claudine[address] [facility] [place], [address] 08/15/2023 11:55:35 08/15/19 24 08/15/2023 URINA LYSIS color Yellow Not Available Darlene [address] [place], [address] 08/15/2023 12:27:39 08/15/19 24 08/15/2023 URINA LYSIS clarity Sl Cloudy Not Available [address] [place], [address] 08/15/2023 12:27:39 08/15/19 24 08/15/2023 URINA LYSIS specific gravity 1.025 Not Available [address] [place], [address] 08/15/2023 12:27:39 08/15/19 24 08/15/2023 URINA LYSIS pH 6.0 Not Available Darlene mcpherson [address] [place], [address] 08/15/2023 12:27:39 08/15/19 24 08/15/2023 URINA LYSIS leukocyte esterase Negati ve Not Available [address] [place], [address] 08/15/2023 12:27:39 08/15/19 24 08/15/2023 URINA LYSIS nitrite Negati ve Not Available [address] [place], [address] 08/15/2023 12:27:39 08/15/19 24 08/15/2023 URINA LYSIS protein Negati ve mg/dL Not Available [address] [place], [address] 08/15/2023 12:27:39 08/15/19 24 08/15/2023 URINA LYSIS glucose Negati ve mg/dL Not Available [address] [place], [address] 08/15/2023 12:27:39 08/15/19 24 08/15/2023 URINA LYSIS ketones >=160 mg/dL Not Available Darlene mcpherson [address] [place], [address] 08/15/2023 12:27:39 08/15/19 24 08/15/2023 URINA LYSIS urobilinogen 1.0 mg/dL Not Available [address] [place], [address] 08/15/2023 12:27:39 08/15/19 24 08/15/2023 URINA LYSIS bilirubin Small Not Available [address] [place], [address] 08/15/2023 12:27:39 08/15/19 24 08/15/2023 URINA LYSIS blood Negati ve Not Available [address], [address] 08/15/2023 12:27:39 09/18/1909/18/2023 URINA LYSIS color Yellow Not Available Darlene mcpherson [address] [place], [address] 09/18/2023 18:56:22 09/18/19 24 09/18/2023 URINA LYSIS clarity Clear Not Available Darlene mcpherson [address] [place], [address] 09/18/2023 18:56:22 09/18/19 24 09/18/2023 URINA LYSIS specific gravity 1.015 Not Available Prema moreno [address] [place], [address] 09/18/2023 18:56:22 09/18/19 24 09/18/2023 URINA LYSIS pH 7.0 Not Available Darlene mcpherson [address] [place], [address] 09/18/2023 18:56:22 09/18/19 24 09/18/2023 URINA LYSIS leukocyte esterase Negati ve Not Available [address] [place], [address] 09/18/2023 18:56:22 09/18/19 24 09/18/2023 URINA LYSIS nitrite Negati ve Not Available [address] [place], [address] 09/18/2023 18:56:22 09/18/19 24 09/18/2023 URINA LYSIS protein Negati ve mg/dL Not Available [address] [place], [address] 09/18/2023 18:56:22 09/18/19 24 09/18/2023 URINA LYSIS glucose Negati ve mg/dL Not Available [address] [place], [address] 09/18/2023 18:56:22 09/18/19 24 09/18/2023 URINA LYSIS ketones Negati ve mg/dL Not Available [address] [place], [address] 09/18/2023 18:56:22 09/18/19 24 09/18/2023 URINA LYSIS urobilinogen 0.2 mg/dL Not Available [address] [place], [address] 09/18/2023 18:56:22 09/18/19 24 09/18/2023 URINA LYSIS bilirubin Negati ve Not Available [address], [address] 09/18/2023 18:56:22 09/18/19 24 09/18/2023 URINA LYSIS blood Negati ve Not Available [address] [place], [address] 09/18/2023 18:56:22 10/02/19 24 10/02/2023 URINA LYSIS color Yellow Not Available Darlene mcpherson [address] [place], [address] 10/02/2023 20:59:48 10/02/19 24 10/02/2023 URINA LYSIS clarity Clear Not Available Darlene mcpherson [address] [place], [address] 10/02/2023 20:59:48 10/02/19 24 10/02/2023 URINA LYSIS specific gravity 1.015 Not Available Jersey tiffanie [address] [place], [address] 10/02/2023 20:59:48 10/02/19 24 10/02/2023 URINA LYSIS pH 7.0 Not Available Darlene mcpherson [address] [place], [address] 10/02/2023 20:59:48 10/02/19 24 10/02/2023 URINA LYSIS leukocyte esterase Negati ve Not Available [address], [address] 10/02/2023 20:59:48 10/02/19 24 10/02/2023 URINA LYSIS nitrite Negati ve Not Available [address], [address] 10/02/2023 20:59:48 10/02/19 24 10/02/2023 URINA LYSIS protein Negati ve mg/dL Not Available [address], [address] 10/02/2023 20:59:48 10/02/19 24 10/02/2023 URINA LYSIS glucose Negati ve mg/dL Not Available [address] [place], [address] 10/02/2023 20:59:48 10/02/19 24 10/02/2023 URINA LYSIS ketones Negati ve mg/dL Not Available [address] [place], [address] 10/02/2023 20:59:48 10/02/19 24 10/02/2023 URINA LYSIS urobilinogen 0.2 mg/dL Not Available [address] [place], [address] 10/02/2023 20:59:48 10/02/19 24 10/02/2023 URINA LYSIS bilirubin Negati ve Not Available [address] [place], [address] 10/02/2023 20:59:48 10/02/19 24 10/02/2023 URINA LYSIS blood Negati ve Not Available [address] [place], [address] 10/02/2023 20:59:48 10/02/19 24 10/02/2023 URINE DRUG SCREE N ([facility] ) methadone Negati ve negtat anisha Not Available [address] [place], [address] 10/02/2023 21:13:43 10/02/19 24 10/02/2023 URINE DRUG SCREE N ([facility] ) benzodiazepi jose guadalupe Negati ve negati ve Benzo diaze pines are exten sivel y metab olize d and the paren t compo und may not be detec kiya in urine . If clini rip suspi cion is high, pleas e notif y Lab for send- out testi ng. Not Available [address] [place], [address] 10/02/2023 21:13:43 10/02/19 24 10/02/2023 URINE DRUG SCREE N ([facility] ) cocaine Negati ve negati ve Not Available [address] [place], [address] 10/02/2023 21:13:43 10/02/19 24 10/02/2023 URINE DRUG SCREE N ([facility] ) amphetamines Negati ve negati ve Not Available [address] [place], [address] 10/02/2023 21:13:43 10/02/19 24 10/02/2023 URINE DRUG SCREE N ([facility] ) tetrahydroca nnabinol Positi ve negati ve abnormal Not Available [address] [place], [address] 10/02/2023 21:13:43 10/02/19 24 10/02/2023 URINE DRUG SCREE N ([facility] ) opiates Negati ve negati ve Not Available [address] [place], [address] 10/02/2023 21:13:43 10/02/19 24 10/02/2023 URINE DRUG SCREE N ([facility] ) barbiturates Negati ve negati ve Not Available [address] [place], [address] 10/02/2023 21:13:43 10/02/19 24 10/02/2023 URINE DRUG SCREE N ([facility] ) tricyclic antidepressa nts Negati ve negtiv e T his test is not suita ble for legal purpo ses Cutof f emily ntrat ions for each drug class are: MTD 300 ng/mL BZO 200 ng/mL WINNIE 300 ng/mL * AMP 1000 ng/mL * THC 50 ng/mL OPI 300 ng/mL BAR 200 ng/mL TCA 1000 ng/mL *Serafin mmend ed scree jesús cutof f emily ntrat ions by the subst ance abuse and menta l healt h servi moises admin istra tion. This test provi froylan preli minar y resul ts. A more speci fic alter oksana metho d such as GC/MS is the prefe rred confi rmato ry metho d. Notif y the Labor atory withi n 72 hours of repor t date if you izabela e confi rmati on. Presc ribed medic ation s may give posit anisha resul ts and must be consi dered prior to inter preta tion of these resul ts. Not Available [address] [place], [address] 10/02/2023 21:13:43 10/02/19 24 10/02/2023 COMPL ETE BLOOD COUNT W/DIF F WBC 8.67 10_3/ uL Not Available [address] [place], [address] 10/02/2023 21:22:44 10/02/19 24 10/02/2023 COMPL ETE BLOOD COUNT W/DIF F RBC 4.76 10_6/ uL Not Available [address] [place], [address] 10/02/2023 21:22:44 10/02/19 24 10/02/2023 COMPL ETE BLOOD COUNT W/DIF F HGB 14.6 g/dL Not Available Darlene mcpherson [address] [place], [address] 10/02/2023 21:22:44 10/02/19 24 10/02/2023 COMPL ETE BLOOD COUNT W/DIF F HCT 42.8 % Not Available Darlene mcpherson [address] [place], [address] 10/02/2023 21:22:44 10/02/19 24 10/02/2023 COMPL ETE BLOOD COUNT W/DIF F MCV 90 fL Not Available Darlene rn [address] [place], [address] 10/02/2023 21:22:44 10/02/19 24 10/02/2023 COMPL ETE BLOOD COUNT W/DIF F MCH 30.7 pg Not Available Darlene rn [address] [place], [address] 10/02/2023 21:22:44 10/02/19 24 10/02/2023 COMPL ETE BLOOD COUNT W/DIF F MCHC 34.1 % Not Available Darlene mcpherson [address] [place], [address] 10/02/2023 21:22:44 10/02/19 24 10/02/2023 COMPL ETE BLOOD COUNT W/DIF F RDW 12.8 % Not Available Darlene mcpherson [address] [place], [address] 10/02/2023 21:22:44 10/02/19 24 10/02/2023 COMPL ETE BLOOD COUNT W/DIF F platelet count 271 10_3/ uL Not Available [address] [place], [address] 10/02/2023 21:22:44 10/02/19 24 10/02/2023 COMPL ETE BLOOD COUNT W/DIF F MPV 10.6 fL Not Available Darlene mcpherson [address] [place], [address] 10/02/2023 21:22:44 10/02/19 24 10/02/2023 COMPL ETE BLOOD COUNT W/DIF F neutrophils % 83.6 % Not Available [address] [place], [address] 10/02/2023 21:22:44 10/02/19 24 10/02/2023 COMPL ETE BLOOD COUNT W/DIF F lymphocytes % 12.0 % Not Available [address] [place], [address] 10/02/2023 21:22:44 10/02/19 24 10/02/2023 COMPL ETE BLOOD COUNT W/DIF F monocytes % 3.8 % Not Available [address] [place], [address] 10/02/2023 21:22:44 10/02/19 24 10/02/2023 COMPL ETE BLOOD COUNT W/DIF F eosinophils % 0.1 % Not Available [address] [place], [address] 10/02/2023 21:22:44 10/02/19 24 10/02/2023 COMPL ETE BLOOD COUNT W/DIF F basophils % 0.3 % Not Available [address] [place], [address] 10/02/2023 21:22:44 10/02/19 24 10/02/2023 COMPL ETE BLOOD COUNT W/DIF F immature grans % 0.2 % Not Available [facility] [address] [place], [address] 10/02/2023 21:22:44 10/02/19 24 10/02/2023 COMPL ETE BLOOD COUNT W/DIF F nucleated RBC 0.0 % Not Available [facility] [address] [place], [address] 10/02/2023 21:22:44 10/02/19 24 10/02/2023 COMPL ETE BLOOD COUNT W/DIF F absolute neutrophil count 7.24 10_3/ uL Not Available [address] [place], [address] 10/02/2023 21:22:44 10/02/19 24 10/02/2023 COMPL ETE BLOOD COUNT W/DIF F absolute lymphocyte count 1.04 10_3/ uL Not Available [address] [place], [address] 10/02/2023 21:22:44 10/02/19 24 10/02/2023 COMPL ETE BLOOD COUNT W/DIF F absolute monocyte count 0.33 10_3/ uL Not Available [address] [place], [address] 10/02/2023 21:22:44 10/02/19 24 10/02/2023 COMPL ETE BLOOD COUNT W/DIF F absolute eosinophil count 0.01 10_3/ uL Not Available [address] [place], [address] 10/02/2023 21:22:44 10/02/19 24 10/02/2023 COMPL ETE BLOOD COUNT W/DIF F absolute basophil count 0.03 10_3/ uL Not Available [address] [place], [address] 10/02/2023 21:22:44 10/02/19 24 10/02/2023 ACETA MINOP HEN acetaminophe n < 2 ug/mL Not Available Northe [address] [place], [address] 10/02/2023 21:38:45 10/02/19 24 10/02/2023 SALIC YLATE salicylate < 2.8 mg/dL Danyellefanny anahi c Range is 2.8-2 0.0 mg/dL Not Available [address] [place], [address] 10/02/2023 21:38:46 10/02/19 24 10/02/2023 COMPR EHENS ANISHA METAB OLIC PANEL calcium 9.1 mg/dL Not Available Darlene mcpherson [address] [place], [address] 10/02/2023 22:15:48 10/02/19 24 10/02/2023 COMPR EHENS ANISHA METAB OLIC PANEL glucose 113 mg/dL Not Available Darlene mcpherson [address] [place], [address] 10/02/2023 22:15:48 10/02/19 24 10/02/2023 COMPR EHENS ANISHA METAB OLIC PANEL BUN 7 mg/dL Not Available Darlene mcpherson [address] [place], [address] 10/02/2023 22:15:48 10/02/19 24 10/02/2023 COMPR EHENS ANISHA METAB OLIC PANEL creatinine 0.9 mg/dL Not Available Beth [address] [place], [address] 10/02/2023 22:15:48 10/02/19 24 10/02/2023 COMPR EHENS ANISHA METAB OLIC PANEL total protein 7.5 g/dL Not Available [facility] [address] [place], [address] 10/02/2023 22:15:48 10/02/19 24 10/02/2023 COMPR EHENS ANISHA METAB OLIC PANEL albumin 4.1 g/dL Not Available Darlene mcpherson [address] [place], [address] 10/02/2023 22:15:48 10/02/19 24 10/02/2023 COMPR EHENS ANISHA METAB OLIC PANEL bilirubin, total 0.4 mg/dL Not Available Prema moreno [address] [place], [address] 10/02/2023 22:15:48 10/02/19 24 10/02/2023 COMPR EHENS ANISHA METAB OLIC PANEL alk phos 90 U/L Not Available [address] [place], [address] 10/02/2023 22:15:48 10/02/19 24 10/02/2023 COMPR EHENS ANISHA METAB OLIC PANEL sodium 141 mmol/ L Not Available [address] [place], [address] 10/02/2023 22:15:48 10/02/19 24 10/02/2023 COMPR EHENS ANISHA METAB OLIC PANEL potassium 3.5 mmol/ L Not Available [address] [place], [address] 10/02/2023 22:15:48 10/02/19 24 10/02/2023 COMPR EHENS ANISHA METAB OLIC PANEL chloride 104 mmol/ L Not Available [address] [place], [address] 10/02/2023 22:15:48 10/02/19 24 10/02/2023 COMPR EHENS ANISHA METAB OLIC PANEL CO2 25.0 mmol/ L Not Available [address] [place], [address] 10/02/2023 22:15:48 10/02/19 24 10/02/2023 COMPR EHENS ANISHA METAB OLIC PANEL anion gap 12.0 mmol/ L Not Available [address] [place], [address] 10/02/2023 22:15:48 10/02/19 24 10/02/2023 COMPR EHENS ANISHA METAB OLIC PANEL AST 10 U/L Not Available Darlene mcpherson [address] [place], [address] 10/02/2023 22:15:48 10/02/19 24 10/02/2023 COMPR EHENS ANISHA METAB OLIC PANEL ALT 20 U/L Not Available Darlene mcpherson [address] [place], [address] 10/02/2023 22:15:48 10/02/19 24 10/02/2023 TSH (W/RE F FT4) TSH (w/ref FT4) 4.87 uIU/m L 0.36-3 .74 high Not Available [address] [place], [address] 10/02/2023 21:58:47 10/02/19 24 10/02/2023 ETHYL ALCOH OL ethyl alcohol < 3.0 mg/dL ETOH Refer ence Range = <10 mg/dL Legal Limit of Intox icati on is 80 mg/dL This test is inten ded only for Medic al purpo ses. Divid e resul t by 1000 to conve rt to %(w/v ) Not Available [address] [place], [address] 10/02/2023 22:15:48 10/02/19 24 10/02/2023 TSH (W/RE F FT4) TSH (w/ref FT4) 4.87 uIU/m L 0.36-3 .74 high Not Available [address] [place], [address] 10/02/2023 22:15:49 10/02/19 24 10/02/2023 FREE T4 free T4 0.84 NG/dL Not Available Darlene mcpherson [address] [place], [address] 10/02/2023 22:15:49 10/23/19 24 10/23/2023 TSH (W/RE F FT4) TSH (w/ref FT4) 1.89 uIU/m L 0.36-3 .74 normal Not Available [facility] (Registration ) [address] [place] [address] [place], [address], 10/23/2023 21:54:46 12/17/19 24 12/17/2023 CARTER TIN ferritin 25 NG/mL 8-252 normal Not Available [facility] (Registration ) [address] [place] [address] [place], [address], 12/17/2023 15:55:16 12/17/19 24 12/17/2023 VITAM IN D 25 TOTAL vitamin D 25 total 18.1 NG/mL 30-100 low Refer ence Guide lines : Defic ient: <10 ng/ml Insuf ficie nt: 10-30 ng/ml Suffi cient : 30-10 0 ng/ml Toxic : >100 ng/ml Not Available [address] [place], [address] 12/17/2023 15:55:16 12/17/19 24 12/17/2023 IRON AND IBCT iron 64 ug/dL 50-170 normal Not Available [facility] (Registration ) [address] [place] [address] [place], [address], 12/17/2023 16:13:33 12/17/19 24 12/17/2023 IRON AND IBCT total iron binding capacity 331 ug/dL 250-45 0 normal Not Available [facility] (Registration ) [address] [place] [address] [place], [address], 12/17/2023 16:13:33 12/17/19 24 12/17/2023 IRON AND IBCT transferrin sat 19 % 15-50 normal Not Available [facility] (Registration ) [address] [place] [address] [place], [address], 12/17/2023 16:13:33 Result Notes None recorded. Problems Name Problem SNOMED Code Status Onset Date Resolution Date Notes Provider Name and Address Organization Details Recorded Time Strain of trapezius muscle 436311292 Active [address], [place], [address], [facility] 4 11:04:10 Vocal cord dysfunction 917380858 Active [address], [place], [address], [facility] 4 11:06:25 Urge incontinenc e of urine 30013207 Active [address], [place], [address], [facility] 4 11:17:55 Temporomand ibular joint disorder 80487707 Active [address], [place], [address] , [facility] 4 07:24:21 Migraine 09317380 Active [address], [place], [address] , [facility] 4 07:25:37 Dysphagia 04078359 Active 2023 JONO SOTO MA null, [facility] 4 16:30:12 Repeat prescriptio n monitoring Active 2022 Sheyla Zuleta null, [facility] 4 15:25:41 Mixed anxiety and depressive disorder 608017958 Active 2022 WILBER TAVERAS RN null, [facility] 3 08:00:59 Pain in lower limb 49039501 Active 2022 WILBER TAVERAS RN null, [facility] 3 08:01:12 Dysmenorrhe a 982021197 Active 2022 WILBER TAVERAS RN null, [facility] 3 08:01:29 Posttraumat ic stress disorder 65747385 Active 2022 WILBER TAVERAS RN null, [facility] 3 09:33:12 Alcoholism 0372509 Active 2022 WILBER TAVERAS RN null, [facility] 3 09:33:27 Irritable bowel syndrome 11667180 Active 2022 WILBER TAVERAS RN null, [facility] 3 09:33:41 Chronic interstitia l cystitis 170909986 Active 2022 WILBER TAVERAS RN null, [facility] 3 09:34:17 Autism spectrum disorder 93793671 Active [address], [facility] [address] , [facility] 3 14:09:06 Chronic pelvic pain of female 915951541 Active [address], [facility] [address], [facility] 3 14:22:52 Hypermobile Korey-Danl os syndrome 67366909 Active 2022 ALLY BRADFORD MD [address], [facility] [address] , [facility] 3 14:11:53 Orthostatic hypotension 82647272 Active [address], [place], [address], [facility] 3 14:31:02 Irritable bowel syndrome with diarrhea 408645645 Active 2022 Bernarda Susie [facility], [facility] 4 18:08:13 Slow transit constipatio n 06948607 Active 2022 Bernarda Susie null, [facility] 4 18:08:26 Alcohol dependence 80760933 Active 2022 Bernarda Susie null, [facility] 4 18:07:27 Recurrent major depression 47461449 Active 2022 Bernarda Susie null, [facility] 4 18:08:21 Chronic pain 71567717 Active 2022 Bernarda Susie null, [facility] 4 18:08:01 Muscle spasm of cervical muscle of neck 942583798570 Active 2023 Sheyla Zuleta angel, [facility] 4 15:25:48 Hemorrhoids 99601734 Active 2023 Sheyla Zuleta null, [facility] 4 15:25:46 Overactive urinary bladder 764678950 Active 2023 JONO SOTO MA null, [facility] 4 09:48:23 Chronic constipatio n 661009719 Active 2023 JONO SOTO MA null, [facility] 4 09:48:59 Pain in pelvis 76426647 Active [address], [facility] [address], [facility] 4 12:02:25 Irregular intermenstr ual bleeding 72582216 Active [address], [facility] [address], [facility] 4 14:10:57 Congenital pes planus 09971215 Active [address], [facility] [address], [facility] 4 20:49:20 Fatigue 61067921 Active [address], [facility] [address], [facility] 4 08:49:46 Vitamin D deficiency 33703100 Active [address], [facility] [address], [facility] 4 16:31:51 Problem Notes None recorded. Procedures Surgical History Date Name Laterality Status Provider Name and Address Organization Details Recorded Time 2 Date of Last Pap Smear completed WILBER TAVERAS RN [facility] 04/02/2023 13:26:31 extraction of wisdom tooth completed JONO SOTO MA [facility] 06/29/2023 08:18:51 Imaging Results None recorded. Procedure Notes None recorded. Medical Equipment None Reported. Allergies Allergen ID Allergen Name Allergen Category Reaction Reaction Severity Criticality Documentation Date Start Date Code Code System Note Provider Name and Address Organization Details Recorded Time 85806 droperido l medicatio n Not available Not available [facility] 09/10/2023 3648 RxNorm akath montana BRADFORD MD [address], [place], [address] [place] [address] 14:53:29 Medications Name Sig Start Date Stop [...] completed Not Available Not Available Not Available omeprazole 40 mg capsule,de layed release Take 1 capsule every day by oral route. active Not Available Not Available No t Available meloxicam 7.5 mg tablet TAKE 1 [...] CAPSULES BY MOUTH THREE TIMES A DAY NEEDED active Not Available Not [...] completed Not Available Not Available Not Available Vitamin D3 50 mcg (2,000 unit) capsule Take 1 capsule every day by oral route. 03/18 completed Not Available Not Available Not Available Nexplanon 68 mg subdermal implant Inject by subcutan eous route. active placed 3 Not Available Not Available Not Available Multi Vitamin active Not Available Not Available Not Available duloxetine [...] Updated DateTime 4 172.72 cm 23.7 kg/m2 49377.4 1 g 97.5 [degF] 98 % 98 % 111 /min 18 /min 100 mm[Hg] 78 mm[Hg] JONO SOTO MA [facility] 4 09:20:38 Date Recorded Body height Body mass index (BMI) Body weight Body temperature Oxygen saturation Oxygen saturation in Arterial blood by Pulse oximetry Heart rate Systolic blood pressure Diastolic blood pressure Provider Name and Address Organization Details Last Updated DateTime 4 172.72 cm 23.7 kg/m2 33678.4 1 g 97.9 [degF] 99 % 99 % 85 /min 118 mm[Hg] 70 mm[Hg] JONO SOTO MA [facility] 4 14:21:21 Date Recorded Body height Body mass index (BMI) Body weight Body temperature Oxygen saturation Oxygen saturation in Arterial blood by Pulse oximetry Systolic blood pressure Diastolic blood pressure Provider Name and Address Organization Details Last Updated DateTime 4 172.72 cm 23.7 kg/m2 22937.4 1 g 97 [degF] 97 % 97 % 116 mm[Hg] 78 mm[Hg] JONO SOTO MA [facility], [facility] 4 13:30:00 Date Recorded Body height Body mass index (BMI) Body weight Body temperature Oxygen saturation Oxygen saturation in Arterial blood by Pulse oximetry Heart rate Systolic blood pressure Diastolic blood pressure Provider Name and Address Organization Details Last Updated DateTime 4 172.72 cm 25.8 kg/m2 71834.7 g 97.9 [degF] 98 % 98 % 98 /min 118 mm[Hg] 78 mm[Hg] JONO SOTO MA [facility] 4 08:27:30 Date Recorded Body height Body mass index (BMI) Body weight Body temperature Oxygen saturation Oxygen saturation in Arterial blood by Pulse oximetry Heart rate Systolic blood pressure Diastolic blood pressure Provider Name and Address Organization Details Last Updated DateTime 4 172.72 cm 27.2 kg/m2 26216.0 3 g 96.9 [degF] 99 % 99 % 97 /min 130 mm[Hg] 80 mm[Hg] JONO SOTO MA [facility] 4 10:36:28 Social History Question Answer Notes LastModified by Organization Details LastModified Time Tobacco Smoking Status Never Smoker Smokes marijuana. DEEDEE FALCON, [facility] 09/10/2023 14:18:58 Date Care Plan Printed: 12/21/2023 Information not available 12/21/2023 Assigned Seat Cover Installer: Evelyn Mann Information not available 07/29/2023 Is [facility] The Lead Seat Cover Installer? Yes Information not available 07/29/2023 Level Of Intensity: Quarterly Information not available 07/29/2023 Team Based Care: Yes Informat ion not available 07/29/2023 Social Barrier Yes This Is Improving As She Has Recently Made 2 New Friends. Information not available 07/29/2023 Learning Barrier Yes Pt Admits To Being Forgetful But Is Very Bright. 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 Yes Information not available 07/29/2023 Food Resources Yes Informatio n not available 07/29/2023 Housing Yes Information not available 07/29/2023 Insurance Enrollment Yes Information not available 07/29/2023 Social Security/Disabili ty Yes Information not available 07/29/2023 Transportation Yes Informatio n not available 07/29/2023 Chronic Disease Management Yes Information not available 07/29/2023 Chronic Pain Management Yes Information not available 07/29/2023 Community Behavioral Services Yes Information not available 07/29/2023 Economic Services Yes Informa tion not available 07/29/2023 [employer] Yes Information not available 07/29/2023 [employer] Yes Information not available 07/29/2023 V[facility]i Yes Information not available 07/29/2023 Designated Agency Yes Pt Has A Psychiatrist And A Therapist At [facility] Information not available 07/29/2023 Providers Yes Information not available 07/29/2023 What Was The Date Of Your Most Recent Tobacco Screening? 03/18/2024 [email or web address] Information not available 03/18/2024 Has Tobacco Cessation Counseling Been Provided? No Information not available 04/02/2023 Do You Or Have You Ever Used Any Other Forms Of Tobacco Or Nicotine? No Information not available 04/02/2023 Sex: Female Functional Status None recorded. Mental Status None recorded. Family History Relationship Description Onset Age of this Age Resolved Age Notes LastModified by Organization Details LastModified Time Father No current problems or disability [email or web address] Not available 10/2022 13:25:52 Mother No current problems or disability [email or web address] Not available 10/2022 13:25:52 Medical History No medical history recorded. Gynecological History Statement/Question Response Abnormal Pap N Date of LMP 04/02/2023 Sexually Active? Y Menses Monthly N STIs/STDs N Date of Last Pap Smear 04/27/2021 Sexual Problems? N Current Control Method Implant Age at Menarche 10 Obstetrics History GPAL:G 0 P 0 0 0 0 Immunizations Vaccine Type Date Status Note Provider Nam e and Address Organization Details Recorded Time COVID-19, mRNA, LNP-S, PF, zeina-sucrose, 30 mcg/0.3 mL [address], [place], [address], [facility]. 03/19/2024 07:16:36 Influenza, split virus, trivalent, PF 4 completed ALLY BRADFORD MD [facility] [address], [place], [address], [facility] 03/19/2024 07:16:36 Tdap 8 completed Not Available [facility] 05/08/2023 05:31:25 Influenza, split virus, quadrivalent, PF 3 completed Not Available [facility] 05/08/2023 05:31:25 SARS-COV-2 (COVID-19) vaccine, UNSPECIFIED 1 completed Not Available [facility] 05/08/2023 05:31:25 SARS-COV-2 (COVID-19) vaccine, UNSPECIFIED 1 completed Not Available [facility] 05/08/2023 05:31:26 COVID-19, mRNA, LNP-S, PF, zeina-sucrose, 30 mcg/0.3 mL 3 completed Not Available [facility] 05/08/2023 05:31:26 Past Encounters Encounter ID Performer Location Encounter Start Date Encounter Closed Date Diagnosis/Indication Diagnosis SNOMED-CT Code Diagnosis ICD10 Code Diagnosis Note [id number] ALLY BRADFORD MD [address] [address] 04/02/2023 13:16:44 04/02/2023 14:37:30 Autism spectrum disorder 07396219 F84.8 Questionin g if she has this diagnosis. [facility] would be another option for referral. Referral placed at her request. Irritable bowel syndrome 39452313 K58.9 Recommende d metamucil to regulate bowels. Chronic pe lvic pain of female 489512320 R10.2 Will refer for gynecologi c evaluation of this. I do think she would benefit from pelvic floor PT, she is currently ambivalent about trying this again.She is quite clear that she feels the interstiti al cystitis is a seperate problem from the chronic pain. Chronic in terstitial cystitis 618257563 N30.10 Improved with hydroxyzin e, plan to continue. Hypermobil e Korey-Danlos syndrome 64616107 Q79.62 Meets criteria 1-3 from the diagnostic criteria for hEDS. Does not have unusual skin fragility, does not have other connective tissue disorders, has had prior neg rheum testing.Di scussed that she does have this diagnosis. Plan remains the same, working with PT and OT to optimize strength, function and minimize pain.She was grateful to receive a diagnosis. Orthostati c hypotension 33929811 I95.1 Does not meet criteria for POTS with no sustained HR over 30 bpm with 10 minutes of standing. She does meet criteria for orthostati c hypotensio n.Discusse d the role of the autonomic nervous system in maintainin g BP. Recommende d compressio n stockings, salt on food, electrolyt e mix without glucose in water, standing up slowly, regular physical exercise. [id number] ALLY BRADFORD MD [address] [address] 06/29/2023 08:08:28 06/29/2023 09:47:41 Recurrent major depression 69126868 F33.9 Supportive listening today. Stable on current medication regimen. Will continue working closely with psychiatri c providers. Gave her the info to [facility] to look into support groups or get on their wait list for care.Will have front man f/u on Lucinda referral that I had placed in March. Hypermobil e Korey-Danlos syndrome 86405624 Q79.62 Chronic pain better on gabapentin and duloxetine . [id number] ALLY BRADFORD MD [address] [address] 07/29/2023 08:58:55 07/29/2023 10:00:40 Muscle spasm of cervical muscle of neck [id number] 04 M62.838 Evidence of muscle spasm of neck. Trial muscle relaxer, heat, gentle stretching . Suggested PT when she feels she can tolerate. She would like to wait for chief electrician appointmen t first as the pelvic pain makes it hard for her to do PT.Low back likely related to muscle tension as well.Discu ssed side effects of muscle relaxer, discussed to not take and drive. Recurrent major depression 39629855 F33.9 Supportive listening today. Stable on current medication regimen. Will continue working closely with psychiatri c providers. Hemorrhoids 01556572 K64 .9 Discussed importance of daily soft BP, avoid straining and being on toilet for too long. Discussed use of preparatio n H and she can also consider getting a sitz bath. Consider miralax if needed, continue stool softener.O ffered surgery referral and she prefers to hold off for now. [id number] ALLY BRADFORD MD [address] [address] 09/10/2023 14:04:04 09/10/2023 15:19:35 Irritable bowel syndrome 77793179 K58.9 Chronic pe lvic pain of female 157123484 R10.2 She had a productive visit with urogyn. Hopeful the pessary and pelvic floor PT will help. Recurrent major depression 36256496 F33.9 Mood seems a bit brighter than previously seen. Stable on current medication regimen. Will continue working closely with psychiatri c providers. Posttrauma tic stress disorder 81398197 F43.10 Form filled out for work exemption while she works to stabilize her mental health and her pain. Chronic pain 99857829 G8 9.29 Night time muscle relaxer as needed has been helpful in improving her function. [id number] ALLY BRADFORD MD [address] [address] 10/23/2023 13:18:16 10/23/2023 14:49:54 Muscle spasm of cervical muscle of neck 8063846107 04 M62.838 Methocarba mol as been helpful for her chronic pain. Chronic pain 15799388 G8 9.29 Meloxicam has been helpful for chronic pain. Irregular intermenstrual bleeding 50220223 N92.1 This may be nexplanon side effect. R/o thyroid pathology. Mixed anxi ety and depressive disorder 277413554 F41.8 She has great insight into her triggers as well as ways to help cope. Has regular f/u with [facility] psych and therapy. Discussed she can always call here, talk to Evelyn Cardenas or me if she is struggling . Chronic pe lvic pain of female 542450047 R10.2 We discussed that there is a lot of overlap between the symptoms of prolapse as well as pelvic congestion or even endometrio sis. I think the pelvic congestion is worth looking into. I think it would be best to discuss this with urogyn and have them order the test they would prefer to evaluate this. If she doesn't want to wait that long, we can consider imaging, perhaps pelvic ultrasound with doppler done at [facility]. Congenital pes planus 23 242078 Q66.50 Will look into the custom insole process for her. I am not sure her insurance will cover this. Could see if podiatry or PT can help. [id number] ALLY BRADFORD MD [address] [address] 12/17/2023 08:14:57 12/17/2023 09:33:00 Congenital pes planus 86263836 Q66.50 - Patient has tried over-the-c ounter shoe inserts without significan t improvemen t. Custom shoe inserts are needed for better support and to help manage chronic pain.- Over-the-c ounter inserts provide minimal help, only slightly increasing the amount of time patient can be active.- Patient has EDS, which affects ligament support, necessitat ing extra support from custom inserts. Fatigue 01843926 R53.83 Likely due to chronic fatigue syndrome - Patient reports increased fatigue with moderate exercise and daily activities . Gradually work on increasing activity levels and practice activity pacing. Monitor symptoms and consider referral to physical therapy if needed. - Patient experience s significan t fatigue after about 90 minutes of standing/w alking slowly. - Recommend activity pacing: start with 45 minutes, then gradually increase to an hour, then 90 minutes over time. - Heat exacerbate s fatigue symptoms. - Check iron levels and vitamin D levels to rule out deficienci es contributi ng to fatigue. 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 Chronic pe lvic pain of female 453487584 R10.2 - Patient reports improvemen t in symptoms with the pessary, including less urgency, less bladder pain, and less muscle pain. Continue using the pessary as prescribed . [id number] ALLY BRADFORD MD [address] [address] 03/18/2024 10:02:17 03/18/2024 11:35:08 Active or passive immunization [id number] Z23 Strain of trapezius muscle 589025320 S46.811A - Refer to physical therapy for upper body exercises. - Increase methocarba mol during the day for pain relief. Vocal cord dysfunction 534736635 R49.9 - Recommend evaluation by a specialist for further assessment and management . Urge incon tinence of urine 84476963 N39.41 Pessary has helped some symptoms but still with difficulty identifyin g bladder sensations and with ongoing urge incontinen ce. May benefit from urodynamic s. Agreeable to pelvic floor PT again after urology evaluation . Autism spe ctrum disorder 10504288 F84.8 Questionin g if she has this diagnosis. [facility] would be another option for referral. Referral placed again at her request. Vitamin D deficiency 347 97821 E55.9 Recommend at least 2000 IU of vitamin D daily. Temporoman dibular joint disorder 28570193 M26.609 - Increase methocarba mol as needed for pain relief.- Recommend heat, gentle massage, and avoiding stress on the jaw.- Encourage soft foods and modified oral hygiene routine until symptoms improve. Migraine 87926704 G43.90 9 - Continue current management with acetaminop hen, dark room, cold water, and ice pack.- Consider trying other medication s like Imitrex if migraines worsen. Irritable bowel syndrome 96740520 K58.9 - Encourage patient to maintain a food and symptom log to review at next appointmen t.- Recommend trying [employer] for gas and pain relief.- Call if symptoms worsen or new symptoms develop. Goals Section Goal Description Status Start Date LastModified by Organization Details LastModified Time Pt will get Disability None Recorded Goal not achieved 024 ELDA LANG Information not available 07/29/2023 18:46:09 Pt will get a job appropriate for her None Recorded Goal not achieved 024 EVELYN MANN RN Information not available 07/29/2023 15:36:16 Health Concerns Section Related Observation LastModified by Organization Detai ls LastModified Time None Recorded Concern Status LastModified by Organization Details LastModified Time None Recorded Advance Directives Directive None Recorded Payers Encounter Date Sequence Insurance Name Policy Number Policy Zabala Covered Member ID Zabala Member ID Guarantor Name 07/29/2023 1 [facility] (MEDICAID) Izabel Madrigal [id number] Izabel Madrigal 09/10/2023 1 [facility] (MEDICAID) Izabel Lamas Rohan [id number] Wuannara Lamas Madrigal 10/23/2023 1 [facility] (MEDICAID) Colleen Libia Rohan [id number] Wurita Libia Rohan 12/17/2023 1 [facility] (MEDICAID) Izabel Lamas Madrigal [id number] Izabel Libia Rohan 03/18/2024 1 [facility] (MEDICAID) Izabel Lamas Rohan [id number] Izabel Libia Rohan Notes Date Note Type Note Provider Name and Address Organization Details Recorded Time 07/29/2023 text/html Has a cankersore in mouth, big and bothersome.Having weird low back pain if moves a certain way. Sharp electrical feeling traveling away from spine.Neck pain along the spine in the neck. Moving more because joint pain is better. Gabapentin has been helpful. Thinks the increased movement may be causing the back and neck pain to be worse.Muscle cramping in shoulders and calves. Calves when she first wakes in the morning. Not doing PT, stopped going.Pelvic pain gets in the way of doing PT.Appt with [facility] chief electrician beginning of August. Hemorrhoids. for 2 years. Saw GI on the [facility], had colo and EGD. Uses creams and wipes and not improved. Not worse. When takes stool softeners rarely gets constipated. Not straining when poops. Sometimes sits on toilet for a while though.Can see and feel the hemorrhoids. Discomfort with BMs. Mental health - states it is stable.Seeing psych at [facility] and doing therapy there too. ALLY BRADFORD MD [address], [place], [address], [facility], [facility]. 07/29/2023 13:21:29 09/10/2023 text/html Saw urogyn, has bladder and uterus prolapse, [...] safe going out on own when so disassociated.Med provider - sees briefly.Therapist, trauma informed. Finds it a better fit. ALLY BRADFORD MD [address], [place], [address], [facility] 09/11/2023 12:14:30 10/23/2023 text/html Admitted from 10/02-10/11 to the [facility] for suicidal ideation.Sees psychiatry, Vishnu Amaya ([facility]) and a therapist named Shante. At [facility], gabapentin was increased. Saw pelvic floor PT on 10/10. She notes that hearing about worsening prolapse and thinking about applying for disability felt triggering and overwhelming.Using MJ to cope and pushing off processing. Stopped smoking and everything hit her at once. She then felt suicidal and went to the ED. Jaison increase has helped improve the pain relief. metal control worker at [place] gave her more insight into applying for [...] hiking boots. Wonders about getting custom insoles. ---Pelvic pain:Has f/u with urogyn in November with pessary fitting as well.She is wondering if some of her symptoms are not related to the prolapse and may be attributable to other things. She notes pelvic heaviness and pain, worse in the adnexa and with valsalva, worse with standing and better when lying down.She also notes spotting since having the nexplanon placed last fall, this didn't happen with her first nexplanon.She looked up her symptoms and is wondering about pelvic congestion. She denies vulvar varicosities. MD [address], [place], [address], [facility]. 10/23/2023 20:52:56 12/17/2023 text/html Pessary Use - Th e patient reports that the pessary has been beneficial, noting a decrease in urgency, bladder pain, and muscle pain. She mentions an increase in urination frequency but with reduced urgency. Pes plans and hEDS- The patient has EDS and requires additional support due to ligament laxity. She needs shoe inserts due to flat feet and increased pain during activity without proper support. Rfkh-lua-ayiqtae shoe inserts were tried but found to [...] experiences presyncope symptoms. MD [address], [place], [address], [facility]. 12/17/2023 09:46:11 03/18/2024 text/html Hypermobile Korey-Danlos Syndrome (EDS) - Izabel Madrigal presents for a follow-up visit with a history of hypermobile EDS. She reports persistent chronic fatigue, which remains activity-dependent. While gabapentin has improved her functionality, she still struggles with energy levels, particularly after exercising or performing daily activities like showering. Jaw Pain - Izabel has experienced significant jaw pain, after recent dental work, describing sensations of dislocation when brushing her teeth. Methocarbamol provides some relief at night but causes drowsiness. Her diet has suffered due to jaw pain, exacerbating her fatigue and reducing her exercise capacity. Musculoskeletal Pain - Izabel describes pain in her neck, shoulder, and right arm, particularly in her right hand, which she suspects might be carpal tunnel syndrome. The pain limits her ability to type or engage in hobbies for more than 15 minutes. She experiences no numbness or tingling, just pain. Respiratory Symptoms - Izabel has noticed symptoms suggestive of vocal cord dysfunction, including difficulty breathing, throat and chest tightness, and shortness of breath, especially during exercise. She does not believe these symptoms are related to asthma. She would like evaluation for vocal cord dysfunction. Migraines - Chelseas migraines have decreased in frequency from five times a week during onset of puberty to two to four times a month. She manages them with acetaminophen, rest in a dark room, cold water, and occasionally an ice pack. Gastrointestinal Issues - She experiences severe intestinal pain three to four days a week, which is alleviated by lying down with her knees to her chest. Dietary changes have not provided relief, and she struggles with gas due to difficulty burping. Passing gas does help the pain. She also has bloating, needs to wear different sized pants when bloated. The bloating is sometimes associated with the pain but not always. She has not identified certain foods that may trigger the symptoms. Pelvic and Urinary Issues - Izabel reports that her pessary has significantly improved her pelvic organ prolapse symptoms, and hydroxyzine has helped with interstitial cystitis symptoms. However, she continues to experience bladder and urethral pain, some incontinence, and a need to stay close to a bathroom due to urgency. She describes her incontinence as urge-related, with occasional complete loss of bladder control. Disability Application - Izabel has applied for disability and is seeking further documentation and diagnoses, including an autism assessment. She has previously attempted to obtain a referral for this assessment but did not receive a call from the organization she was referred to. ALLY BRADFORD MD [address], [place], [address], [facility]. 03/19/2024 07:29:46 OBGyn Episode No OBEpisode recorded.
--- OUTSIDE RECORDS SUMMARY | 2024-05-11 18:38 | XMS_ITS | Continuity of Care Document ---
Author Organization Psych Address Unknown Care Team Providers Care Audience Development Manager Name Role Phone Trevor Wells Primary Care Physician LAVELL Li Primary Care Physician Encounter Date(s): 10/03/23 - 10/12/23 [address] [place], [place] [address] - Encounter Diagnosis Depressive disorder(Discharge Diagnosis) - 10/03/23 Adjustment disorder with depressed mood(Discharge Diagnosis) - 10/06/23 Discharge Disposition: Home or Self Care Attending Physician: WARD DREW MD Admitting Physician: WARD DREW MD Allergies, Adverse Reactions, Alerts No Known Medication Allergies Assessment and Plan Extracted from: Title:Physician Progress Note - Psychiatric Auth or:Ryan Nogueira MD Date:10/11/23 She is ready for discharge t omorrow as planned.?? And she leaves here hopeful optimistic with??access to additional services and new therapeutic direction 1.??Depressive disorder Orders: gabapentin, 600 mg = 2 cap(s), Cap, Oral, TID, Start date 10/11/23 13:00:00 EDT, Routine lidocaine topical, 15 mL, Soln, Start date 10/10/23 12:04:00 EDT, Oral, q4hr PRN mouth sore pain, Routine, 10/10/23 12:04:00 EDT Inpatient Colace, 100 mg= 1 cap(s), Oral, BID, PRN docusate sodium, 100 mg= 1 cap(s), Oral, BID DULoxetine, 40 mg= 2 cap(s), Oral, qAM gabapentin, 600 mg= 2 cap(s), Oral, TID guanFACINE, 1 mg= 1 tab(s), Oral, qHS guanFACINE, 0.5 mg= 0.5 tab(s), Oral, BID hydrOXYzine, 50 mg= 2 tab(s), Oral, qHS Lidocaine Viscous, 15 mL, Oral, q4hr, PRN melatonin, 3 mg= 1 tab(s), Oral, qHS, PRN meloxicam, 15 mg= 2 tab(s), Oral, Daily methocarbamol, 500 mg= 1 tab(s), Oral, qHS Milk of Magnesia, 30 mL, Oral, Daily, PRN Milk of Magnesia, 30 mL, Oral, Daily, PRN Mylanta, 30 mL, Oral, QID, PRN naltrexone, 50 mg= 1 tab(s), Oral, Daily Remeron, 30 mg= 2 tab(s), Oral, qHS Tylenol, 1000 mg= 2 tab(s), Oral, q6hr, PRN Vistaril, 50 mg= 1 cap(s), Oral, TID, PRN Home docusate sodium 100 mg oral capsule, 100 mg= 1 cap(s), Oral, BID gabapentin 300 mg oral capsule, 300 mg= 1 cap(s), Oral, TID guanFACINE 1 mg oral tablet, 1 mg= 1 tab(s), Oral, BID hydrOXYzine hydrochloride 25 mg oral tablet, 50 mg= 2 tab(s), Oral, qHS meloxicam 15 mg oral tablet, 15 mg= 1 tab(s), Oral, Daily methocarbamol 500 mg oral tablet, 500 mg= 1 tab(s), Oral, qHS mirtazapine 15 mg oral tablet, 30 mg= 2 tab(s), Oral, Daily naltrexone 50 mg oral tablet, 50 mg= 1 tab(s), Oral, Daily ?? I certify that inpatient psychiatric hospital admission is medically necessary for treatment which could reasonably be expected to improve the patient's condition: _ In need of ILOC due to:_ Is the patient involuntary? _ Did the patient receive a court order for involuntary medication? _ If Yes: Effects/benefits of the medication:_ Side-effects and treatment of side-effects: _ The continued implementation of the court order for involuntary medication remains necessary because: The patient still lacks capacity to make medication decisions? _ The patient is accepting medication only because of the court order? _ The implementation of the involuntary medication is still necessary? _ ?? Treatment Plan Discussed and Reviewed with Patient:_ Receiving active treatment through medication, individual, group, and milieu therapy Extracted from: Title:Physician Progress Note - Psychiatric Auth or:Ryan Nogueira MD Date:10/10/23 She is stable and working on the therapeutic goals??agreed upon. ??No medication changes 1.??Depressive disorder Orders: lidocaine topical, 15 mL, Soln, Start date 10/10/23 12:04:00 EDT, Oral, q4hr PRN mouth sore pain, Routine, 10/10/23 12:04:00 EDT No medication changes Inpatient Colace, 100 mg= 1 cap(s), Oral, BID, PRN docusate sodium, 100 mg= 1 cap(s), Oral, BID DULoxetine, 40 mg= 2 cap(s), Oral, qAM gabapentin, 600 mg= 2 cap(s), Oral, TID guanFACINE, 1 mg= 1 tab(s), Oral, qHS guanFACINE, 0.5 mg= 0.5 tab(s), Oral, BID hydrOXYzine, 50 mg= 2 tab(s), Oral, qHS Lidocaine Viscous, 15 mL, Oral, q4hr, PRN melatonin, 3 mg= 1 tab(s), Oral, qHS, PRN meloxicam, 15 mg= 2 tab(s), Oral, Daily methocarbamol, 500 mg= 1 tab(s), Oral, qHS Milk of Magnesia, 30 mL, Oral, Daily, PRN Milk of Magnesia, 30 mL, Oral, Daily, PRN Mylanta, 30 mL, Oral, QID, PRN naltrexone, 50 mg= 1 tab(s), Oral, Daily Remeron, 30 mg= 2 tab(s), Oral, qHS Tylenol, 1000 mg= 2 tab(s), Oral, q6hr, PRN Vistaril, 50 mg= 1 cap(s), Oral, TID, PRN Home docusate sodium 100 mg oral capsule, 100 mg= 1 cap(s), Oral, BID gabapentin 300 mg oral capsule, 300 mg= 1 cap(s), Oral, TID guanFACINE 1 mg oral tablet, 1 mg= 1 tab(s), Oral, BID hydrOXYzine hydrochloride 25 mg oral tablet, 50 mg= 2 tab(s), Oral, qHS meloxicam 15 mg oral tablet, 15 mg= 1 tab(s), Oral, Daily methocarbamol 500 mg oral tablet, 500 mg= 1 tab(s), Oral, qHS mirtazapine 15 mg oral tablet, 30 mg= 2 tab(s), Oral, Daily naltrexone 50 mg oral tablet, 50 mg= 1 tab(s), Oral, Daily ?? I certify that inpatient psychiatric hospital admission is medically necessary for treatment which could reasonably be expected to improve the patient's condition: Yes_ In need of ILOC due to:_Suicidal expression Is the patient involuntary? _No ?? Treatment Plan Discussed and Reviewed with Patient:??Yes_ Receiving active treatment through medication, individual, group, and milieu therapy October 11 Extracted from: Title:Physician Progress Note - Psychiatric Auth or:Ryan Nogueira MD Date:10/09/23 The combination of??psychoth erapeutic??engagement with??medication modification??are proving to be effective.?? There has been a significant improvement in her??mood thinking and outlook??during this week of hospitalization.?? We will complete the medication renovation??this weekend and??the discharge is planned for Thursday.?? I have??sent the prescriptions for the gabapentin to??her selected pharmacy. ??She says she has supply of all??other maintenance medication. 1.??Depressive disorder Adjustment disorder with disturbed mood Orders: acetaminophen, 1,000 mg = 2 tab(s), Tab, Oral, q6hr PRN pain, Start date 10/09/23 11:38:00 EDT, Routine gabapentin, 300 mg = 1 cap(s), Oral, TID, # 42 cap(s), 0 Refill(s), Pharmacy: [id number], 172.2, cm, 10/03/23 21:08:00 EDT, Height/Length Dosing, 70.76, kg, 10/03/23 21:08:00 EDT, Weight Dosing Discharge??October 11 Inpatient Colace, 100 mg= 1 cap(s), Oral, BID, PRN docusate sodium, 100 mg= 1 cap(s), Oral, BID DULoxetine, 40 mg= 2 cap(s), Oral, qAM gabapentin, 600 mg= 2 cap(s), Oral, TID guanFACINE, 1 mg= 1 tab(s), Oral, qHS guanFACINE, 0.5 mg= 0.5 tab(s), Oral, BID hydrOXYzine, 50 mg= 2 tab(s), Oral, qHS melatonin, 3 mg= 1 tab(s), Oral, qHS, PRN meloxicam, 15 mg= 2 tab(s), Oral, Daily methocarbamol, 500 mg= 1 tab(s), Oral, qHS Milk of Magnesia, 30 mL, Oral, Daily, PRN Milk of Magnesia, 30 mL, Oral, Daily, PRN Mylanta, 30 mL, Oral, QID, PRN naltrexone, 50 mg= 1 tab(s), Oral, Daily Remeron, 30 mg= 2 tab(s), Oral, qHS Tylenol, 1000 mg= 2 tab(s), Oral, q6hr, PRN Vistaril, 50 mg= 1 cap(s), Oral, TID, PRN Home docusate sodium 100 mg oral capsule, 100 mg= 1 cap(s), Oral, BID gabapentin 300 mg oral capsule, 300 mg= 1 cap(s), Oral, TID guanFACINE 1 mg oral tablet, 1 mg= 1 tab(s), Oral, BID hydrOXYzine hydrochloride 25 mg oral tablet, 50 mg= 2 tab(s), Oral, qHS meloxicam 15 mg oral tablet, 15 mg= 1 tab(s), Oral, Daily methocarbamol 500 mg oral tablet, 500 mg= 1 tab(s), Oral, qHS mirtazapine 15 mg oral tablet, 30 mg= 2 tab(s), Oral, Daily naltrexone 50 mg oral tablet, 50 mg= 1 tab(s), Oral, Daily ?? I certify that inpatient psychiatric hospital admission is medically necessary for treatment which could reasonably be expected to improve the patient's condition: _Yes ?? In need of ILOC due to:??Yes_ Is the patient involuntary??? No_ ?? Treatment Plan Discussed and Reviewed with Patient:??Yes_ Receiving active treatment through medication, individual, group, and milieu therapy As above Extracted from: Title:Physician Progress Note - Psychiatric Auth or:Ryan Nogueira MD Date:10/08/23 We will continue with the tw ofold??treatment plan??with medication adjustments??and therapeutic redirection 1.??Depressive disorder Orders: gabapentin, 600 mg = 2 cap(s), Cap, Oral, TID, Start date 10/09/23 8:00:00 EDT, Routine gabapentin, 500 mg = 5 cap(s), Cap, Oral, TID, Start date 10/08/23 13:00:00 EDT, Stop date 10/09/23 0:01:00 EDT, Routine Orders have been written for the medication adjustment??and she will be seeing the psychologist later today Inpatient Colace, 100 mg= 1 cap(s), Oral, BID, PRN docusate sodium, 100 mg= 1 cap(s), Oral, BID DULoxetine, 40 mg= 2 cap(s), Oral, qAM gabapentin, 500 mg= 5 cap(s), Oral, TID gabapentin, 600 mg= 2 cap(s), Oral, TID guanFACINE, 1 mg= 1 tab(s), Oral, qHS guanFACINE, 0.5 mg= 0.5 tab(s), Oral, BID hydrOXYzine, 50 mg= 2 tab(s), Oral, qHS melatonin, 3 mg= 1 tab(s), Oral, qHS, PRN meloxicam, 15 mg= 2 tab(s), Oral, Daily methocarbamol, 500 mg= 1 tab(s), Oral, qHS Milk of Magnesia, 30 mL, Oral, Daily, PRN Milk of Magnesia, 30 mL, Oral, Daily, PRN Mylanta, 30 mL, Oral, QID, PRN naltrexone, 50 mg= 1 tab(s), Oral, Daily Remeron, 30 mg= 2 tab(s), Oral, qHS Tylenol, 650 mg= 2 tab(s), Oral, q4hr, PRN Vistaril, 50 mg= 1 cap(s), Oral, TID, PRN Home docusate sodium 100 mg oral capsule, 100 mg= 1 cap(s), Oral, BID gabapentin 300 mg oral capsule, 300 mg= 1 cap(s), Oral, TID guanFACINE 1 mg oral tablet, 1 mg= 1 tab(s), Oral, BID hydrOXYzine hydrochloride 25 mg oral tablet, 50 mg= 2 tab(s), Oral, qHS meloxicam 15 mg oral tablet, 15 mg= 1 tab(s), Oral, Daily methocarbamol 500 mg oral tablet, 500 mg= 1 tab(s), Oral, qHS mirtazapine 15 mg oral tablet, 30 mg= 2 tab(s), Oral, Daily naltrexone 50 mg oral tablet, 50 mg= 1 tab(s), Oral, Daily ?? I certify that inpatient psychiatric hospital admission is medically necessary for treatment which could reasonably be expected to improve the patient's condition: Yes_ In need of ILOC due to:_Depression Is the patient involuntary??? No_ ?? Treatment Plan Discussed and Reviewed with Patient:_Yes Receiving active treatment through medication, individual, group, and milieu therapy October 11 Extracted from: Title:History & Physical - Psychiatric Author:Aria Jara, ANODE MACHINE OPERATOR Date:10/04/23 Reason for Admission SI Substance Abuse History reports history of alcohol abuse sober since May. uses Marijuana weekly denies any other drug use Mental Status Exam Appearance BH:??dressed appropriately for age and seasonhygiene intact__ Psychomotor Behavior:??wnl Speech:??nrml rate rhythm and volume Speech Articulation:??wnl Eye Contact:??wnl Behavior:??calm,??cooperative,??engaged_ Affect Range:??broad Affect:??dysphoric Mood:??depressed Hallucinations:??none Delusions:??none Thought Content:??logical__ Thought Process:??clear, coherent, goal directed___ Judgment:??impaired Insight:??intact Level of Consciousness:??alert Memory/concentration:??intact__ Suicidal Ideation:?denies ? Assessment/Plan Patient reports feeling depressed, hopeless and had been having suicidal thoughts to overdose secondary to medical illness of Clayton Kaiser. States it took over 10 years for her to be diagnosed and now she suffers with joint/muscle pain and?? urinary incontinence. States this disorder is slowly progressive and she worries about her future. She c/o sexual dysfunction with painful intercourse related to this disorder. She has history of suicidal attempt around age 13. Her mother is supportive. She is currently prescribed Cymbalta, Neurontin, Remeron, Vistaril, Guanfacine, and Naltrexone. she is requesting voluntary hospitalization. She is placed on 15 min checks for safety/stabilization. She is encouraged to attend programming. We will contact outpatient providers for collateral and continuity of care and work with patient on discharge planning Diagnosis 1.??Depressive disorder Functional Status 10/11/23 ADLs Independent Medications docusate sodium 100 mg oral capsule 100 mg = 1 cap(s), Oral, BID Start Date: 10/03/23 Status: Ordered gabapentin 300 mg oral capsule 600 mg = 2 cap(s), Oral, TID, # 84 cap(s), 0 Refill(s), Pharmacy: [id number], 172.2, cm, 10/03/23 21:08:00 EDT, Height/Length Dosing, 70.76, kg, 10/03/23 21:08:00 EDT, Weight Dosing Start Date: 10/12/23 Stop Date: 10/26/23 Status: Ordered guanFACINE 1 mg oral tablet 1 mg = 1 tab(s), Oral, BID Start Date: 10/03/23 Status: Ordered hydrOXYzine hydrochloride 25 mg oral tablet 50 mg = 2 tab(s), Oral, qHS Start Date: 10/03/23 Status: Ordered meloxicam 15 mg oral tablet 15 mg = 1 tab(s), Oral, Daily Start Date: 10/03/23 Status: Ordered methocarbamol 500 mg oral tablet 500 mg = 1 tab(s), Oral, qHS Start Date: 10/03/23 Status: Ordered mirtazapine 15 mg oral tablet 30 mg = 2 tab(s), Oral, Daily Start Date: 10/03/23 Status: Ordered naltrexone 50 mg oral tablet 50 mg = 1 tab(s), Oral, Daily Start Date: 10/03/23 Status: Ordered Mental Status 10/12/23 Level of Consciousness Alert Orientation Assessment Oriented x 4 Vital Signs Most recent to oldest [Reference Range]: 1 2 3 Temperature Skin [36-37 DegC] 36.4 DegC (10/05/23 8:11 AM) Temperature Temporal Artery [36.3-37.8 DegC] 37.0 DegC (10/12/23 7:05 AM) 36.6 DegC (10/11/23 7:44 AM) 36.5 DegC (10/10/23 8:44 AM) Peripheral Pulse Rate [60-100 bpm] 89 bpm (10/12/23 7:05 AM) 79 bpm (10/11/23 7:44 AM) 88 bpm (10/10/23 8:44 AM) Respiratory Rate [14-20 br/min] 17 br/min (10/10/23 8:44 AM) 16 br/min (10/08/23 8:45 AM) 17 br/min (10/05/23 8:11 AM) Blood Pressure [90-140/60-90 mmHg] 123/82mmHg (10/12/23 7:05 AM) 114/67mmHg (10/11/23 7:44 AM) 120/77mmHg (10/10/23 8:44 AM) Mean Arterial Pressure, Cuff 88 mmHg (10/08/23 8:45 AM) Social History Social History Type Response Sex Female Hospital Discharge Instructions Patient Education 10/12/2023 11:29:41 Adjustment Disorder, Adult Adjustment Disorder, Adult Adjustment disorder is a group of symptoms that can develop after a stressful life event, such as the loss of a job or a serious physical illness. The symptoms can affect how you feel, think, and act. They may also interfere with your relationships. Adjustment disorder increases your risk of suicide and substance abuse. If adjustment disorder is not managed early, it can make medical conditions that you already have worse. If the stressful life event persists, the disorder may continue and become a persistent form of adjustment disorder. What are the causes? This condition is caused by difficulty recovering from or coping with a stressful life event. What increases the risk? You are more likely to develop this condition if: ??? You have had previous problems coping with life stressors. ??? You are being treated for a long-term (chronic) illness. ??? You are being treated for an illness that cannot be cured (terminal illness). ??? You have a family history of mental illness. What are the signs or symptoms? Symptoms of this condition include: ??? Behavioral symptoms such as: ??? Trouble doing daily tasks. ??? Reckless driving. ??? Poor work performance. ??? Ignoring bills. ??? Avoiding family and friends. ??? Impulsive actions. ??? Emotional symptoms such as: ??? Sadness, depression, or crying spells. ??? Worrying a lot, or feeling nervous or anxious. ??? Loss of enjoyment. ??? Feelings of loss or hopelessness. ??? Irritability. ??? Thoughts of suicide. ??? Physical symptoms such as: ??? Change in appetite or weight. ??? Complaining of feeling sick without being ill. ??? Feeling dazed or disconnected. ??? Nightmares. ??? Trouble sleeping. Symptoms of this condition start within 3 months of the stressful event. They do not last more than6 months, unless the stressful circumstances last longer. Normal grieving after the of a loved one is not a symptom of this condition. How is this diagnosed? To diagnose this condition, your health care provider will ask about what has happened in your lifeand how it has affected you. He or she may also ask about your medical history and your use of medicines, alcohol, and other substances. Your health care provider may do a physical exam and order labtests or other studies. You may be referred to a mental health specialist. How is this treated? Treatment options for this condition include: ??? Counseling or talk therapy. Talk therapy is usually provided by mental health specialists. Thistherapy may be individual or may involve family members. ??? Medicines. Certain medicines may help with depression, anxiety, and sleep. ??? Support groups. These offer emotional support, advice, and guidance. They are made up of peoplewho have had similar experiences. ??? Observation and time. This is sometimes called watchful waiting. In this treatment, health careproviders monitor your health and behavior without other treatment. Adjustment disorder sometimes gets better on its own with time. Follow these instructions at home: ??? Take [id number] and prescription medicines only as told by your health care provider. ??? Keep all follow-up visits. This is important. ??? Contact trusted family and friends for support. Let them know what is going on with you and howthey can help. Contact a health care provider if: ??? Your symptoms do not improve in 6 months. ??? Your symptoms get worse. Get help right away if: ??? You have serious thoughts about hurting yourself or someone else. If you ever feel like you may hurt yourself or others, or have thoughts about taking your own life,get help right away. Go to your nearest emergency department or: ??? Call your local emergency services (911 in the [place] ??? Call a suicide crisis helpline, such as the National Suicide Prevention Lifeline at or 424 in the [place] This is open 24 hours a day in the [place] ??? Text the Crisis Text Line at 898212 (in the [place] Summary ??? Adjustment disorder is a group of symptoms that can develop after a stressful life event, such as the loss of a job or a serious physical illness. The symptoms can affect how you feel, think, andact. They may interfere with your relationships. ??? Symptoms of this condition start within 3 months of the stressful event. They do not last more than 6 months, unless the stressful circumstances last longer. ??? Treatment may include talk therapy, medicines, participation in a support group, or observationto see if symptoms improve. ??? Contact your health care provider if your symptoms get worse or do not improve in 6 months. ??? If you ever feel like you may hurt yourself or others, or have thoughts about taking your own life, get help right away. This information is not intended to replace advice given to you by your health care provider. Make sure you discuss any questions you have with your health care provider. Document Revised: 11/06/2021 Document Reviewed: 08/24/2020 [employer] Patient Education ?? 2022 [employer]. Physician Progress Note * Ryan Nogueira MD: PERFORM Event Display: Physician Progress Note Authored Date: [id number] Progress Note Subjective/24 Hour Events We meet outside the??[facility]??including her primary nurse.?? She is stepped out of a group??and is eager to return.?? She says that she is all set for??discharge tomorrow at noon.?? She continues to feel better and more optimistic??and wants to continue the medications as??currently administered.?? She has nothing else??of concern??and is eager to return to the group.?? She smiles??several times during this brief conversation. Review of Systems The salt water washes recommended by the nurse have been very helpful in managing her??oral sore. Objective Vitals & Measurements T:??36.6?C??(Temporal Artery)?? HR:??79??(Peripheral)?? BP:??114/67?? SpO2:??100%?? Mental Status Examination The patient is alert??and oriented in all 4 spheres,??and to situation.?? They are appropriately dressed??with acceptable hygiene.?? The behavior is appropriate and they are engaged in the interview.?? Psychomotor energy is normal and there are no tics,??tremors, or involuntary movements.?? Gait ismore fluid, there is improved head and neck mobility,??and improved facial mobility??engagement andsmiling. ??Speech??is normal rafael, tone, and volume??without conversational lag.?? Mood remains??good??and affect is congruent and appropriate. ??Her mood is definitely??improved??and more at a?? desirable baseline??she thinks. ??She smiled several times during this interview. ??Thought processis logical and goal oriented, sequential in nature??with tight associations??and it is future oriented.?? Thought content is without??expressed or observed??hallucination or delusion. ??Memory is intact to recent events as tested by known items. There is no self-harm expression.?There is no suicidal or homicidal expression.? Insight and judgment are fair, attention and concentration are intact.??Impulse control is intact. ??Knowledge is appropriate for level of education. Results None pending Assessment/Plan She is ready for discharge tomorrow as planned.?? And she leaves here hopeful optimistic with??access to additional services and new therapeutic direction Diagnosis 1.??Depressive disorder Orders: gabapentin, 600 mg = 2 cap(s), Cap, Oral, TID, Start date 10/11/23 13:00:00 EDT, Routine lidocaine topical, 15 mL, Soln, Start date 10/10/23 12:04:00 EDT, Oral, q4hr PRN mouth sore pain, Routine, 10/10/23 12:04:00 EDT Medications Inpatient Colace, 100 mg= 1 cap(s), Oral, BID, PRN docusate sodium, 100 mg= 1 cap(s), Oral, BID DULoxetine, 40 mg= 2 cap(s), Oral, qAM gabapentin, 600 mg= 2 cap(s), Oral, TID guanFACINE, 1 mg= 1 tab(s), Oral, qHS guanFACINE, 0.5 mg= 0.5 tab(s), Oral, BID hydrOXYzine, 50 mg= 2 tab(s), Oral, qHS Lidocaine Viscous, 15 mL, Oral, q4hr, PRN melatonin, 3 mg= 1 tab(s), Oral, qHS, PRN meloxicam, 15 mg= 2 tab(s), Oral, Daily methocarbamol, 500 mg= 1 tab(s), Oral, qHS Milk of Magnesia, 30 mL, Oral, Daily, PRN Milk of Magnesia, 30 mL, Oral, Daily, PRN Mylanta, 30 mL, Oral, QID, PRN naltrexone, 50 mg= 1 tab(s), Oral, Daily Remeron, 30 mg= 2 tab(s), Oral, qHS Tylenol, 1000 mg= 2 tab(s), Oral, q6hr, PRN Vistaril, 50 mg= 1 cap(s), Oral, TID, PRN Home docusate sodium 100 mg oral capsule, 100 mg= 1 cap(s), Oral, BID gabapentin 300 mg oral capsule, 300 mg= 1 cap(s), Oral, TID guanFACINE 1 mg oral tablet, 1 mg= 1 tab(s), Oral, BID hydrOXYzine hydrochloride 25 mg oral tablet, 50 mg= 2 tab(s), Oral, qHS meloxicam 15 mg oral tablet, 15 mg= 1 tab(s), Oral, Daily methocarbamol 500 mg oral tablet, 500 mg= 1 tab(s), Oral, qHS mirtazapine 15 mg oral tablet, 30 mg= 2 tab(s), Oral, Daily naltrexone 50 mg oral tablet, 50 mg= 1 tab(s), Oral, Daily Physician Re-Certification of Medical Necessity ?? I certify that inpatient psychiatric hospital admission is medically necessary for treatment which could reasonably be expected to improve the patient's condition: _ In need of ILOC due to:_ Is the patient involuntary? _ Did the patient receive a court order for involuntary medication? _ If Yes: Effects/benefits of the medication:_ Side-effects and treatment of side-effects: _ The continued implementation of the court order for involuntary medication remains necessary because: The patient still lacks capacity to make medication decisions? _ The patient is accepting medication only because of the court order? _ The implementation of the involuntary medication is still necessary? _ Treatment Plan: ?? Treatment Plan Discussed and Reviewed with Patient:_ Receiving active treatment through medication, individual, group, and milieu therapy Electronically Signed By: Ryan Nogueira MD Date and Time Signed: 10/11/23 11:32 EDT * Ryan Nogueira MD: PERFORM Event Display: Physician Progress Note Authored Date: [id number] Progress Note Subjective/24 Hour Events We meet outside of the [facility]??where??the patient has just stepped out of a group??and is looking??to return quickly to the??group meeting.?? She says that things are going well and that she is??planning for the discharge on Thursday.?? She selects 930 for the discharge time.?? She says she hasno complaints and that things are going well.?? She does have a??canker sore??on the left side and she talks with nurse about some topical??medication for it.?? 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
--- OUTSIDE RECORDS SUMMARY | 2024-05-11 18:39 | XMS_ITS | Encounter Summary ---
Author Organization [facility] Address [facility] [place] [address] Care Team Providers Care Medical Certification Specialist Name Role Phone Ally Bradford MD Primary Care Provider [phone] Reason for Visit * Reason Comments Follow-up Pessary Fitting Encounter Details Date Type Department Care Team (Late st Contact Info) Description 12/01/2023 3:40 PM EDT Office Visit Obstetrics [place] [phone] Kymberly Zavala [place]NS[place]IP CLERK [facility] [place] [address] Encounter for fitting and adjustment of pessary [...] ??C (97.8 ??F) (Temporal) SpO2 98% A tensile tester is present for the examination. General: Appears [...] of pessary fit or sooner prn. Kymberly Zavala APRN Division of Female Pelvic Medicine and Reconstructive Surgery * Susy Buckner LNA - 12/01/2023 3:40 PM EDT Examination chaperoned by PRITESH Salgado. documented in this encounter Plan of Treatment Upcoming Encounters Date Type Department Care Team (Late st Contact Info) Description 09/06/2024 2:15 PM EDT Scheduled View Only Obstetrics [place] [address] Nurse, Grecia MCLAUGHLIN RN 09/06/2024 2:40 PM EDT Office Visit Obstetrics [place] [address] Kymberly Zavala, NILAM [facility] [place] [address] documented as of this encounter Visit Diagnoses Diagnosis Encounter for fitting and adjustment of pessary Fitting and adjustment of other device documented in this encounter Care Teams Medical Certification Specialist Relationship Specialty Start Date End Date Ally Bradford MD [address] [place] [address] PCP - General Family Medicine 09/01/23 documented as of this encounter
--- OUTSIDE RECORDS SUMMARY | 2024-05-11 18:39 | XMS_ITS | Encounter Summary ---
Author Organization [facility] [place] [address] Care Team Providers Care Bulk Station Agent Name Role Phone Ally Bradford MD Primary Care Provider [phone] Reason for Visit * Reason Comments Pessary Check Encounter Details Date Type Department Care Team ([facility] Contact Info) Description 03/07/2024 4:00 PM EST Office Visit Obstetrics [place] [phone] Jeane Quiñonez MD [facility] [place] [address] Pelvic floor dysfunction; Nexplanon in place; Cystocele, unspecified Social History Tobacco Use Types Packs/Day Years Used Date Smoking Tobacco: Never Smokeless Tobacco: Never Sex and Gender Information Value Date Recorded Sex Assigned at Not on file Gender Identity Not on file Sexual Orientation Not on file documented as of this encounter Last Filed Vital Signs Vital Sign Reading Time Taken Comments Blood Pressure 100/68 03/07/2024 3:53 PM EST Pulse - - Temperature - - Respiratory Rate - - Oxygen Saturation - - Inhaled Oxygen Concentration - - Weight 79.7 kg (175 lb 11.2 oz) 03/07/2024 3:55 PM EST Height - - Body Mass Index 26.72 09/01/2023 8:03 AM EDT documented in this encounter Progress Notes * Jeane Quiñonez MD - 03/07/2024 4:00 PM EST VISIT TYPE: Pessary follow-up visit 03/07/2024 Izabel Madrigal [id number] She was previously diagnosed with: Uterovaginal prolapse, primarily anterior wall Chronic pelvic pain interstitial cystitis/bladder pain syndrome (IC/BPS) Overactive bladder Chronic constipation Hypertonic pelvic floor PESSARY TYPE: Ring with Support size 3 SUBJECTIVE: Ms. Madrigal returns for a pessary follow up check. This was placed in 11/2023 and she is here for her first follow up appointment. History of Ehler's Danlos. The patient is really happy with the pessary. Mostly leaves it in, but has taken it out to have a bowel movement. Couldn't have one with it but only happened a couple of times when she was constipated. Takes a stool softeners Went to pelvic floor physical therapy but the therapist left the practice. Baljit went for 3 months and feels confident she can do the exercises on her own. Doing well. No concerns today. Using Nexplanon. Has irregular spotting. OBJECTIVE: General: In no acute distress. External Genitalia: Within normal limits Urethra: Midline Cervix / Vagina: normal, no abnormal discharge. Rectal: deferred. Pessary removed, cleaned and replaced. ASSESSMENT: Prolapse, managing well with pessary PLAN: 6 months follow up, sooner PRN I have spent a total time of 30 minutes on this patient encounter on the day of visit, including pre-charting time, patient time, and post-service wrap-up. Jeane Quiñonez MD documented in this encounter Plan of Treatment Upcoming Encounters Date Type Department Care Team (Late st Contact Info) Description 09/06/2024 2:15 PM EDT Scheduled View Only Obstetrics [place] [address] Nurse, Grecia MCLAUGHLIN, RN 09/06/2024 2:40 PM EDT Office Visit Obstetrics [place] [address] Kymberly Zavala, COTTON BALL MACHINE TENDER [facility] [place] [address] documented as of this encounter Visit Diagnoses Diagnosis Pelvic floor dysfunction Pelvic muscle wasting Nexplanon in place Presence of subdermal contraceptive device Cystocele, unspecified documented in this encounter Care Teams Bulk Station Agent Relationship Specialty Start Date End Date Ally Bradford MD [address] [place] [address] PCP - General Family Medicine 09/01/23 documented as of this encounter
--- OUTSIDE RECORDS SUMMARY | 2024-05-11 18:39 | XMS_ITS | Encounter Summary ---
Author Organization [facility] [place] [address] Care Team Providers Care Grinder Set Up Operator Thread Tool Name Role Phone Unavailable Primary Care Provider Unavailabl e Reason for Referral * Consultation (Routine) - Closed Specialty Diagnoses / Procedures Referred By Bobby roche Referred To Contact Urology Diagnoses Pelvic and perineal pain Batch Dumper Ally Bradford MD [address] [place] [address] [facility] Academic Physician [address] [place] [address] Referral ID Status Reason Start Date Expiration Date V isits Requested Visits Authorized [id number] Closed Consult, Test & Treat PCP Updated and/or Approved 04/11/2023 04/10/2024 6 6 Encounter Details Date Type Department Care Team (Latest Contact Info) Description 04/11/2023 Transcribe Orders eDH Incoming Referrals [phone] Ally Bradford MD [address] [place], [place] [id number] Pelvic pain syndrome Social History Tobacco Use [...] Scheduled View Only Obstetrics [place] [address] Nurse, Obgyn II, RN 09/06/2024 2:40 PM EDT Office Visit Obstetrics [place] [address] Kymberly Zavala, NILAM [facility] [place] [address] Scheduled Referrals Name Type Priority Associated Diagnoses Order Schedule Referral to Urogynecology Outpatient Referral Routine Pelvic pain syndrome Ordered: 04/11/2023 documented as of this encounter Visit Diagnoses Diagnosis Pelvic pain syndrome Pelvic congestion syndrome documented in this encounter
--- OUTSIDE RECORDS SUMMARY | 2024-05-11 18:39 | XMS_ITS | Continuity of Care Document ---
Author Organization [facility] Address [address] [place] [address] Care Team Providers Care Crab Picker Name Role Phone ALLY BRADFORD Primary Care Provider [phone] [facility] OTHER [facility] Psychiatrist ELDA LANG Community Health Worker Assessment Encounter Date Assessment Date Assessment LastModified by Organization Details LastModified Time 03/18/2024 03/18/2024 Izabel Madrigal, with a history [...] devoted to today's encounter, including both the xinh-it-gaiy time with the patient and/or family/caregiver and dva-gcyw-iw-face time I personally spent is 43 minutes. 38 minutes face to face time and 5 minutes documentation. eoleson Not available 03/19/2024 07:29:05 Plan of Treatment Reminders Order Date Submit Date Provider Last Modified By Organization Details Last Modified Time Details Appointments Offic e Visit 40 2024 11:50A M Ally Bradford Not available Not available Not available Chron Care Coord inato r 60 2024 01:00P Renzo Alejandro Chronic Insurance Office Supervisor Not available Not available Not available Lab None recor ded. Referral psych ologi st refer [facility] - needs kenzie m brunojustine giovanna 2023 [facility], [address] [place] [address], [address], 03/21/2024 08:11:33 otola levar tuttle t refer [facility] - emily rn for vocal cord dysfu nctio n, hojuan diego eness , claus ng when talki ng, dyspn ea, cough 2023 [facility], [address] [place] [address] , [place], [address], 03/21/2024 08:28:26 physi rip thera pist refer ral 2023 NADIAHerman Brown PT, [address] [place] [address] , [place], [address], 03/18/2024 14:00:06 urogy necol ogist refer [facility] - 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 Pessa ry has helpe d but still havin g signi fican t incon tinen ce. Doesn 't feel urge to void until bladd er is full. May need urody namic s. 2023 [facility] , [place], [address], 03/21/2024 08:28:38 Procedures None recor ded. Surgeries None recor ded. Imaging None recor ded. Medication Orders None recor ded. Patient TargetsNo targets recorded. Patient Instructions Encounter Date Encounter Id Patient Instructions Last Modified By Organization Details Last Modified Time 03/18/2024 [id number] Dear Izabel, Thank you for visiting my office. Your [...] - Autism Assessment: - Another referral to [facility]. Please keep me updated on [...] of trapezius muscle Referring Physician: Ally Bradford Family Medicine, Encounter Date: 03/18/2024 Dye Weigher Helper Referral fo r Vocal cord dysfunction concern for vocal cord dysfunction, hoarseness, choking when talking, dyspnea, cough Referring Physician: Family Alexandra Medicine, Encounter Date: 03/18/2024 Urogynecologist Referral for Urge incontinence of urine complicated history of hEDS, prolapse, has pessary, interstitial cystitis. Pessary has helped but still having significant incontinence. Doesn't feel urge to void until bladder is full. May need urodynamics. Referring Physician: Family Alexandra Medicine, Encounter Date: 03/18/2024 Psychologist Referral for Au tism spectrum disorder needs autism assessment Referring Physician: Ally Bradford, Family Medicine, Encounter Date: 03/18/2024 Problems Name Problem SNOMED Code Status Onset Date Resolution Date Notes Provider Name and Address Organization Details Recorded Time Strain of trapezius muscle 841852234 Active [address], [place], [address], [facility] 4 11:04:10 Vocal cord dysfunction 474421845 Active [address], [facility] [address], [facility] 4 11:06:25 Urge incontinenc e of urine 72655522 Active [address], [facility] [address], [facility] 4 11:17:55 Temporomand ibular joint disorder 71400835 Active [address], [place], [address], [facility] 4 07:24:21 Migraine 20662978 Active [address], [facility] [address], [facility] 4 07:25:37 Dysphagia 84062927 Active 2023 JONO SOTO MA null, [facility] 4 16:30:12 Repeat prescriptio n monitoring Active 2022 Sheyla Zuleta null, [facility] 4 15:25:41 Mixed anxiety and depressive disorder 287739351 Active 2022 WILBER TAVERAS RN null, [facility] 3 08:00:59 Pain in lower limb 47984910 Active 2022 WILBER TAVERAS RN null, [facility] 3 08:01:12 Dysmenorrhe a 368060353 Active 2022 WILBER TAVERAS RN null, [facility] 3 08:01:29 Posttraumat ic stress disorder 44080399 Active 2022 WILBER TAVERAS RN null, [facility] 3 09:33:12 Alcoholism 2017130 Active 2022 WILBER TAVERAS RN null, [facility] 3 09:33:27 Irritable bowel syndrome 62281627 Active 2022 WILBER TAVERAS RN null, [facility] 3 09:33:41 Chronic interstitia l cystitis 307396667 Active 2022 WILBER TAVERAS RN null, [facility] 3 09:34:17 Autism spectrum disorder 60497029 Active [address], [place], [address], [facility] 3 14:09:06 Chronic pelvic pain of female 683409696 Active [address], [place], [address], [facility] 3 14:22:52 Hypermobile Korey-Danl os syndrome 69445628 Active [address], [place], [address], [facility] 3 14:11:53 Orthostatic hypotension 12387542 Active [address], [place], [address], [facility] 3 14:31:02 Irritable bowel syndrome with diarrhea 220189401 Active 2022 Bernardaher Richards [facility], [facility] 4 18:08:13 Slow transit constipatio n 85850786 Active 2022 [facility], [facility] 4 18:08:26 Alcohol dependence 80879754 Active 2022 [facility] 4 18:07:27 Recurrent major depression 66400927 Active 2022 [facility], [facility] 4 18:08:21 Chronic pain 65072600 Active 2022 [facility] 4 18:08:01 Muscle spasm of cervical muscle of neck 146553641537 Active 2023 Sheyla Zuleta [facility], [facility] 4 15:25:48 Hemorrhoids 69343361 Active 2023 Sheyla Zuleta [facility], [facility] 4 15:25:46 Overactive urinary bladder 626738838 Active 2023 JONO SOTO MA null, [facility] 4 09:48:23 Chronic constipatio n 056068864 Active 2023 JONO SOTO MA null, [facility] 4 09:48:59 Pain in pelvis 93847235 Active [address], [place], [address] , [facility] 4 12:02:25 Irregular intermenstr ual bleeding 36067623 Active [address], [place], [address] , [facility] 4 14:10:57 Congenital pes planus 41243293 Active [address], [facility] [address], [facility] 4 20:49:20 Fatigue 10278674 Active [address], [facility] [address], [facility] 4 08:49:46 Vitamin D deficiency 80785501 Active [address], [facility] [address] , [facility] 4 16:31:51 Problem Notes None recorded. Procedures Surgical History Date Name Laterality Status Provider Name and Address Organization Details Recorded Time 2 Date of Last Pap Smear completed WILBER TAVERAS RN [facility] 04/02/2023 13:26:31 extraction of wisdom tooth completed JONO SOTO MA [facility] 06/29/2023 08:18:51 Imaging Results None recorded. Procedure Notes None recorded. Medical Equipment None Reported. Allergies Allergen ID Allergen Name Allergen Category Reaction Reaction Severity Criticality Documentation Date Start Date Code Code System Note Provider Name and Address Organization Details Recorded Time 71027 droperido l medicatio n Not available Not available [facility] 09/10/2023 3648 RxNorm akath isia MD [address], [facility] [address] , [facility] 4 14:53:29 Medications Name Sig Start Date Stop [...] BY MOUTH EVERY DAY IN THE MORNING 12/07 /2023 completed Not Available Not Available Not Available [...] Organization Details Last Updated DateTime 172.72 cm 27.2 kg/m2 96086.0 3 g 96.9 [degF] 99 % 99 % 97 /min 130 mm[Hg] 80 mm[Hg] JONO SOTO MA [facility] 10:36:28 Social History Question Answer Notes LastModified by Organization Details LastModified Time Tobacco Smoking Status Never Smoker Smokes marijuana. JONO SOTO MA [facility], [facility] 09/10/2023 14:18:58 Date Care Plan Printed: 12/21/2023 Information not available 12/21/2023 Assigned Insurance Office Supervisor: Evelyn ordaz Information not available 07/29/2023 Is [facility] The Lead Insurance Office Supervisor? Yes Information not available 07/29/2023 Level Of [...] Her Mom Information not available 07/29/2023 Community Web Production Artist Yes Information not available 07/29/2023 Food Resources [...] Has A Psychiatrist And A Therapist At [facility] Information not available 07/29/2023 Providers Yes Information [...] PF, zeina-sucrose, 30 mcg/0.3 mL 4 completed ALLY BRADFORD MD [address], [facility] [address], [facility] 03/19/2024 07:16:36 Influenza, split virus, trivalent, PF 4 completed ALLY BRADFORD MD [address], [facility] [address], [facility] 03/19/2024 07:16:36 Tdap 8 completed Not Available [facility] 05/08/2023 05:31:25 Influenza, split virus, quadrivalent, PF 3 completed Not Available [facility] 05/08/2023 05:31:25 SARS-COV-2 (COVID-19) vaccine, UNSPECIFIED 1 completed Not Available [facility] 05/08/2023 05:31:25 SARS-COV-2 (COVID-19) vaccine, UNSPECIFIED 1 completed Not Available [facility] 05/08/2023 05:31:26 COVID-19, mRNA, LNP-S, PF, zeina-sucrose, 30 mcg/0.3 mL 3 completed Not Available [facility] 05/08/2023 05:31:26 Past Encounters Encounter ID Performer Location Encounter Start Date Encounter Closed Date Diagnosis/Indication Diagnosis SNOMED-CT Code Diagnosis ICD10 Code Diagnosis Note [id number] ALLY BRADFORD MD [address] [address] 03/18/2024 10:02:17 03/18/2024 11:35:08 Active or passive immunization 001114317 Z23 Strain of trapezius muscle 687481029 S46.811A - Refer to physical therapy for upper body exercises. - Increase methocarba mol during the day for pain relief. Vocal cord dysfunction 930635553 R49.9 - Recommend evaluation by a specialist for further assessment and management . Urge incon tinence of urine 56730982 N39.41 Pessary has helped some symptoms but still with difficulty identifyin g bladder sensations and with ongoing urge incontinen ce. May benefit from urodynamic s. Agreeable to pelvic floor PT again after urology evaluation . Autism spe ctrum disorder 33661976 F84.8 Questionin g if she has this diagnosis. [facility] would be another option for referral. Referral placed again at her request. Vitamin D deficiency 347 73320 E55.9 Recommend at least 2000 IU of vitamin D daily. Temporoman dibular joint disorder 57447686 M26.609 - Increase methocarba mol as needed for pain relief.- Recommend heat, gentle massage, and avoiding stress on the jaw.- Encourage soft foods and modified oral hygiene routine until symptoms improve. Migraine 32854542 G43.90 9 - Continue current management with acetaminop hen, dark room, cold water, and ice pack.- Consider trying other medication s like Imitrex if migraines worsen. Irritable bowel syndrome 60390194 K58.9 - Encourage patient to maintain a [...] Member ID Zabala Member ID Guarantor Name 03/18/2024 1 [facility] (MEDICAID) Izabel Madrigal [id number] Izabel Madrigal Notes Date Note Type Note Provider Name and Address Organization Details Recorded Time 03/18/2024 text/html Hypermobile Korey-Danlos Syndrome (EDS) - [...] evaluation for vocal cord dysfunction. Migraines - Izabel's migraines have decreased in frequency from five [...] the organization she was referred to. ALLY BRDAFORD MD [address], [place], [address], [facility]. 03/19/2024 07:29:46 OBGyn Episode No OBEpisode recorded.
--- OUTSIDE RECORDS SUMMARY | 2024-05-11 18:39 | XMS_ITS | Encounter Summary ---
Author Organization [facility] [place] [address] Care Team Providers Care Delivery Table Operator Name Role Phone Ally Bradford MD Primary Care Provider [phone] Reason for Referral * Consultation (Routine) - Closed Specialty Diagnoses / Procedures Referred By Bobby roche Referred To Contact Urology Diagnoses Urge incontinence COMPLICATED HISTORYOF HEDS, PROLAPSE, HAS PESSARY, INTERSTITIAL CYSTITIS. PESSARY HAS HELPED BUT STILL HAVING SIGNIFICANT INCONTINENCE. DOESN'T FEEL URG TO VOIC UNTIL BLADDER IS FULL. MAY NEED URODYNAMICS. Ally Bradford MD [address] [place] [address] [facility] Fire Prevention Research Engineer [address] [place] [address] Referral ID Status Reason Start Date Expiration Date V isits Requested Visits Authorized [id number] Closed Consult, Test & Treat PCP Updated and/or Approved 03/18/2024 03/18/2025 6 6 Encounter Details Date Type Department Care Team (Late st Contact Info) Description 04/21/2024 Transcribe Orders eDH Incoming Referrals [phone] Ally Bradford MD [address] [place] [address] Urge incontinence Social History Tobacco Use Types Packs/Day Years [...] Scheduled View Only Ob[place]etric[place] [address] Nurse, Grecia MCLAUGHLIN RN 09/06/2024 2:40 PM EDT Office Visit Obstetrics [place] [address] Kymberly Zavala, NILAM [facility] [place] [address] Scheduled Referrals Name Type Priority Associated Diagnoses Orde r Schedule Referral to Urogynecology Outpatient Referral Routine Urge incontinence Ordered: 04/21/2024 documented as of this encounter Visit Diagnoses Diagnosis Urge incontinence documented in this encounter Care Teams Delivery Table Operator Relationship Specialty Start Date End Date Ally Bradford MD [address] [place] [address] PCP - General Family Medicine 09/01/23 documented as of this encounter
--- OUTSIDE RECORDS SUMMARY | 2024-05-11 18:39 | XMS_ITS | Encounter Summary ---
Author [place] [address] Care Team Providers Care Oil Well Cable Tool Driller Name Role Phone Ally Bradford MD Primary Care Provider [phone] Encounter Details Date Type Department Care Team (Latest Contact Info) Description 03/07/2024 Travel Social History Tobacco Use Types Packs/Day [...] Scheduled View Only Obstetrics [place] [address] Nurse, Grecia MCLAUGHLIN RN 09/06/2024 2:40 PM EDT Office Visit Obstetrics [place] [address] Kymberly Zavala, CUSHION SPRING ASSEMBLER [facility] [place] [address] documented as of this encounter Visit Diagnoses Not on filedocumented in this encounter Care Teams Oil Well Cable Tool Driller Relationship Specialty Start Date End Date Ally Bradford MD [address] [place] [address] PCP - General Family Medicine 09/01/23 documented as of this encounter
--- OUTSIDE RECORDS SUMMARY | 2024-05-11 18:39 | XMS_ITS | Encounter Summary ---
[place] [address] Care Team Providers Care Habilitation Assistant Name Role Phone Ally Bradford MD Primary Care Provider [phone] Encounter Details Date Type Department Care Team [...] Scheduled View Only Obstetrics [place] [address] Nurse, Grecia MCLAUGHLIN RN 09/06/2024 2:40 PM EDT Office Visit Obstetrics [place] [address] Kymberly Zavala, GEODETIC ENGINEER [facility] [place] [address] documented as of this encounter Visit Diagnoses Not on filedocumented in this encounter Care Teams Habilitation Assistant Relationship Specialty Start Date End Date Ally Bradford MD [address] [place] [address] PCP - General Family Medicine 09/01/23 documented as of this encounter
--- OUTSIDE RECORDS SUMMARY | 2024-05-11 18:39 | XMS_ITS | Encounter Summary ---
Author Organization [facility] [place] [address] Care Team Providers Care Project Management Analyst Name Role Phone Unavailable Primary Care Provider Unavailabl e Encounter Details Date Type Department Care Team (Late Contact Info) Description 06/16/2023 Telephone Obstetrics [place] [address] Janee Hoang Social History Tobacco Use Types Packs/Day Years Used Date Smoking Tobacco: Never Assessed Sex and Gender Information Value Date Recorded Sex Assigned at Not on file Gender Identity Not on file Sexual Orientation Not on file documented as of this encounter Miscellaneous Notes * Telephone Encounter - Janee Hoang - 06/16/2023 2:37 PM EST Attempted to schedule appointment from cardroom supervisor referral. Unable to leave voicemail due to message saying this person isn't accepting calls. documented in this encounter Plan of Treatment Upcoming Encounters Date Type Department Care Team (Late Contact Info) Description 09/06/2024 2:15 PM EDT Scheduled View Only Obstetrics [place] [address] Nurse, Grecia MCLAUGHLIN, RN 09/06/2024 2:40 PM EDT Office Visit Obstetrics [place] [address] Kymberly Zavala, RECEIVABLE EXECUTIVE [facility] [place] [address] documented as of this encounter Visit Diagnoses Not on filedocumented in this encounter
--- OUTSIDE RECORDS SUMMARY | 2024-05-11 18:39 | XMS_ITS | Encounter Summary ---
Author [place] [address] Care Team Providers Care Chorus Dancer Name Role Phone Ally Bradford MD Primary Care Provider [phone] Encounter Details Date Type Department Care Team [...] Scheduled View Only Obstetrics [place] [address] Nurse, Grecia MCLAUGHLIN RN 09/06/2024 2:40 PM EDT Office Visit Obstetrics [place] [address] Kymberly Zavala, RIFFLER TENDER [facility] [place] [address] documented as of this encounter Visit Diagnoses Not on filedocumented in this encounter Care Teams Chorus Dancer Relationship Specialty Start Date End Date Ally Bradford MD [address] [place] [address] PCP - General Family Medicine 09/01/23 documented as of this encounter
--- OUTSIDE RECORDS SUMMARY | 2024-05-11 18:39 | XMS_ITS | Encounter Summary ---
Author Organization [facility] [place] [address] Care Team Providers Care Bag Filler Name Role Phone Unavailable Primary Care Provider Unavailabl e Encounter Details Date Type Department Care Team (Late st Contact Info) Description 06/12/2023 Telephone Obstetrics [place] [address] Janee Hoang Social History Tobacco Use Types [...] Scheduled View Only Obst[place]s [place] [address] Nurse, Grecia MCLAUGHLIN, RN 09/06/2024 2:40 PM EDT Office Visit Obstetrics [place] [address] Kymberly Zavala, BONDING EQUIPMENT OPERATOR [facility] [place] [address] documented as of this encounter Visit Diagnoses Not on filedocumented in this encounter
--- OUTSIDE RECORDS SUMMARY | 2024-05-11 18:39 | XMS_ITS | Clinical Summary ---
Author Organization [facility] Address [facility] [place] [address] Care Team Providers Care Personal Care Assistant Name Role Phone Ally Bradford MD Primary Care Provider [phone] Allergies No known active allergies Medications Medication [...] mg by mouth daily. Active Active Problems Problem Noted Date Diagnosed Date Nexplanon in place 03/07/2024 Cystocele, unspecified 03/07/2024 Korey-Danlos syndrome Encounters Date Type Department Care Team Description 04/21/2024 Transcribe Orders eD Incoming Referrals [phone] Ally Bradford MD Urge incontinence 03/07/2024 4:00 PM EST Office Visit Obstetrics [place] [address] Jeane Quiñonez MD Pelvic floor dysfunction; Nexplanon in place; Cystocele, unspecified 03/07/2024 Travel from Last 3 Months Social History [...] Pressure 100/68 03/07/2024 3:53 PM EST Pulse 78 12/01/2023 3:03 PM EDT Temperature 36.6 ??C (97.8 ??F) 12/01/2023 3:03 PM ED T Respiratory Rate - - Oxygen Saturation 98% 12/01/2023 3:03 PM EDT Inhaled Oxygen Concentration - - Weight 79.7 kg (175 lb 11.2 oz) 03/07/2024 3:55 PM EST Height 172.7 cm (5' 8) 09/01/2023 8:03 AM EDT Body Mass Index 26.72 09/01/2023 8:03 AM EDT Plan of Treatment Upcoming Encounters Date Type Department Care Team (Late st Contact Info) Description 09/06/2024 2:15 PM EDT Scheduled View Only Obstetrics [place] [address] Nurse, Grecia MCLAUGHLIN RN 09/06/2024 2:40 PM EDT Office Visit Obstetrics [place] [phone] Kymberly Zavala, CAN REPAIRER [facility] [place] [address] Health Maintenance Due Date Last Done Comments Chlamydia Screening 07/20/2014 HPV vaccine (1 - 3-dose series) 07/20/2014 HIV screen 07/20/2017 Hepatitis C Screening 07/20/2017 Hepatitis B vaccine (0-59 yrs) (1) 07/20/2018 Tetanus/Diphtheria/Pertussis Vaccines (1 - Tdap) 07/20 PAP Smear 07/20/2020 Covid-19 Vaccine (2 - season) 12/27/202305/2022 Influenza (Flu) vaccine (1 o f 1 - Influenza standard series) 12/27/2023 Care Teams Personal Care Assistant Relationship Specialty Start Date End Date Ally Bradford MD [address] [place], [place] [id number] PCP - General Family Medicine 09/01/23
--- OUTSIDE RECORDS SUMMARY | 2024-05-11 18:39 | XMS_ITS | Encounter Summary ---
[place] [address] Care Team Providers Care Workplace Relations Adviser Name Role Phone Ally Bradford MD Primary Care Provider [phone] Reason for Referral * Physical Therapy (Routine) - Closed Specialty Diagnoses / Procedures Referred By Contac t Referred To Contact Physical Therapy Diagnoses OAB (overactive bladder) IC (interstitial cystitis) Pelvic floor dysfunction Chronic pelvic pain in female Chronic constipation Levator spasm Farhana Graham APRN [address] [place] [address] [place] [address] Physical Therapy, Rowdy Brown PERI MARTIN,[facility] [address] [place] [address] Referral ID Status Reason Start Date Expiration Date V isits Requested Visits Authorized [id number] Closed Evaluate and Treat 09/01/2023 02/28/2024 12 12 Reason for Visit * Reason Comments Establish Care * Consultation (Routine) - Closed Specialty Diagnoses / Procedures Referred By Contac t Referred To Contact Urology Diagnoses Pelvic and perineal pain Real Estate Lawyer Ally Bradford MD [address] [place] [address] [facility] [address] [address] Referral ID Status Reason Start Date Expiration Date V isits Requested Visits Authorized [id number] Closed Consult, Test & Treat PCP Updated and/or Approved 04/11/2023 04/10/2024 6 6 Encounter Details Date Type Department Care Team (Late st Contact Info) Description 09/01/2023 8:00 AM EDT Office Visit Obstetrics [place] [address] Farhana Graham, CHOREOGRAPHY DIRECTOR [address] [facility] [place] [address] OAB (overactive bladder); IC (interstitial cystitis); Pelvic [...] this encounter Progress Notes * Farhana Graham, CHOREOGRAPHY DIRECTOR - 09/01/2023 8:00 AM EDT Female Pelvic Medicine and Reconstructive Surgery @ [facility] Patient Name: Izabel Madrigal Patient Primary Care Provider: lAly Bradford MD Referring Provider: Ally Bradford MD [...] and established care with a urogyn around [facility], she was dx with interstitial cystitis/bladder pain [...] last menstrual period 08/28/2023, SpO2 100%. [employer] Plan Bladder Scanner/[place] Bladder Scanner was used to obtain a postvoid residual to further delineate urinary symptoms. After the patient voided, 46 mL was measured as a postvoid residual. This is within normal limits for patient's history and age. A intelligence operations is present for the examination. General: normal [...] test (empty supine): negative External Genitalia: Vulva, [place]'s and Bartholin glands normal, urethra without tenderness [...] Scheduled View Only Obstetrics [place] [address] Nurse, Grecia MCLAUGHLIN RN 09/06/2024 2:40 PM EDT Office Visit Obstetrics [place] [address] Kymberly Zavala APRN [facility] [address] Scheduled Referrals Name Type Priority [...] multiple bacterial species suggesting mucosal contamination. (A) [facility] Clean Catch Urine 09/01/2023 7:02 PM EDT 09/01/2023 7:02 PM EDT Narrative Resulting Agency Comment Spec In Lab Farhana Graham APRN MICROBIOLOGY - GEN ERAL ORDERABLES [facility] [place] [address] * Bladder Scanner (09/01/2023) Bladder Scan (mL) 46 mL Farhana Graham APRN URO PROC W/O RFL O RDERABLES * POCT urine dipstick (09/01/2023) POC Sp Panther 1.02 1.002 - 1.030 POC pH, UA [...] movements documented in this encounter Care Teams Workplace Relations Adviser Relationship Specialty Start Date End Date Ally Bradford MD [address] [place] [address] PCP - General Family Medicine 09/01/23 documented as of this encounter
[2024-05-11 19:29] LABS: Abs Immature Grans 0.02 10^3/uL (0.0-0.06); Absolute Basophil Count 0.05 10^3/uL (0.0-0.2); Absolute Lymphocyte Count 1.76 10^3/uL (1.2-3.4); Absolute Monocyte Count 0.48 10^3/uL (0.1-0.8); Absolute Neutrophil Count 7.18 10^3/uL (1.2-6.7); Basophils % 0.5 %; HCT 43.1 % (36.0-46.0); HGB 14.7 g/dL (11.2-15.7); Immature Grans % 0.2 %; Lymphocytes % 18.5 %; MCH 30.8 pg (27.0-33.0); MCHC 34.1 % (32.0-36.0); MCV 90 fL (80-95); Monocytes % 5.1 %; Neutrophils % 75.7 %; Platelet Count 321 10^3/uL (130-400); RBC 4.78 10^6/uL (3.93-5.22); RDW 12.7 % (11.7-14.6); RDW-SD 41.9 fL; WBC 9.49 10^3/uL (4.4-10.8)
[2024-05-11 19:33] LABS: *AMPHETAMINES SCREEN URINE Negative (Negative); *BARBITURATES SCREEN URINE Negative (Negative); *BENZODIAZEPINES SCREEN URINE Negative (Negative); Cannabinoids THC Positive (Negative); Cocaine Screen,Urine Negative (Negative); METHADONE URINE SCREEN Negative (Negative); OPIATES URINE SCREEN Negative (Negative)
[2024-05-11 19:37] LABS: Tricyclic Antidepressants Negative (Negative)
[2024-05-11 19:53] LABS: ALT 41 U/L (14-59); AST 21 U/L (15-37); Albumin 4.4 g/dL (3.4-5.0); Alkaline Phosphatase 96 U/L (46-116); Anion Gap 7.7 mmol/L (3-11); BUN 8 mg/dL (7-18); Bilirubin, Total 0.67 mg/dL (0.2-1.0); CO2 30.3 mmol/L (21.0-32.0); Chloride 102 mmol/L (98-107); Estimated GFR 80.68 (mL/min/1.73m2); Glucose 109 mg/dL (74-106); Potassium 3.3 mmol/L (3.5-5.1); Sodium 140 mmol/L (136-145); TSH (W/Ref FT4) 4.48 uIU/mL (0.36-3.74); Total Protein 8.4 g/dL (6.4-8.2)
[2024-05-11 19:55] LABS: ETHANOL BLOOD < 3.0 mg/dL (<10)
[2024-05-11 20:04] LABS: Salicylate < 2.8 mg/dL (<2.8)
[2024-05-11 20:05] LABS: Acetaminophen < 2 ug/mL (10-30)
--- NOTE | 2024-05-11 20:31 | PDOC.MHCN ---
Date of service: 05/11/24 Time of Service: 20:30 PHQ-9 Over the last 2 weeks, how often have you been bothered by any of the following problems? 1. Little interest or pleasure in doing things: nearly every day 2. Feeling down, depressed, or hopeless: nearly every day 3. Trouble falling or staying asleep, or sleeping too much: nearly every day 4. Feeling tired or having little energy: nearly every day 5. Poor appetite or overeating: nearly every day 6. Feeling bad about yourself - or that you are a failure or have let yourself and your family down: nearly every day 7. Trouble concentrating on things, such as reading the newspaper or watching television: nearly every day 8. Moving or speaking so slowly that other people could have noticed? - Or the opposite - being so fidgety or restless that you have been moving around a lot more than usual: several days 9. Thoughts that you would be better off or of hurting yourself in some way: nearly every day Total score: 25 If you checked off any problems, how difficult have these problems made it for you to do your work, take care of things at home, or get along with other people?: extremely difficult PHQ-9 Results: Positive Source: Developed by Drs. Mic Pedro, Yoli Santana, Levar James and colleagues, with an educational emre from [employer] Suicide Severity Rate CSSRS Have you wished you were or wished you could go to sleep and not wake up?: Yes Have you actually had any thoughts of killing yourself?: Yes CSSRS2 Have you been thinking about how you might do this?: Yes Have you had these thoughts and had some intention of acting on them?: Yes Have you started to work out or worked out the details of how to kill yourself? Do you intend to carry out this plan?: No CSSRS3 Have you ever done anything, started to do anything or prepared to do anything to end your life?: Yes CSSRS4 Was this within the past three months?: No Screening Score Total Score: 6 Screening: Positive Mental Health Emergency Note Release [facility] release signed:: Yes Reason for Visit Izabel presents to the ED due to suicidal ideations In the last 2 weeks has the pt presented for ES prior to today?: Unknown Client Information Client is: Adult Outpatient Well Housed: Yes Non Suicidal Self Injury Current: No History: No Safety Risk/Harm to Self or Others Current Ideation to Harm Self or Others: Yes to self. (Client is actively endorsing SI for the last few weeks and has a plan to take all her medications. Client rates herself a 9/10 on intent) Intent: yes, has intent. Plan: yes,has a plan. History of suicide attempt: yes,history of suicide attempt reported. Details of previous suicide attempt: Client attempted to end her life in 2013 via overdose, did not seek treatment after this attempt reports she 'slept it off' Risk: Does risk to harm exist?: No Risk: N/A Duty to warn indicated: No Asssessment/Mental Status Appearance: Unremarkable Attitude: Cooperative Behavior: Unremarkable Speech: Normal Affect: Cogruent with mood Mood: Stressed, Depressed and Anxious Thought process: Unremarkable Hallucinations: No evidence Delusions: No evidence Attention: Unremarkable Perception: Not impaired Orientation: Fully orientated Memory: Intact Insight: Good Judgement: Good Neurovegetative Symptoms Sleep: Increase Appetitie: Disordered Interests: Decrease Energy: Decrease Libido: Not applicable Substance Use: Do you use nicotine?: No Have you used substances in the last 7 days?: yes, Client reports she started smoking weed again after not smoking for awhile, client stopped again a few days ago Additional Issues: Assaultive/Threatening Behavior: No Medical Concerns: No Client engaged in active self harm w/weapon: No Threatening to run away: No Child reported abuse/neglect: No Voluntarily presenting for services: Yes Domestic violence is a concern: No Extreme Psychosis or extreme behavior is present: No Impression 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 Izabel reports she came to the ED due to suicidal ideations which have been happening for the last several weeks. Izabel reports she has a plan to take all of her medication and reports on a self reported scale of 0-10 ( 0 being she could go home and be safe, 10 being she would end her life) she is a 9/10. Izabel reports that she has felt this way before and has attempted to end her life once prior in 2013 via overdose. Izabel was not hospitalized then but has been to inpatient treatment before for her mental health, she has also been to treatment for substance use. Izabel has a history of excessive alcohol consumption as well as marijuana. Izabel reports she has recently relapsed on both. Izabel was sober on alcohol for about 1 year before she relapsed and sober from weed for about four months. Izabel reports going to detox in 2021. Izabel reports family history of substance abuse as well. Izabel denies thoughts to harm others. Izabel is a client at [facility] and has several cancelled/no showed appointments including her therapy appointment yesterday. Izabel reports yesterday she slept through her appointment but most of the time it is due to transportation. Izabel is currenlty wanting to seek voluntary inpatient treatment. Izabel presents as a client in need of treatment evident in her suicidality, relapse, and change in moods. Plan/Disposition Recommended Disposition: Hospitalization (Referrals will be sent on 05/11) facilities contacted. Plan: Izabel will remain at [facility] until voluntary inpatient treatment can be secured Person reported agreement to plan: Yes Reports/communication Outcome discussed with: ED/Personnel
[2024-05-11] MEDS: Ondansetron O.D.T. 4 MG TABEF (21:34)
[2024-05-11] MEDS: Methocarbamol 500 MG TAB PO (21:36)
[2024-05-11] MEDS: hydrOXYzine HCL 50 MG TAB PO (21:36)
[2024-05-11] MEDS: Gabapentin 600 MG TAB PO (21:36)
[2024-05-11] MEDS: Mirtazapine 15 MG TAB 30 MG PO (21:36)
--- NOTE | 2024-05-11 22:54 | ED.GENADUL_ITS ---
Discharge Plan Discharge Details Chief Complaint: PsychEval Primary Care Provider: Ally Bradford ED Provider: Rosa Cha Home Meds and New Rx's Prescriptions: No Action omeprazole 40 mg capsule,delayed release(DR/EC) 40 mg PO DAILY Qty: 30 1RF hydroxyzine HCl 25 mg tablet 50 mg PO QHS Qty: 2 0RF docusate sodium 100 mg capsule 100 mg PO BID gabapentin 300 mg capsule 600 mg PO TID PRN multivitamin Tablet 1 tab PO DAILY Nexplanon 68 mg implant 1 implant subdermal ONCE Rx Instructions: as a single dose ondansetron 4 mg tablet,disintegrating 4 mg PO Q8H PRN guanfacine 1 mg tablet 1 mg PO BID meloxicam 15 mg tablet 15 mg PO DAILY naltrexone 50 mg tablet 50 mg PO DAILY methocarbamol 500 mg tablet 500 mg PO QHS duloxetine 40 mg capsule,delayed release(DR/EC) 40 mg PO DAILY mirtazapine 15 mg tablet 30 mg PO HS HPI General Date/Time Provider Initiated Documentation: 05/11/24 18:41 . HPI Narrative: This 23-year-old female presents with report of suicidal ideation. She states that she was sober for a few months from alcohol and marijuana and started drinking again a few weeks ago, she has been sober actually for 3 weeks now per patient. But she has recently been having some thoughts of wanting to overdose on her medications. She has a prior attempt in 2013 when she took multiple medications and required admission for overdose. She denies any history of alcohol withdrawal in the past. She denies any concerns for . She denies any attempts to harm self today. Her last drink of alcohol was approximately 2 to 3 weeks ago. 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 She has had some intermittent nausea and vomiting throughout the course of the past several days per patient. Denies any additional illicit drug use. Denies any auditory or visual hallucinations Related Data Home Medications ?Medication ?Instructions ?Recorded ?Confirmed guanfacine 1 mg tablet 1 mg PO BID 06/03/23 05/11/24 meloxicam 15 mg tablet 15 mg PO DAILY 06/03/23 05/11/24 naltrexone 50 mg tablet 50 mg PO DAILY 06/03/23 05/11/24 hydroxyzine HCl 25 mg tablet 50 mg (2 x 25 mg) PO QHS #2 tabs 09/21/23 05/11/24 methocarbamol 500 mg tablet 500 mg PO QHS 10/02/23 05/11/24 duloxetine 40 mg capsule,delayed 40 mg PO DAILY 10/03/23 05/11/24 release docusate sodium 100 mg capsule 100 mg PO BID 03/21/24 05/11/24 etonogestrel 68 mg subdermal 1 implant subdermal ONCE 03/21/24 05/11/24 implant (Nexplanon) gabapentin 300 mg capsule 600 mg PO TID PRN 03/21/24 05/11/24 multivitamin 1 tab PO DAILY 03/21/24 05/11/24 ondansetron 4 mg disintegrating 4 mg PO Q8H PRN 03/21/24 05/11/24 tablet omeprazole 40 mg capsule,delayed 40 mg PO DAILY #30 caps 04/04/24 05/11/24 release mirtazapine 15 mg tablet 30 mg PO HS 05/11/24 05/11/24 Previous Rx's ?Medication ?Instructions ?Recorded hydroxyzine HCl 25 mg tablet 50 mg (2 x 25 mg) PO QHS #2 tabs 09/21/23 omeprazole 40 mg capsule,delayed 40 mg PO DAILY #30 caps 04/04/24 release Allergies Allergy/AdvReac Type Severity Reaction Status Date / Time droperidol Allergy Severe akathisia Verified 05/11/24 18:39 General Stated Complaint: PsychEval CIERA: 2 Exam Narrative Exam Narrative: Alert and oriented 23-year-old female in no acute distress, answering questions appropriately, flat affect, no respiratory distress, cardiac rate regular, no abdominal tenderness, alert and oriented x 4, positive suicidal ideation with plan, no homicidal ideation, no auditory or visual hallucinations, noticeable signs of trauma answering questions appropriately Course Vital Signs Vital signs: Vital Signs Temperature 36.4 C L 05/11/24 18:29 Pulse 107 H 05/11/24 18:29 Respiratory Rate 22 05/11/24 18:29 Blood Pressure 147/90 H 05/11/24 18:29 Pulse Oximetry 98 05/11/24 18:29 Temperature 36.4 C L 05/11/24 18:29 Temperature Source Oral 05/11/24 18:29 Pulse 107 H 05/11/24 18:29 Respiratory Rate 22 05/11/24 18:29 Blood Pressure 147/90 H 05/11/24 18:29 Blood Pressure Position Sitting 05/11/24 18:29 Pulse Oximetry 98 05/11/24 18:29 Oxygen Delivery Method Room Air 05/11/24 18:29 Oxygen Flow Rate 0 05/11/24 18:29 Pain Level 0 05/11/24 18:29 Lab/Test Results Lab/Test Results: Laboratory Tests Range/Units 05/11/24 05/11/24 18:29 19:23 WBC (4.4-10.8) 10^3/uL 9.49 RBC (3.93-5.22) 10^6/uL 4.78 Hgb (11.2-15.7) g/dL 14.7 Hct (36.0-46.0) % 43.1 MCV (80-95) fL 90 MCH (27.0-33.0) pg 30.8 MCHC (32.0-36.0) % 34.1 RDW (11.7-14.6) % 12.7 Plt Count (130-400) 10^3/uL 321 MPV (8.0-11.0) fL 10.0 Immature Gran % % 0.2 Neutrophils % % 75.7 Lymphocytes % % 18.5 Monocytes % % 5.1 Eosinophils % % 0.0 Basophils % % 0.5 Nucleated RBC % (0.0-0.3) % 0.0 Absolute Neutrophils (1.2-6.7) 10^3/uL 7.18 H Absolute Lymphocytes (1.2-3.4) 10^3/uL 1.76 Absolute Monocytes (0.1-0.8) 10^3/uL 0.48 Absolute Eosinophils (0.0-0.7) 10^3/uL 0.00 Absolute Basophils (0.0-0.2) 10^3/uL 0.05 Sodium (136-145) mmol/L 140 Potassium (3.5-5.1) mmol/L 3.3 L Chloride (98-107) mmol/L 102 Carbon Dioxide (21.0-32.0) mmol/L 30.3 Anion Gap (3-11) mmol/L 7.7 BUN (7-18) mg/dL 8 Creatinine (0.55-1.02) mg/dL 1.0 Est GFR (CKD-EPI 2020) (mL/min/1.73m2) 80.68 Glucose (74-106) mg/dL 109 H Calcium (8.5-10.1) mg/dL 10.0 Total Bilirubin (0.2-1.0) mg/dL 0.67 AST (15-37) U/L 21 ALT (14-59) U/L 41 Alkaline Phosphatase (46-116) U/L 96 Total Protein (6.4-8.2) g/dL 8.4 H Albumin (3.4-5.0) g/dL 4.4 TSH (0.36-3.74) uIU/mL 4.48 H Free T4 (0.76-1.46) ng/dL 1.20 Salicylates (<2.8) mg/dL < 2.8 Urine Opiates Screen (Negative) Negative Urine Methadone Screen (Negative) Negative Acetaminophen (10-30) ug/mL < 2 Ur Barbiturates Screen (Negative) Negative Ur Tricyclics Screen (Negative) Negative Ur Amphetamines Screen (Negative) Negative U Benzodiazepines Scrn (Negative) Negative Urine Cocaine Screen (Negative) Negative Ur THC Screen (Negative) Positive A Ethyl Alcohol (<10) mg/dL < 3.0 POC- Test(urine) Negative Medical Decision Making 23-year-old female with suicidal ideation with plan, diagnostic labs reassuring. Positive for THC only for U tox. Patient evaluated by [facility] human services and patient will be placed on a voluntary status for acute suicidality with plan. Patient did have an episode of vomiting after receiving her night medications, she received a single dose of Zofran and is feeling symptomatically improved. Electrolytes are within normal limits no abdominal tenderness. Will order fluids secondary to vomiting however patient states this is typical p resentation for THC use in the past. 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) OCD (obsessive compulsive disorder) (Acute) Major depression (Chronic) PTSD (post-traumatic stress disorder) (Acute) Medical History (Updated 04/04/24 @ 10:11 by Kristal Juárez NP) Alcoholism Autism spectrum disorder Dysmenorrhea Mixed anxiety depressive disorder Chronic interstitial cystitis IBS (irritable bowel syndrome) Pain in lower limb Chronic pelvic pain in female Hypermobile Korey-Danlos syndrome Overactive bladder Strain of trapezius muscle Urge incontinence of urine Fatigue Congenital pes planus Cervical paraspinal muscle spasm Irregular intermenstrual bleeding Pain in pelvis Irritable bowel syndrome with diarrhea Chronic constipation Slow transit constipation TMJ (temporomandibular joint disorder) Vocal cord dysfunction Orthostatic hypotension Hemorrhoids Migraine Chronic pain Alcohol dependence Recurrent major depression Vitamin D deficiency Surgical History (Updated 03/21/24 @ 14:53 by Audelia Dexter RN) History of wisdom tooth extraction Social History Smoking/Tobacco Use Status: Never Smoking risk assessment performed?: Yes Alcohol Intake: former Drug use: Occasionally Substance use type: marijuana Housing: house Do you feel safe at home: Yes Do you feel safe in your relationship?: Yes Additional Social history: unable to assess alone Female Reproductive History Menstrual control method: implanted
[2024-05-12 00:05] LABS: COVID-19 PCR Negative (Negative); Influenza A PCR Negative (Negative); Influenza B PCR Negative (Negative); RSV PCR Negative (Negative)
[2024-05-12 00:06] LABS: Source Nasopharynx
--- NOTE | 2024-05-12 01:40 | ED.PROG_ITS ---
Date of service: 05/12/24 Time of Service: 01:41 Medical Decision Making Patient stable throughout the night. No interventions needed. Pending voluntary placement Quality:SDOH Health Related Social Needs: Health related social needs feeling lonely/isolated (Z 60.8) Discharge Plan Discharge Details Chief Complaint: PsychEval Primary Care Provider: Ally Bradford ED Provider: Cooper San Home Meds and New Rx's Prescriptions: No Action omeprazole 40 mg capsule,delayed release(DR/EC) 40 mg PO DAILY Qty: 30 1RF hydroxyzine HCl 25 mg tablet 50 mg PO QHS Qty: 2 0RF docusate sodium 100 mg capsule 100 mg PO BID gabapentin 300 mg capsule 600 mg PO TID PRN multivitamin Tablet 1 tab PO DAILY Nexplanon 68 mg implant 1 implant subdermal ONCE Rx Instructions: as a single dose ondansetron 4 mg tablet,disintegrating 4 mg PO Q8H PRN guanfacine 1 mg tablet 1 mg PO BID meloxicam 15 mg tablet 15 mg PO DAILY naltrexone 50 mg tablet 50 mg PO DAILY methocarbamol 500 mg tablet 500 mg PO QHS duloxetine 40 mg capsule,delayed release(DR/EC) 40 mg PO DAILY mirtazapine 15 mg tablet 30 mg PO HS
[2024-05-12] MEDS: Ondansetron O.D.T. 4 MG TABEF PO (07:41)
--- NOTE | 2024-05-12 09:39 | ED.PROG_ITS ---
Date of service: 05/12/24 Time of Service: 07:00 Medical Decision Making Patient seen yesterday for suicidal ideation stating that she would overdose who has been medically clear for the previous provider and has been accepted to [facility] for psych inpatient treatment Medical Records Medical records reviewed: Yes I reviewed the patient's medical records. Lab Data Lab results reviewed: Yes I reviewed the patient's lab results. Quality:SDOH Health Related Social Needs: Health related social needs feeling lonely/isolated (Z 60.8) Exam Narrative Exam Narrative: Exam; vitals signs as reported above normal Constitutional; In no acute distress, afebrile General: cooperative, healthy appearing, comfortable and no acute distress HEENT: Head: normal to inspection, no palpable skull fracture and normocephalic atraumatic Eyes: : appearance normal, both eyes and all related structures EOM intact bilaterally Pupils: PERRL : conjunctiva normal Direct ophthalmoscopy: normal light reflex, normal conjunctiva, normal visual acuity Ears: Normal TM, normal external canal Nose: normal no rhinorreha Neck no JVD, supple non tender Neck: normal visual inspection, full ROM and no lymphadenopathy Chest: normal inspection of the chest Respiratory : normal respiratory effort and able to speak in complete sentences no wheezing no rales Cardio Rate: regular rate, rhythm: regular rhythm normal heart sounds S1 and S2 no murmurs, gallops, or rubs GI : normal to inspection, normal bowel sounds, soft, non tender, non distended, no organomegaly Back/Spine/ no CVA tenderness Thoracic/Lumbar Spine: no tenderness or deformities Skin no rashes or lesions Neuro: patient alert oriented x 4 and no meningeal signs, Cranial Nerves: CN's II-XI intact bilaterally, Cognition: normal cognition, Speech: speech normal, Gait: normal gait, Depp tendon reflexes normal 2+ muscle strength 5/5 bilaterally Extremities, no edema, full range of motion, normal strength Narrative Patient with depression and suicidal ideation who has been accepted at [facility] for inpatient treatment Discharge Plan Disposition Patient Disposition: Pediatric Hospital Condition: Stable Discharge Details Clinical Impression: Major depression Primary Care Provider: Ally Bradford ED Provider: Rolando Ho Home Meds and New Rx's Prescriptions: Continued omeprazole 40 mg capsule,delayed release(DR/EC) 40 mg PO DAILY Qty: 30 1RF hydroxyzine HCl 25 mg tablet 50 mg PO QHS Qty: 2 0RF docusate sodium 100 mg capsule 100 mg PO BID gabapentin 300 mg capsule 600 mg PO TID PRN multivitamin Tablet 1 tab PO DAILY Nexplanon 68 mg implant 1 implant subdermal ONCE Rx Instructions: as a single dose ondansetron 4 mg tablet,disintegrating 4 mg PO Q8H PRN guanfacine 1 mg tablet 1 mg PO BID meloxicam 15 mg tablet 15 mg PO DAILY naltrexone 50 mg tablet 50 mg PO DAILY methocarbamol 500 mg tablet 500 mg PO QHS duloxetine 40 mg capsule,delayed release(DR/EC) 40 mg PO DAILY mirtazapine 15 mg tablet 30 mg PO HS Discharge Instructions Instructions: Depression, Adult ED Discharge Data Discharge Physician: Rolando Ho
[2024-05-12] MEDS: DULoxetine 20 MG CAP 40 MG PO (10:02)
[2024-05-12] MEDS: Gabapentin 300 MG CAP 600 MG PO (10:02)
[2024-05-12] MEDS: Docusate Sodium 100 MG CAP PO (10:03)
== END 2024-05-12 10:50 | disposition designated cancer center or children's hospital (05) ==
PROVIDERS: Physician Assistant; Emergency Provider Emergency Medicine Emergency Medical Services; PCP Family Medicine
DX: F32.9 Major depressive disorder, single episode, unspecified (principal); R45.851 Suicidal ideations; Z60.8 Other problems related to social environment
CPT/HCPCS: 00123; 80053; 80307; 81025; 87637; 96127; 99285; 80320; 80329; 84439; 84443; 85025; J3490

== ENCOUNTER 2024-08-02 17:52 | Outpatient (REF) | payer MEDICAID, SELFPAY ==
[2024-08-02 18:30] LABS: TSH (W/Ref FT4) 4.25 uIU/mL (0.36-3.74)
[2024-08-02 20:49] LABS: FREE T4 0.79 ng/dL (0.76-1.46)
== END 2024-08-02 17:53 | disposition home or self-care (01) ==
LOC: NCHCN 17:52
PROVIDERS: PCP Family Medicine; Visit Provider Family Medicine
DX: G56.02 Carpal tunnel syndrome, left upper limb (principal)
CPT/HCPCS: 84439; 84443

== ENCOUNTER 2024-10-06 15:33 | Outpatient (REF) | payer MEDICAID, SELFPAY ==
[2024-10-06 20:57] LABS: TSH 1.03 uIU/mL (0.36-3.74)
[2024-10-06 21:14] LABS: FREE T4 1.05 ng/dL (0.76-1.46)
== END 2024-10-06 15:34 | disposition home or self-care (01) ==
LOC: NCHCN 15:33
PROVIDERS: PCP Family Medicine; Visit Provider Family Medicine
DX: E03.9 Hypothyroidism, unspecified (principal)
CPT/HCPCS: 84439; 84443

== ENCOUNTER 2025-01-03 11:52 | Outpatient (CLI) | payer MEDICAID, SELFPAY ==
--- NOTE | 2025-01-11 09:40 | W.NUTRFU ---
Date of service: 01/03/25 Time of Service: 11:30 Nutrition Note NOTE: Izabel referred to nutrition visit for help with yanet mgt. She provided a long hx of her weight changes. She feels the mirtazapine she takes and has increased has contributed to weight gain (but has helped with gastroparesis she states she manages), as well as the gabapentin. She shares she has gained 30lbs over the last 5-8 months. She updates me that the last month has been a time where she has really doubled down on healthy eating and walking more. Breakfast - yogurt/granola bar L:smoked turkey and cheese with espino in wrap or microwave meal D- lives with mother - mom makes dinner with salad or veggie present. Food budget a barrier - less than 300 per month in [employer]. Not working currently Averaging 4,000 steps per day right now - using my fitness pal has some texture issues with some foods. Izabel has brought a red 32oz powerade with her to the appt and we talked about added sugar. She dilutes she says with half water but still will drink the whole thing durinng the course of the day - which is over 50g added sugar. We discussed this topic, getting protein needs met and using beans lentils and other inexpensive plant protein sources along with lean animal sources Low fiber intake assessed - reviewed goal for this and plant sources (again beans and lentils for the double whammy) Reviewed some ideas to help above focus areas -consider whey protein powder in the morning with a veggie choices - think sc eggs with tomato and spinach -have at least 2 servings of whole fruit or veggies at each meal. -avoid sweetened bevs - even juice -no bread products unless they have at least 3 grams of fiber per serving (triscuits, arnolds stone ground bread, etc...) Encouraged more steps and consider getting into some safe resistance training to help stimulate better insulin sensitiveity and help with body recomposition. GAve her my card to contact with any questions or need for follow up Time Spent in Nutritional Counseling and Treatment: 55 min
== END 2025-01-03 11:53 | disposition home or self-care (01) ==
LOC: DS 11:55
PROVIDERS: PCP Family Medicine; Visit Provider Dietitian, Registered
DX: Z71.3 Dietary counseling and surveillance (principal)
CPT/HCPCS: 00123; 97802